=== PATIENT | female | born 1935 | race Caucasian/White ===

== ENCOUNTER 2017-12-23 12:44 | Inpatient (IN) | payer MEDICARE, OTHER, SELFPAY ==
[2017-12-23] VITALS (14 sets, daily range): BP systolic 133–150; BP diastolic 57–95; PULSE 73–122; RESP 14–21; TEMP 36.6–36.9; O2SAT 98–100; BMI 23.3; BMI 25.6; BMI 26.9; BMI 27.0
--- NOTE | 2017-12-23 12:53 | RAD_ITS ---
STUDY: X-RAY CHEST REASON FOR EXAM: Female, 82 years old. Trauma, dysrhythmia TECHNIQUE: Single AP portable view of the chest. COMPARISON: 02/28/2017 FINDINGS: Cardiac monitoring leads overlie the chest. The lungs are clear and expanded. There is no demonstrated pleural abnormality. There is mild cardiac enlargement. Normal mediastinum and ally[place]. Normal visualized pulmonary arteries. There is atherosclerotic calcification of the aortic arch with tortuosity. There are diffuse degenerative changes of the visualized thoracic spine. Normal visualized ribs, clavicles, and shoulders. There is no demonstrated abnormality of the visualized soft tissue structures of the upper abdomen. RAD/Chest 1 View IMPRESSION: Mild cardiomegaly. No focal consolidation. Electronically Signed: Lewis Washington DO at 13:38 EDT Tel , Service support ,
--- NOTE | 2017-12-23 12:53 | CT_ITS ---
STUDY: CT BRAIN WITHOUT CONTRAST REASON FOR EXAM: Female, 82 years old. Trauma, slurred speech RADIATION DOSAGE (If Supplied By Facility): CTDIvol = ( 44.99 ) mGy, DLP = ( 745.49 ) mGycm TECHNIQUE: Transaxial CT imaging of the brain was performed without administration of intravenous contrast material. Sagittal and coronal reconstructed images are provided and reviewed. Individualized dose optimization techniques were used for this CT. COMPARISON: None. FINDINGS: Normal soft tissue structures. The skull is demineralized. Normal size ventricles and extra-axial spaces for the patient's age. There are areas of decreased attenuation within the white matter tracts of the supratentorial brain, consistent with microvascular disease changes. Normal basal ganglia and thalami. Normal brainstem. Normal cerebellum. There is no intracranial hemorrhage. There are no findings of an acute ischemic infarction. Normal visualized paranasal sinuses. CT/Brain/Head without Contrast IMPRESSION: Chronic involutional changes. No acute intracranial abnormality. N.B. : The above information has been verbally conveyed by Lewis Washington DO to Fred Luu, Referring Physician, on 12/23/2017 13:08:04 (ET). Electronically Signed: Lewis Washington DO at 13:08 EDT Tel , Service support , N.B. : The above information has been verbally conveyed by Lewis Washington DO to Fred Luu, Referring Physician, on 12/23/2017 13:08:04 (ET).
--- NOTE | 2017-12-23 12:53 | EKG12_ITS ---
Test Reason : NEURO Blood Pressure : / mmHG Vent. Rate : 084 BPM Atrial Rate : 119 BPM P-R Int : 000 ms QRS Dur : 092 ms QT Int : 366 ms P-R-T Axes : 000 066 242 degrees QTc Int : [address] & T wave abnormality, consider inferior ischemia ST & T wave abnormality, consider anterolateral ischemia Abnormal ECG Confirmed by DINORA GALAN, KVNG ([id number]), art editor BRUCE MEJIA ([id number]) on 12/28/2017 3:39:51 PM Referred By: TODD Confirmed By:KVNG FARIAS MD
[2017-12-23 12:55] LABS: Bedside Glucose 167 mg/dL (70-110)
--- NOTE | 2017-12-23 12:57 | CT_ITS ---
STUDY: CTA OF THE BRAIN REASON FOR EXAM: Female, 82 years old. Stroke RADIATION DOSAGE (If Supplied By Facility): CTDIvol = ( 22.09 ) mGy, DLP = ( 537.88 ) mGycm TECHNIQUE: CT angiography was performed with a multi-detector CT scanner. Data acquisition was obtained from the skull base through the vertex following intravenous administration of 75 ml of to be 370. MIP images were reconstructed from the axial data set. Post-processing of the angiographic images was performed, with multiplanar reformation and 3D reconstruction. Individualized dose optimization techniques were used for this CT. COMPARISON: None. FINDINGS: Normal bilateral petrous carotid arteries. Mildly calcified right cavernous carotid artery with a normal supraclinoid bifurcation. Mildly calcified left cavernous carotid artery with a normal supraclinoid bifurcation. Normal right A1 segments of the anterior cerebral artery. Normal left A1 segments of the anterior cerebral artery. Normal intact anterior communicating artery (ACOM). Normal bilateral A2 segments of the anterior cerebral arteries. Normal right M1 and M2 segments of the middle cerebral arteries, with a normal M1 bifurcation. Normal left M1 and M2 segments of the middle cerebral arteries, with a normal M1 bifurcation. Nonvisualization of the posterior communicating arteries (PCOM). Normal bilateral vertebral arteries. Normal basilar artery with a normal basilar bifurcation. The visualized bilateral superior cerebellar (SCA) arteries are normal. Normal bilateral P1, P2 and visualized P3 segments of the posterior cerebral arteries. There is no demonstrated aneurysm of the [place]. IMPRESSION: Normal [place] without a demonstrated aneurysm or hemodynamically significant stenosis. N.B. : The above information has been verbally conveyed by Tyler Ambrose DO to Fred Luu, Referring Physician, on 12/23/2017 13:40:04 (ET). Electronically Signed: Tyler Ambrose DO at 13:38 EDT Tel [phone], Service support , STUDY: CTA NECK WITH CONTRAST REASON FOR EXAM: Female, 82 years old. Stroke TECHNIQUE: CT angiography with multi-detector data acquisition was performed from the aortic arch to the skull base following intravenous administration of 75ML ml of Isovue 370 contrast. MIP images were reconstructed from the axial data set. Post-processing of the angiographic images was performed, with multiplanar reformation and 3D reconstruction. Individualized dose optimization techniques were used for this CT. COMPARISON: None. FINDINGS: AORTIC ARCH: Calcified visualized aortic arch. Normal origins of the brachiocephalic, left common carotid arteries. Mildly calcified left subclavian arterial origin and proximal segment. RIGHT CAROTID ARTERIES: Normal right common carotid artery (CCA). Atherosclerotic calcifications at the right common carotid bulb without hemodynamically significant stenosis. Normal origin of the right internal carotid (ICA) artery without a hemodynamically significant stenosis. Normal visualized cervical portion of the right internal carotid artery. Normal origin of the right external carotid artery (ECA). LEFT CAROTID ARTERIES: Normal left common carotid artery (CCA). Mild atherosclerotic calcifications at the left common carotid bulb. Normal origin of the left internal carotid (ICA) artery without a hemodynamically significant stenosis. Normal visualized cervical portion of the left internal carotid artery. Normal origin of the left external carotid artery (ECA). VERTEBRAL ARTERIES: Normal bilateral vertebral arteries. CT/CTA Head W/WO Contrast IMPRESSION: Mild atherosclerotic calcifications at the bilateral carotid bulbs with no hemodynamically significant stenosis. Normal vertebral arteries. N.B. : The above information has been verbally conveyed by Tyler Ambrose DO to Fred Luu, Referring Physician, on 12/23/2017 13:40:04 (ET). Electronically Signed: Tyler Ambrose DO at 13:33 EDT Tel [phone], Service support , N.B. : The above information has been verbally conveyed by Tyler Ambrose DO to Fred Luu, Referring Physician, on 12/23/2017 13:40:04 (ET).
--- NOTE | 2017-12-23 12:57 | CT_ITS ---
STUDY: CTA OF THE BRAIN REASON FOR EXAM: Female, 82 years old. Stroke RADIATION DOSAGE (If Supplied By Facility): CTDIvol = ( 22.09 ) mGy, DLP = ( 537.88 ) mGycm TECHNIQUE: CT angiography was performed with a multi-detector CT scanner. Data acquisition was obtained from the skull base through the vertex following intravenous administration of 75 ml of to be 370. MIP images were reconstructed from the axial data set. Post-processing of the angiographic images was performed, with multiplanar reformation and 3D reconstruction. Individualized dose optimization techniques were used for this CT. COMPARISON: None. FINDINGS: Normal bilateral petrous carotid arteries. Mildly calcified right cavernous carotid artery with a normal supraclinoid bifurcation. Mildly calcified left cavernous carotid artery with a normal supraclinoid bifurcation. Normal right A1 segments of the anterior cerebral artery. Normal left A1 segments of the anterior cerebral artery. Normal intact anterior communicating artery (ACOM). Normal bilateral A2 segments of the anterior cerebral arteries. Normal right M1 and M2 segments of the middle cerebral arteries, with a normal M1 bifurcation. Normal left M1 and M2 segments of the middle cerebral arteries, with a normal M1 bifurcation. Nonvisualization of the posterior communicating arteries (PCOM). Normal bilateral vertebral arteries. Normal basilar artery with a normal basilar bifurcation. The visualized bilateral superior cerebellar (SCA) arteries are normal. Normal bilateral P1, P2 and visualized P3 segments of the posterior cerebral arteries. There is no demonstrated aneurysm of the [place]. IMPRESSION: Normal [place] without a demonstrated aneurysm or hemodynamically significant stenosis. N.B. : The above information has been verbally conveyed by Tyler Ambrose DO to Fred Luu, Referring Physician, on 12/23/2017 13:40:04 (ET). Electronically Signed: Tyler Ambrose DO at 13:38 EDT Tel [phone], Service support , STUDY: CTA NECK WITH CONTRAST REASON FOR EXAM: Female, 82 years old. Stroke TECHNIQUE: CT angiography with multi-detector data acquisition was performed from the aortic arch to the skull base following intravenous administration of 75ML ml of Isovue 370 contrast. MIP images were reconstructed from the axial data set. Post-processing of the angiographic images was performed, with multiplanar reformation and 3D reconstruction. Individualized dose optimization techniques were used for this CT. COMPARISON: None. FINDINGS: AORTIC ARCH: Calcified visualized aortic arch. Normal origins of the brachiocephalic, left common carotid arteries. Mildly calcified left subclavian arterial origin and proximal segment. RIGHT CAROTID ARTERIES: Normal right common carotid artery (CCA). Atherosclerotic calcifications at the right common carotid bulb without hemodynamically significant stenosis. Normal origin of the right internal carotid (ICA) artery without a hemodynamically significant stenosis. Normal visualized cervical portion of the right internal carotid artery. Normal origin of the right external carotid artery (ECA). LEFT CAROTID ARTERIES: Normal left common carotid artery (CCA). Mild atherosclerotic calcifications at the left common carotid bulb. Normal origin of the left internal carotid (ICA) artery without a hemodynamically significant stenosis. Normal visualized cervical portion of the left internal carotid artery. Normal origin of the left external carotid artery (ECA). VERTEBRAL ARTERIES: Normal bilateral vertebral arteries. CT/CTA Neck W/WO Contrast IMPRESSION: Mild atherosclerotic calcifications at the bilateral carotid bulbs with no hemodynamically significant stenosis. Normal vertebral arteries. N.B. : The above information has been verbally conveyed by Tyler Ambrose DO to Fred Luu, Referring Physician, on 12/23/2017 13:40:04 (ET). Electronically Signed: Tyler Ambrose DO at 13:33 EDT Tel [phone], Service support , N.B. : The above information has been verbally conveyed by Tyler Ambrose DO to Fred Luu, Referring Physician, on 12/23/2017 13:40:04 (ET).
[2017-12-23 13:37] LABS: Absolute Lymphocyte Count 0.54 X10^3/ul (0.83-4.51); Absolute Neutrophil Count 7.3 X10^3/uL (2.0-7.7); Basophil# 0.03 X10^3/uL; Basophil% 0.4 % (0-1); Eosinophils% 1.2 % (0-5); Hemoglobin 11.1 g/dl (12.0-15.0); Lymphocyte # 0.54 X10^3/ul (4.0); Lymphocyte % 6.5 % (19-41); Mean Corp Hgb Conc 32.6 g/gl (32-36); Mean Corpuscular Hgb 33.1 pg (27.0-32.0); Mean Corpuscular Volume 101.5 fL (81-99); Mean Platelet Vol. 9.6 fl (6.2-12.0); Monocyte# 0.29 X10^3/uL; Monocyte% 3.5 % (0-10); Neutrophil # 7.32 X10^3/uL (2.7-7.7); Platelet Count 230 K/mm3 (150-450); RBC Distribution Width CV 14.5 % (11.6-14.6); RBC Distribution Width SD 50.6 fl (35.1-43.9); Red Blood Count 3.35 M/mm3 (4.2-5.4); White Blood Count 8.3 K/mm3 (4.4-11.0)
[2017-12-23 13:38] LABS: Differential Indicated SCAN CRITERIA MET; POSITIVE COUNT NO; POSITIVE DIFFERENTIAL YES; POSITIVE MORPHOLOGY NO
--- NOTE | 2017-12-23 13:38 | PCA ---
PRINTED OLD EKG
[2017-12-23 13:46] LABS: International Normalized Ratio 1.2; Prothrombin Time (Protime)PT. 14.8 SECONDS (11.7-14.9)
[2017-12-23 13:47] LABS: Anion Gap 7 (5-15); BUN 24 mg/dL (7-18); Calcium,Total 8.2 mg/dL (8.5-10.1); Chloride 107 mmol/L (98-107); Creatinine, Serum 1.09 mg/dL (0.55-1.02); EST Glomerular Filtration Rate 51 mL/min (>60); Est Glom Filt Rate - Afr Amer 62 mL/min (>60); Estimated Creatinine Clearance 38.54 ml/min; Glucose 143 mg/dL (74-106); Partial Thromboplast Time 28.3 Seconds (24.1-36.2); Potassium 4.1 mmol/L (3.5-5.1); Sodium Level 139 mmol/L (136-145)
[2017-12-23 13:59] LABS: Hypochromasia RARE; Platelet Estimate ADEQUATE (ADEQ)
--- NOTE | 2017-12-23 14:04 | ED.VISSUMM ---
- ER Visit Summary Date of Service: 12/23/17 Chief Complaint: [] History of Present Illness: The patient is a 82 F [presents to the emergency department complaint of slurred speech that started about 20 minutes ago. Patient apparently had a mechanical fall initially about half an hour ago where her wheel from her walker got caught on the couch and she fell into the couch. Patient does not feel like she injured herself. Her head did not hurt. Subsequently patient then several minutes later developed slurred speech and called the squad. Patient denies any weakness currently. She denies any headache. Patient does have a history of atrial fibrillation but is currently not anticoagulated. Patient has not had prior stroke.] Physical Examination: [HEENT-PERRLA, EOMI. Cranial nerves II through XII grossly intact. TMs clear. Mucous membranes moist. No adenopathy. Cardiovascular-regular rate and rhythm without murmur or ectopy Lungs-clear to auscultation, chest wall stable without crepitus or subcu emphysema Abdomen-normoactive bowel sounds, soft, nontender, no rebound or rigidity, no peritoneal signs. Neuro exam-no facial droop noted, speech slightly garbled and thick. No expressive aphasia. No focal weakness. NIH stroke scale was a 1 for the slurred speech. Extremities-intact ?4, normal range of motion, normal pulses, atraumatic] Test Results: [CT scan of the brain without contrast showed nothing acute. EKG obtained on arrival shows sinus rhythm with a ventricular rate of 84 bpm with some nonspecific ST changes. CBC with differential showed a white of 8.3, hemoglobin 11, hematocrit 34, platelets 230. Chemistries unremarkable. INR was 1.2. Troponin was less than 0.015. Chest x-ray showed nothing acute. CTA of the head and neck showed nothing significant.] Emergency Department Course and Treatment: [Patient case initially discussed with neurologist on-call . Patient discussed with hospitalist and will be admitted] Treatment Plan: [Admit for further workup and evaluation of CVA Disposition: [Admit] Impression: [CVA Atrial fibrillation] This note was generated with [employer] dictation software. It may contain incorrect words, spelling, and punctuation that were not noted in review of the chart prior to signing ED Disposition - Plan for ED Patient: Chief Complaint: Neuro S/Sx Referrals: Delfin Kamara MD [Primary Care Provider] -
--- NOTE | 2017-12-23 14:21 | PCM.HP.STD ---
Problem List (1) Rheumatoid arthritis Status: Chronic (2) Nonrheumatic mitral valve regurgitation Status: Chronic (3) Persistent atrial fibrillation Status: Chronic (4) Hypertension Status: Chronic Qualifiers: Hypertension type: essential hypertension Qualified Code(s): I10 - Essential (primary) hypertension History of Present Illness Date of Admission: 12/23/17 Chief Complaint: Slurred speech. The patient is a 82 year old F with past medical history as mentioned above presented to the medicine because of slurred speech. This afternoon and around 30 minutes before coming to the emergency room, patient was walking using her walker when she tripped off and fell. According to her and shortly after, he notes that her speech is not normal, slurred and not making sense. Her [id number] was at the bedside and she mentioned that patient had facial drooping on the left side of her face. Her symptoms lasted for about 20 minutes and she started to get better after arrival to ER. Patient denies any blurred vision, vision numbness or tingling. She denied focal arm or leg weakness. She denied headache, chest pain shortness of breath. She denied dizziness or lightheadedness. She has a history of chronic atrial fibrillation and she has been on Cardizem and metoprolol for rate control and she was taken off Coumadin on March, for nosebleeds according to the patient. She has history of hypertension she has been on ramipril and metoprolol and her blood pressure seems to be under control. She has history of rheumatoid arthritis and she has been long-term steroid therapy. In the emergency department, her vital signs are stable. Her routine blood work is remarkable for chronic anemia with stable hemoglobin, otherwise normal. Troponin is negative. EKG revealed A. fib, T-wave inversion in leads II and III as well as lateral chest leads which are chronic compared to EKG from February,, no acute changes. Chest x-ray revealed mild cardiomegaly, no acute findings. CT scan brain showed no acute infarction or hemorrhage. CTA of the head and neck revealed no hemodynamically significant vascular disease or stenosis, pending official report. She is being admitted for probable TIA with slurred speech and facial drooping for evaluation. Past Medical History Past Medical History (Chronic Problems): Chronic Problems (Last Reviewed 07/13/17 @ 11:53 by Rossi Lala) Rheumatoid arthritis (Chronic) Nonrheumatic mitral valve regurgitation (Chronic) Nonrheumatic mitral (valve) stenosis (Chronic) Persistent atrial fibrillation (Chronic) Hypertension (Chronic) Medical History: Medical History (Last Reviewed 07/13/17 @ 11:53 by Rossi Lala) Nonrheumatic mitral valve regurgitation (Chronic) I34.0 Nonrheumatic mitral (valve) stenosis (Chronic) I34.2 Persistent atrial fibrillation (Chronic) I48.1 Hypertension (Chronic) I10 Anemia D64.9 Osteopenia M85.80 Rheumatoid arthritis M06.9 Squamous cell carcinoma of skin C44.92 Viral myocarditis B33.22 CAP (community acquired pneumonia) (Inactive) J18.9 Cardiac dysrhythmia (Inactive) I49.9 Chronic a-fib (Inactive) I48.2 Lower extremity pain, left (Inactive) M79.605 Nausea and vomiting (Inactive) R11.2 Rheumatoid arthritis (Inactive) M06.9 Sepsis associated hypotension (Inactive) A41.9 Allergies doxycycline Adverse Reaction (Severe, Verified 12/09/17 10:33) GI Upset hydrochlorothiazide Adverse Reaction (Unknown, Verified 12/09/17 10:33) Unknown tramadol HCl [From Myfacepage] Adverse Reaction (Verified 12/09/17 10:33) Vomiting Home Medications: Ambulatory Orders Medication Instructions Recorded Folic Acid 1 mg PO DAILY@0800 05/03/13 Methotrexate 10 mg PO BID 05/03/13 Metoprolol(XL)Succ [Toprol Xl 100 mg PO DAILY 05/03/13 (Beta Anne)] predniSONE tablet 5 mg PO DAILY 05/03/13 Diltiazem CD [Cardizem CD] 240 mg PO DAILY #30 cap 10/11/14 alendronate 70 mg tablet 70 mg PO QWEEK 07/10/17 cholecalciferol (vitamin D3) 2,000 2,000 unit PO QDAY cap 07/10/17 unit capsule multivit with 1 tab PO QDAY ea 07/10/17 [id number]-[id number]-YX-lutein 8 mg iron-400 mcg-300 mcg tablet leucovorin calcium 5 mg tablet 5 mg PO QWEEK tab 07/13/17 ramipril 10 mg capsule 20 mg PO DAILY cap 07/13/17 Surgical History: Surgical History (Last Reviewed 12/09/17 @ 10:34 by Claudia Ayala) History of breast biopsy Z98.890 Rt History of hip replacement, total Z96.649 Rt/Lt History of knee replacement Z96.659 Lt Surgical History: total hip arthroplasty, total knee arthroplasty Psychiatric History: No pertinent psych hx [employer] History: No pertinent [employer]GER history Lives: Spouse/ Significant Other Smoking Status: Never smoker Alcohol: None Drugs: None - *Family History Maternal Family History: Family History (Last Reviewed 12/09/17 @ 10:34 by Claudia Ayala) Mother Heart disease Hypertension History Items: - - Lung cancer Paternal Family History: Family History (Last Reviewed 12/09/17 @ 10:34 by Claudia Ayala) Mother Heart disease Hypertension History Items: No pertinent history, - Review of Systems Constitutional: Denies: Anorexia, Chills, Fever, Weakness Eyes: Denies: Blurred vision, Double vision, Drainage, Redness, Vision Change HEENT: Denies: Difficulty Hearing, Ear Pain, Eye Pain, Nasal Congestion, Sore Throat Cardiovascular: Denies: Chest Pain, Chest Pressure, Chest Tightness, Heaviness, Palpitations, Syncope Respiratory: Denies: Cough, Hemoptysis, Shortness of Breath, Sputum production, Wheezing Gastrointestinal: Denies: Abdominal Pain, Constipation, Diarrhea, Nausea, Vomiting Genitourinary: Denies: Dysuria, Frequency, Hematuria Musculoskeletal: Denies: Arm Pain, Back Pain, Foot Pain Skin: Denies: Dryness, Rash Neurological: Reports: Change in Speech, Slurred speech. Denies: Balance problems, Double vision, Confusion, Focal weakness, Headaches, Incoordination, Numbness, Tingling Psychiatric: Denies: Anxiety, Depression Endocrine: Denies: Change in Body Habitus, Polydipsia VTE Information - Inpt Only VTE Present on Admission: No VTE Mechan Device Prophylaxis: None VTE Pharm Prophylaxis ordered?: Yes - Physical Exam General: Alert, Oriented x3, Cooperative, No apparent distress HEENT: Atraumatic, PERRLA, EOMI Oral: Moist Mucosa, No Gingival or Mucosal Lesions/ Ulcerations Neck: Supple, No JVD, Negative Carotid Bruits, Trachea Midline, Thyroid Normal Size and Texture Lungs: Clear to auscultation, No rhonchi, No wheeze, No rales, Diminished Cardiovascular: Normal S1, Normal S2, PMI Normal, Irregular Rate Abdomen: Bowel Sounds Present, Soft, Non Tender, Non-Distended, No Hepato-splenomegaly Extremities: No clubbing, No cyanosis, No edema Skin: No rashes, No breakdown Lymphatic: No Cervical, Supraclavicular, or Inguinal Adenopathy Neurological: Cranial nerves II-XII grossly intact, Motor Exam 5/5 strength throughout Psych/Mental Status: Normal Affect, Appropriate, Alert and oriented to time, place, person, mood and affect Vital Signs Temp Pulse Resp BP Pulse Ox 98.4 F 97 16 133/90 H 99 12/23/17 12:46 12/23/17 13:18 12/23/17 13:18 12/23/17 13:18 12/23/17 13:18 Oxygen Delivery Method Room Air Weight: 158 lb 11.725 oz Body Mass Index (BMI) 25.6 Finger Stick Blood Glucose 126 Laboratory Tests Past 24 Hrs 12/23/17 12/23/17 12/23/17 13:21 13:21 13:21 WBC 8.3 RBC 3.35 L Hgb 11.1 L Hct 34.0 L MCV 101.5 H MCH 33.1 H MCHC 32.6 RDW 14.5 RDW Differential 50.6 H Plt Count 230 MPV 9.6 Immature Gran % (Auto) 0.400 Neut % (Auto) 88.0 H Lymph % (Auto) 6.5 L [place] % (Auto) 3.5 Eos % (Auto) 1.2 Baso % (Auto) 0.4 Absolute Neuts (auto) 7.3 Absolute Lymphs (auto) 0.54 L Total Counted Not Reportable Platelet Estimate ADEQUATE Hypochromasia RARE PT 14.8 INR 1.2 APTT 28.3 Sodium 139 Potassium 4.1 Chloride 107 Carbon Dioxide 25.0 Anion Gap 7 BUN 24 H Creatinine 1.09 H Estim Creat Clear Calc 38.54 Est GFR (MDRD) Af Amer 62 Est GFR (MDRD) Non-Af 51 L BUN/Creatinine Ratio 22.0 H Glucose 143 H Calcium 8.2 L Troponin I < 0.015 POC Glucose 12/23/17 12:48 POC Glucose 167 H Assessment/Plan This is an 82 years old female patient presented to the emergency room because of slurred speech and facial drooping and she is being admitted for evaluation for possible TIA. #1 possible TIA/slurred speech/facial drooping: At this time, her NIH score is 0. Her vital signs are stable. Initial CT scan brain showed no acute infarction or hemorrhage, pending official report. CTA of the neck was unremarkable, pending official report. She has no focal deficit on exam. She has a history of A. fib, was taken off Coumadin on March,. Plan: Admit to PCU for observation, cardiac monitoring, NIH stroke scale, 2D echocardiogram, MRI brain, fasting lipid profile, start baby aspirin, Lipitor, neurology consult, PT OT evaluation and treatment. #2 chronic atrial fibrillation: Rate is controlled, blood pressure stable. Continue Cardizem and metoprolol for rate control. She is not on anticoagulation. Apparently, Coumadin was discontinued on March, because of nosebleeds. Patient may need to go back on anticoagulation if MRI revealed acute stroke. #3 hypertension: Blood pressure stable, continue metoprolol and ramipril. #4 rheumatoid arthritis: Continue prednisone, methotrexate and leucovorin. #5 DVT prophylaxis: Subcu heparin. This note was generated with panOpen dictation software. It may contain incorrect words, spelling, and punctuation that were not noted in checking the note before signing. Code Visit OBSV E&M: 95730 Initial observation care L3
--- NOTE | 2017-12-23 14:31 | HP.PCM_ITS ---
Problem List (1) Rheumatoid arthritis Status: Chronic (2) Nonrheumatic mitral valve regurgitation Status: Chronic (3) Persistent atrial fibrillation Status: Chronic (4) Hypertension Status: Chronic Qualifiers: Hypertension type: essential hypertension Qualified Code(s): I10 - Essential (primary) hypertension History of Present Illness Date of Admission: 12/23/17 Chief Complaint: Slurred speech. The patient is a 82 year old F with past medical history as mentioned above presented to the medicine because of slurred speech. This afternoon and around 30 minutes before coming to the emergency room, patient was walking using her walker when she tripped off and fell. According to her and shortly after, he notes that her speech is not normal, slurred and not making sense. Her yyamhavk-ov-tdd was at the bedside and she mentioned that patient had facial drooping on the left side of her face. Her symptoms lasted for about 20 minutes and she started to get better after arrival to ER. Patient denies any blurred vision, vision numbness or tingling. She denied focal arm or leg weakness. She denied headache, chest pain shortness of breath. She denied dizziness or lightheadedness. She has a history of chronic atrial fibrillation and she has been on Cardizem and metoprolol for rate control and she was taken off Coumadin on March, for nosebleeds according to the patient. She has history of hypertension she has been on ramipril and metoprolol and her blood pressure seems to be under control. She has history of rheumatoid arthritis and she has been long-term steroid therapy. In the emergency department, her vital signs are stable. Her routine blood work is remarkable for chronic anemia with stable hemoglobin, otherwise normal. Troponin is negative. EKG revealed A. fib, T-wave inversion in leads II and III as well as lateral chest leads which are chronic compared to EKG from February,, no acute changes. Chest x-ray revealed mild cardiomegaly, no acute findings. CT scan brain showed no acute infarction or hemorrhage. CTA of the head and neck revealed no hemodynamically significant vascular disease or stenosis, pending official report. She is being admitted for probable TIA with slurred speech and facial drooping for evaluation. Past Medical History Past Medical History (Chronic Problems): Chronic Problems (Last Reviewed 07/13/17 @ 11:53 by Rossi Lala) Rheumatoid arthritis (Chronic) Nonrheumatic mitral valve regurgitation (Chronic) Nonrheumatic mitral (valve) stenosis (Chronic) Persistent atrial fibrillation (Chronic) Hypertension (Chronic) Medical History: Medical History (Last Reviewed 07/13/17 @ 11:53 by Rossi Lala) Nonrheumatic mitral valve regurgitation (Chronic) I34.0 Nonrheumatic mitral (valve) stenosis (Chronic) I34.2 Persistent atrial fibrillation (Chronic) I48.1 Hypertension (Chronic) I10 Anemia D64.9 Osteopenia M85.80 Rheumatoid arthritis M06.9 Squamous cell carcinoma of skin C44.92 Viral myocarditis B33.22 CAP (community acquired pneumonia) (Inactive) J18.9 Cardiac dysrhythmia (Inactive) I49.9 Chronic a-fib (Inactive) I48.2 Lower extremity pain, left (Inactive) M79.605 Nausea and vomiting (Inactive) R11.2 Rheumatoid arthritis (Inactive) M06.9 Sepsis associated hypotension (Inactive) A41.9 Allergies doxycycline Adverse Reaction (Severe, Verified 12/09/17 10:33) GI Upset hydrochlorothiazide Adverse Reaction (Unknown, Verified 12/09/17 10:33) Unknown tramadol HCl [From [facility]] Adverse Reaction (Verified 12/09/17 10:33) Vomiting Home Medications: Ambulatory Orders Medication Instructions Recorded Folic Acid 1 mg PO DAILY@0800 05/03/13 Methotrexate 10 mg PO BID 05/03/13 Metoprolol(XL)Succ [Toprol Xl 100 mg PO DAILY 05/03/13 (Beta Anne)] predniSONE tablet 5 mg PO DAILY 05/03/13 Diltiazem CD [Cardizem CD] 240 mg PO DAILY #30 cap 10/11/14 alendronate 70 mg tablet 70 mg PO QWEEK 07/10/17 cholecalciferol (vitamin D3) 2,000 2,000 unit PO QDAY cap 07/10/17 unit capsule multivit with 1 tab PO QDAY ea 07/10/17 jztpdbiv-qsef-SE-lutein 8 mg iron-400 mcg-300 mcg tablet leucovorin calcium 5 mg tablet 5 mg PO QWEEK tab 07/13/17 ramipril 10 mg capsule 20 mg PO DAILY cap 07/13/17 Surgical History: Surgical History (Last Reviewed 12/09/17 @ 10:34 by Claudia Ayala) History of breast biopsy Z98.890 Rt History of hip replacement, total Z96.649 Rt/Lt History of knee replacement Z96.659 Lt Surgical History: total hip arthroplasty, total knee arthroplasty Psychiatric History: No pertinent psych hx 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: No 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 FIELD SUPPORT REP history Lives: Spouse/ Significant Other Smoking Status: Never smoker Alcohol: None Drugs: None - *Family History Maternal Family History: Family History (Last Reviewed 12/09/17 @ 10:34 by Claudia Ayala) Mother Heart disease Hypertension History Items: - - Lung cancer Paternal Family History: Family History (Last Reviewed 12/09/17 @ 10:34 by Claudia Ayala) Mother Heart disease Hypertension History Items: No pertinent history, - Review of Systems Constitutional: Denies: Anorexia, Chills, Fever, Weakness Eyes: Denies: Blurred vision, Double vision, Drainage, Redness, Vision Change HEENT: Denies: Difficulty Hearing, Ear Pain, Eye Pain, Nasal Congestion, Sore Throat Cardiovascular: Denies: Chest Pain, Chest Pressure, Chest Tightness, Heaviness, Palpitations, Syncope Respiratory: Denies: Cough, Hemoptysis, Shortness of Breath, Sputum production, Wheezing Gastrointestinal: Denies: Abdominal Pain, Constipation, Diarrhea, Nausea, Vomiting Genitourinary: Denies: Dysuria, Frequency, Hematuria Musculoskeletal: Denies: Arm Pain, Back Pain, Foot Pain Skin: Denies: Dryness, Rash Neurological: Reports: Change in Speech, Slurred speech. Denies: Balance problems, Double vision, Confusion, Focal weakness, Headaches, Incoordination, Numbness, Tingling Psychiatric: Denies: Anxiety, Depression Endocrine: Denies: Change in Body Habitus, Polydipsia VTE Information - Inpt Only VTE Present on Admission: No VTE Mechan Device Prophylaxis: None VTE Pharm Prophylaxis ordered?: Yes - Physical Exam General: Alert, Oriented x3, Cooperative, No apparent distress HEENT: Atraumatic, PERRLA, EOMI Oral: Moist Mucosa, No Gingival or Mucosal Lesions/ Ulcerations Neck: Supple, No JVD, Negative Carotid Bruits, Trachea Midline, Thyroid Normal Size and Texture Lungs: Clear to auscultation, No rhonchi, No wheeze, No rales, Diminished Cardiovascular: Normal S1, Normal S2, PMI Normal, Irregular Rate Abdomen: Bowel Sounds Present, Soft, Non Tender, Non-Distended, No Hepato- splenomegaly Extremities: No clubbing, No cyanosis, No edema Skin: No rashes, No breakdown Lymphatic: No Cervical, Supraclavicular, or Inguinal Adenopathy Neurological: Cranial nerves II-XII grossly intact, Motor Exam 5/5 strength throughout Psych/Mental Status: Normal Affect, Appropriate, Alert and oriented to time, place, person, mood and affect Vital Signs Temp Pulse Resp BP Pulse Ox 98.4 F 97 16 133/90 H 99 12/23/17 12:46 12/23/17 13:18 12/23/17 13:18 12/23/17 13:18 12/23/17 13:18 Oxygen Delivery Method Room Air Weight: 158 lb 11.725 oz Body Mass Index (BMI) 25.6 Finger Stick Blood Glucose 126 Laboratory Tests Past 24 Hrs 12/23/17 12/23/17 12/23/17 13:21 13:21 13:21 WBC 8.3 RBC 3.35 L Hgb 11.1 L Hct 34.0 L MCV 101.5 H MCH 33.1 H MCHC 32.6 RDW 14.5 RDW Differential 50.6 H Plt Count 230 MPV 9.6 Immature Gran % (Auto) 0.400 Neut % (Auto) 88.0 H Lymph % (Auto) 6.5 L [place] % (Auto) 3.5 Eos % (Auto) 1.2 Baso % (Auto) 0.4 Absolute Neuts (auto) 7.3 Absolute Lymphs (auto) 0.54 L Total Counted Not Reportable Platelet Estimate ADEQUATE Hypochromasia RARE PT 14.8 INR 1.2 APTT 28.3 Sodium 139 Potassium 4.1 Chloride 107 Carbon Dioxide 25.0 Anion Gap 7 BUN 24 H Creatinine 1.09 H Estim Creat Clear Calc 38.54 Est GFR (MDRD) Af Amer 62 Est GFR (MDRD) Non-Af 51 L BUN/Creatinine Ratio 22.0 H Glucose 143 H Calcium 8.2 L Troponin I < 0.015 POC Glucose 12/23/17 12:48 POC Glucose 167 H Assessment/Plan This is an 82 years old female patient presented to the emergency room because of slurred speech and facial drooping and she is being admitted for evaluation for possible TIA. #1 possible TIA/slurred speech/facial drooping: At this time, her NIH score is 0. Her vital signs are stable. Initial CT scan brain showed no acute infarction or hemorrhage, pending official report. CTA of the neck was unremarkable, pending official report. She has no focal deficit on exam. She has a history of A. fib, was taken off Coumadin on March,. Plan: Admit to PCU for observation, cardiac monitoring, NIH stroke scale, 2D echocardiogram , MRI brain, fasting lipid profile, start baby aspirin, Lipitor, neurology consult, PT OT evaluation and treatment. #2 chronic atrial fibrillation: Rate is controlled, blood pressure stable. Continue Cardizem and metoprolol for rate control. She is not on anticoagulation. Apparently, Coumadin was discontinued on March, because of nosebleeds. Patient may need to go back on anticoagulation if MRI revealed acute stroke. #3 hypertension: Blood pressure stable, continue metoprolol and ramipril. #4 rheumatoid arthritis: Continue prednisone, methotrexate and leucovorin. #5 DVT prophylaxis: Subcu heparin. This note was generated with [employer]. cn dictation software. It may contain incorrect words, spelling, and punctuation that were not noted in checking the note before signing. Code Visit OBSV E&M: 07945 Initial observation care L3
--- NOTE | 2017-12-23 15:09 | MRI_ITS ---
STUDY: MRI BRAIN WITHOUT CONTRAST REASON FOR EXAM: Female, 82 years old. Left facial droop. Falls. TECHNIQUE: Standardized multiplanar fat and water weighted pulse sequences were obtained. COMPARISON: CT head and CTA head 12/23/2017. FINDINGS: Curvilinear restricted diffusion in the posterior right insular cortex (series 4, images 14-15) is also visible on the T2 FLAIR sequence. This is subacute ischemic infarct. There is T2 shine through in the right subinsular white matter due to an old lacunar cystic infarct. Normal size of the ventricles and extra-axial spaces for the patient's age. Normal white matter tracts of the supratentorial brain. Normal bilateral basal ganglia. Normal thalami. There is no extra-axial fluid accumulation. Normal flow voids within the major intracranial circulation suggesting patency by spin echo criteria. Normal sella turcica, pituitary gland, infundibular stalk, optic chiasm and hypothalamus. Normal tectal plate and pineal gland. Normal midbrain, heath and medulla. Normal cerebellum. Normal basal cisterns. Normal bilateral temporal bones. Normal bilateral internal auditory canals. No demonstrated orbital abnormality, within the constraints of a routine brain study. Normal visualized paranasal sinuses. Normal calvarium and skull base. Normal visualized soft tissue structures. Normal visualized upper cervical spine. MRI/Brain without Contrast IMPRESSION: 1. Subacute ischemic infarct in the right posterior insular cortex. 2. 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 Electronically Signed: Ash Monae MD at 9:13 EDT , Service support ,
--- NOTE | 2017-12-23 15:09 | ECHOD_ITS ---
Reason For Study: TIA/CVA Procedure This was a 2D Doppler, Color Flow transthoracic echocardiogram. Exam performed portable in patient room. Left Ventricle Normal size and thickness. The estimated ejection fraction is 65 %. No regional wall motion abnormalities noted. Right Ventricle Normal size and thickness. Normal systolic function. Atria The left atrium is severely enlarged. The right atrium is moderately enlarged. Normal atrial septum. Bubble contrast study negative for right to left interatrial shunt. Mitral Valve The mitral valve is structurally normal. No prolapse or stenosis seen. Mild (1+) mitral valve insufficiency. Tricuspid Valve Normal tricuspid valve. Mild to moderate (1-2+) tricuspid valve insufficiency. Right ventricular systolic pressure estimated to be 52 mmHg. Moderate pulmonary hypertension. Aortic Valve Trisinus/trileaflet aortic valve. Normal aortic valve. Pulmonic Valve Normal pulmonic valve. Great Vessels Normal aortic root. Normal arch. The inferior vena cava is dilated. Inferior vena cava collapse with sniff. Pericardium/Pleural No pericardial effusion. Medication Performed a rapid injection of agitated mix of 9 cc saline and 1cc air to assess for atrial septal defect. MMode/2D Measurements & Calculations LVIDd: 4.8 cm IVSd: 0.90 cm Ao root diam: 3.3 cm LVIDs: 3.1 cm LVPWd: 1.1 cm RVDd: 2.8 cm FS: 35.6 % LAV(MOD-bp): 73.3 ml EDV(MOD-sp4): 75.1 ml EDV(MOD-sp2): 59.0 ml LAV(MOD-bp) Indexed: 41.2 ml/m2 ESV(MOD-sp4): 28.8 ml EF(MOD-sp2): 64.0 % LAV(MOD-sp2): 58.0 ml EF(MOD-sp4): 61.7 % LAV(MOD-sp4): 81.2 ml SV(MOD-sp4): 46.3 ml SV(MOD-sp2): 37.7 ml LA A4 area: 25.7 cm2 RA A4 area: 19.1 cm2 Doppler Measurements & Calculations MV E max gina: 82.7 cm/sec Ao V2 max: 151.4 cm/sec LV V1 max: 105.4 cm/sec Ao max P.2 mmHg LV V1 max P.5 mmHg PA V2 max: 83.3 cm/sec TR max gina: 283.5 cm/sec TR max P.4 mmHg Interpretation Summary The estimated ejection fraction is 65 %. The right atrium is moderately enlarged. Bubble contrast study negative for right to left interatrial shunt. Mild (1+) mitral valve insufficiency. Mild to moderate (1-2+) tricuspid valve insufficiency. Right ventricular systolic pressure estimated to be 52 mmHg. Moderate pulmonary hypertension. The inferior vena cava is dilated Compared to echo report dated 10/10/2014, pt now appears to be in atrial fibrillation. LV Function has remained the same. RVSP has increased from 25 to 52 mm Hg. Ordering Physician: Charlie Deleon Referring Physician: MINERVA MAIER Performed By: Cathy Dykes, MAYUR, RVT
[2017-12-23] MEDS: 0.9% Normal Saline 1,000 ML 75 ML IV (16:07)
[2017-12-23] MEDS: Metoprolol Tartrate 5 MG/5 ML Vial IV (18:39)
[2017-12-23] MEDS: Heparin Injection (Vial) 5,000 UNIT/ML VIAL 5000 UNIT SC (22:03)
[2017-12-24] VITALS (11 sets, daily range): BP systolic 112–157; BP diastolic 71–98; PULSE 37–149; RESP 16–18; TEMP 36.8–37; O2SAT 95–97; BMI 26.9
--- NOTE | 2017-12-24 02:28 | NURSING ---
dr hoang notified of the pts elevated bp and hr of afib that goes into the 130's when ambulating to the restroom.
[2017-12-24] MEDS: 0.9% Normal Saline 1,000 ML 75 ML IV (05:45)
[2017-12-24] MEDS: Heparin Injection (Vial) 5,000 UNIT/ML VIAL 5000 UNIT SC ×2 (06:04→14:59)
[2017-12-24] MEDS: Metoprolol(XL)Succ 100 MG Tablet PO (06:05)
[2017-12-24] MEDS: Ramipril 10 MG Capsule 20 MG PO (06:07)
[2017-12-24] MEDS: dilTIAZem CD 240 MG Capsule PO (06:08)
[2017-12-24 06:49] LABS: Anion Gap 9 (5-15); BUN 15 mg/dL (7-18); Calcium,Total 8.1 mg/dL (8.5-10.1); Chloride 109 mmol/L (98-107); Cholesterol 149 mg/dL (200); Creatinine, Serum 0.72 mg/dL (0.55-1.02); EST Glomerular Filtration Rate 84 mL/min (>60); Est Glom Filt Rate - Afr Amer 101 mL/min (>60); Estimated Creatinine Clearance 37.12 ml/min; Glucose 91 mg/dL (74-106); High Density Lipoprotein 50 mg/dL; Potassium 3.8 mmol/L (3.5-5.1); Sodium Level 142 mmol/L (136-145); Triglycerides 126 mg/dL; Very Low Density Lipoprotein 25 mg/dL (5-40)
[2017-12-24] MEDS: Folic Acid 1 MG Tablet PO (08:36)
[2017-12-24] MEDS: predniSONE 5 MG Tablet PO (08:36)
[2017-12-24] MEDS: Aspirin 81 MG TAB.CHEW PO (08:36)
--- NOTE | 2017-12-24 11:30 | PCM.CONS.GEN ---
Problem List (1) Stroke Status: Acute Qualifiers: CVA mechanism: embolism Precerebral and cerebral artery: middle cerebral artery Laterality of affected vessel: right Qualified Code(s): I63.411 - Cerebral infarction due to embolism of right middle cerebral artery Reason for Consult Date of Consultation: 12/24/17 Reason for Consultation: Stroke History of Present Illness: The patient is a 82 year old CF with PMH HTN, Afib not on AC due to nose bleeds admitted with fall and slurred speech. Per patient she had a mechanical fall yesterday (12/23/17), her walker caught the end of a furniture and she fell, following which she was noticed to have slurred speech, per documentation her symptoms lasted for about 20 minutes, per patient it may have lasted longer, but at present patient is back to her baseline. She denies any ROBERTS, visual disturbances, focal motor weakness, sensory loss or speech disturbances. Per documentation patient had nose bleeds and she was taken off of Coumadin in March 2017. Per patient she does not take ASA at baseline, uses cane and walker to ambulate, does drive, does not need any assistance for her ADLs, and denies any frequent falls. Patient was not a tpa candidate on admission due to low NIHSS 1, MRI brain done on admission showed right posterior insular cortex subacute stroke, CTA head/neck did not show any hemodynamically significant stenosis or occlusion. Past Medical History Past Medical History (Chronic Problems): Chronic Problems (Last Updated 12/24/17 @ 11:51 by Jesus Sanchez MD) Rheumatoid arthritis (Chronic) Nonrheumatic mitral valve regurgitation (Chronic) Persistent atrial fibrillation (Chronic) Hypertension (Chronic) Medical History: Medical History (Last Updated 12/24/17 @ 11:51 by Jesus Sanchez MD) Nonrheumatic mitral valve regurgitation (Chronic) I34.0 Persistent atrial fibrillation (Chronic) I48.1 Hypertension (Chronic) I10 Anemia D64.9 Osteopenia M85.80 Rheumatoid arthritis M06.9 Squamous cell carcinoma of skin C44.92 Viral myocarditis B33.22 Nonrheumatic mitral (valve) stenosis I34.2 No documented in Echo done on 10/09/14 CAP (community acquired pneumonia) (Inactive) J18.9 Cardiac dysrhythmia (Inactive) I49.9 Chronic a-fib (Inactive) I48.2 Lower extremity pain, left (Inactive) M79.605 Nausea and vomiting (Inactive) R11.2 Rheumatoid arthritis (Inactive) M06.9 Sepsis associated hypotension (Inactive) A41.9 Allergies doxycycline Adverse Reaction (Severe, Verified 12/09/17 10:33) GI Upset hydrochlorothiazide Adverse Reaction (Unknown, Verified 12/09/17 10:33) Unknown tramadol HCl [From [facility]] Adverse Reaction (Verified 12/09/17 10:33) Vomiting Home Medications: Ambulatory Orders Medication Instructions Recorded Folic Acid 1 mg PO DAILY@0800 05/03/13 Methotrexate 10 mg PO BID 05/03/13 Metoprolol(XL)Succ [Toprol Xl 100 mg PO DAILY 05/03/13 (Beta Anne)] predniSONE tablet 5 mg PO DAILY 05/03/13 Diltiazem CD [Cardizem CD] 240 mg PO DAILY #30 cap 10/11/14 alendronate 70 mg tablet 70 mg PO QWEEK 07/10/17 cholecalciferol (vitamin D3) 2,000 2,000 unit PO QDAY cap 07/10/17 unit capsule multivit with 1 tab PO QDAY ea 07/10/17 tietzcdf-zqxj-XV-lutein 8 mg iron-400 mcg-300 mcg tablet leucovorin calcium 5 mg tablet 5 mg PO QWEEK tab 07/13/17 ramipril 10 mg capsule 20 mg PO DAILY cap 07/13/17 Surgical History: Surgical History (Last Reviewed 12/09/17 @ 10:34 by lCaudia Ayala) History of breast biopsy Z98.890 Rt History of hip replacement, total Z96.649 Rt/Lt History of knee replacement Z96.659 Lt Surgical History: total hip arthroplasty, total knee arthroplasty Psychiatric History: No pertinent psych hx 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 Lives: Spouse/ Significant Other Smoking Status: Never smoker Alcohol: None Drugs: None - *Family History Maternal Family History: Family History (Last Reviewed 12/09/17 @ 10:34 by Claudia Ayala) Mother Heart disease Hypertension History Items: - - Lung cancer Paternal Family History: Family History (Last Reviewed 12/09/17 @ 10:34 by Claudia Ayala) Mother Heart disease Hypertension History Items: No pertinent history, - Review of Systems Constitutional: Reports: - - complete ROS negative except as documented in HPI Patient Problems: Active and Suspected Problems (Last Updated 12/24/17 @ 11:51 by Jesus Sanchez MD) Stroke (Acute) - Physical Exam General: Alert HEENT: Normocephalic Neck: Supple Lungs: Clear to auscultation Cardiovascular: Normal S1, Normal S2 Abdomen: Bowel Sounds Present Extremities: No cyanosis Skin: No rashes Musculoskeletal: No Tenderness to Palpation of Joints or Extremities Neurological: - - consious, alert, CN 2-12 grossly intact, power 5/5 all 4 extremities, no sensory loss, no cerebellar signs, Reflexes + B/L B/S/T/K/A, gait deferred, NIHSS 0 at present Psych/Mental Status: Normal Affect Vital Signs Temp Pulse Resp BP Pulse Ox 98.2 F 105 H 18 129/71 H 96 12/24/17 08:28 12/24/17 08:28 12/24/17 08:28 12/24/17 08:28 12/24/17 08:28 Assessment/Plan All Active Problems (Last Updated 12/24/17 @ 11:51 by Jesus Sanchez MD) Stroke (Acute) The patient is a 82 year old CF with PMH HTN, Afib not on AC due to nose bleeds admitted with fall and slurred speech. Per patient she had a mechanical fall yesterday (12/23/17), her walker caught the end of a furniture and she fell, following which she was noticed to have slurred speech, per documentation her symptoms lasted for about 20 minutes, per patient it may have lasted longer, but at present patient is back to her baseline. She denies any ROBERTS, visual disturbances, focal motor weakness, sensory loss or speech disturbances. Per documentation patient had nose bleeds and she was taken off of Coumadin in March 2017. Per patient she does not take ASA at baseline, uses cane and walker to ambulate, does drive, does not need any assistance for her ADLs, and denies any frequent falls. Patient was not a tpa candidate on admission due to low NIHSS 1, MRI brain done on admission showed right posterior insular cortex subacute stroke, CTA head/neck did not show any hemodynamically significant stenosis or occlusion. 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 Can stop ASA. Patient might be a candidate for watchman device evaluation if continues to have nose bleed. [id number] score at present is atleast 6. Discussed in detail with patient and she understands the same. Bleeding risks with Eliquis discussed in detail. No Mitral valve stenosis reported on Echo done on 10/09/14. -Lipitor 40 mg PO q hs -MRI brain images reviewed- right posterior insular cortex subacute stroke -CTA head/neck- no hemodynamically significant stenosis or occlusion -LDL-74 -Await Hba1c and TTE -Cardiology consult for watchman device evaluation -Stroke risk factors discussed, stroke education provided -Goal BP < 130/80 mmHg and goal Hba1c < 7% -GI/DVT prophylaxis -Fall precautions -PT/OT/ST -Follow up with Neurology as outpatient in 2-3 weeks after discharge. -Please call with questions if any -Thank you for allowing us to participate in patient's care and management I spent 60 minutes taking history, doing physical examination, reviewing medical records, coordinating care and counseling the patient. Code Visit Inpatient E&M: 35582 Init Hosp L3
--- NOTE | 2017-12-24 11:40 | CON.PCM_ITS ---
Problem List (1) Stroke Status: Acute Qualifiers: CVA mechanism: embolism Precerebral and cerebral artery: middle cerebral artery Laterality of affected vessel: right Qualified Code(s): I63.411 - Cerebral infarction due to embolism of right middle cerebral artery Reason for Consult Date of Consultation: 12/24/17 Reason for Consultation: Stroke History of Present Illness: The patient is a 82 year old CF with PMH HTN, Afib not on AC due to nose bleeds admitted with fall and slurred speech. Per patient she had a mechanical fall yesterday (12/23/17), her walker caught the end of a furniture and she fell, following which she was noticed to have slurred speech, per documentation her symptoms lasted for about 20 minutes, per patient it may have lasted longer, but at present patient is back to her baseline. She denies any ROBERTS, visual disturbances, focal motor weakness, sensory loss or speech disturbances. Per documentation patient had nose bleeds and she was taken off of Coumadin in March 2017. Per patient she does not take ASA at baseline, uses cane and walker to ambulate, does drive, does not need any assistance for her ADLs, and denies any frequent falls. Patient was not a tpa candidate on admission due to low NIHSS 1, MRI brain done on admission showed right posterior insular cortex subacute stroke, CTA head/neck did not show any hemodynamically significant stenosis or occlusion. Past Medical History Past Medical History (Chronic Problems): Chronic Problems (Last Updated 12/24/17 @ 11:51 by Jesus Sanchez MD) Rheumatoid arthritis (Chronic) Nonrheumatic mitral valve regurgitation (Chronic) Persistent atrial fibrillation (Chronic) Hypertension (Chronic) Medical History: Medical History (Last Updated 12/24/17 @ 11:51 by Jesus Sanchez MD ) Nonrheumatic mitral valve regurgitation (Chronic) I34.0 Persistent atrial fibrillation (Chronic) I48.1 Hypertension (Chronic) I10 Anemia D64.9 Osteopenia M85.80 Rheumatoid arthritis M06.9 Squamous cell carcinoma of skin C44.92 Viral myocarditis B33.22 Nonrheumatic mitral (valve) stenosis I34.2 No documented in Echo done on 10/09/14 CAP (community acquired pneumonia) (Inactive) J18.9 Cardiac dysrhythmia (Inactive) I49.9 Chronic a-fib (Inactive) I48.2 Lower extremity pain, left (Inactive) M79.605 Nausea and vomiting (Inactive) R11.2 Rheumatoid arthritis (Inactive) M06.9 Sepsis associated hypotension (Inactive) A41.9 Allergies doxycycline Adverse Reaction (Severe, Verified 12/09/17 10:33) GI Upset hydrochlorothiazide Adverse Reaction (Unknown, Verified 12/09/17 10:33) Unknown tramadol HCl [From [facility]] Adverse Reaction (Verified 12/09/17 10:33) Vomiting Home Medications: Ambulatory Orders Medication Instructions Recorded Folic Acid 1 mg PO DAILY@0800 05/03/13 Methotrexate 10 mg PO BID 05/03/13 Metoprolol(XL)Succ [Toprol Xl 100 mg PO DAILY 05/03/13 (Beta Anne)] predniSONE tablet 5 mg PO DAILY 05/03/13 Diltiazem CD [Cardizem CD] 240 mg PO DAILY #30 cap 10/11/14 alendronate 70 mg tablet 70 mg PO QWEEK 07/10/17 cholecalciferol (vitamin D3) 2,000 2,000 unit PO QDAY cap 07/10/17 unit capsule multivit with 1 tab PO QDAY ea 07/10/17 chadaqxl-yjim-HO-lutein 8 mg iron-400 mcg-300 mcg tablet leucovorin calcium 5 mg tablet 5 mg PO QWEEK tab 07/13/17 ramipril 10 mg capsule 20 mg PO DAILY cap 07/13/17 Surgical History: Surgical History (Last Reviewed 12/09/17 @ 10:34 by Claudia Ayala) History of breast biopsy Z98.890 Rt History of hip replacement, total Z96.649 Rt/Lt History of knee replacement Z96.659 Lt Surgical History: total hip arthroplasty, total knee arthroplasty Psychiatric History: No pertinent psych hx 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: No pertinent 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 history Lives: Spouse/ Significant Other Smoking Status: Never smoker Alcohol: None Drugs: None - *Family History Maternal Family History: Family History (Last Reviewed 12/09/17 @ 10:34 by Claudia Ayala) Mother Heart disease Hypertension History Items: - - Lung cancer Paternal Family History: Family History (Last Reviewed 12/09/17 @ 10:34 by Claudia Ayala) Mother Heart disease Hypertension History Items: No pertinent history, - Review of Systems Constitutional: Reports: - - complete ROS negative except as documented in HPI Patient Problems: Active and Suspected Problems (Last Updated 12/24/17 @ 11:51 by Jesus Sanchez MD) Stroke (Acute) - Physical Exam General: Alert HEENT: Normocephalic Neck: Supple Lungs: Clear to auscultation Cardiovascular: Normal S1, Normal S2 Abdomen: Bowel Sounds Present Extremities: No cyanosis Skin: No rashes Musculoskeletal: No Tenderness to Palpation of Joints or Extremities Neurological: - - consious, alert, CN 2-12 grossly intact, power 5/5 all 4 extremities, no sensory loss, no cerebellar signs, Reflexes + B/L B/S/T/K/A, gait deferred, NIHSS 0 at present Psych/Mental Status: Normal Affect Vital Signs Temp Pulse Resp BP Pulse Ox 98.2 F 105 H 18 129/71 H 96 12/24/17 08:28 12/24/17 08:28 12/24/17 08:28 12/24/17 08:28 12/24/17 08:28 Assessment/Plan All Active Problems (Last Updated 12/24/17 @ 11:51 by Jesus Sanchez MD) Stroke (Acute) The patient is a 82 year old CF with PMH HTN, Afib not on AC due to nose bleeds admitted with fall and slurred speech. Per patient she had a mechanical fall yesterday (12/23/17), her walker caught the end of a furniture and she fell, following which she was noticed to have slurred speech, per documentation her symptoms lasted for about 20 minutes, per patient it may have lasted longer, but at present patient is back to her baseline. She denies any ROBERTS, visual disturbances, focal motor weakness, sensory loss or speech disturbances. Per documentation patient had nose bleeds and she was taken off of Coumadin in March 2017. Per patient she does not take ASA at baseline, uses cane and walker to ambulate, does drive, does not need any assistance for her ADLs, and denies any frequent falls. Patient was not a tpa candidate on admission due to low NIHSS 1, MRI brain done on admission showed right posterior insular cortex subacute stroke, CTA head/neck did not show any hemodynamically significant stenosis or occlusion. 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 Can stop ASA. Patient might be a candidate for watchman device evaluation if continues to have nose bleed. [id number] score at present is atleast 6. Discussed in detail with patient and she understands the same. Bleeding risks with Eliquis discussed in detail. No Mitral valve stenosis reported on Echo done on 10/09/14. -Lipitor 40 mg PO q hs -MRI brain images reviewed- right posterior insular cortex subacute stroke -CTA head/neck- no hemodynamically significant stenosis or occlusion -LDL-74 -Await Hba1c and TTE -Cardiology consult for watchman device evaluation -Stroke risk factors discussed, stroke education provided -Goal BP < 130/80 mmHg and goal Hba1c < 7% -GI/DVT prophylaxis -Fall precautions -PT/OT/ST -Follow up with Neurology as outpatient in 2-3 weeks after discharge. -Please call with questions if any -Thank you for allowing us to participate in patient's care and management I spent 60 minutes taking history, doing physical examination, reviewing medical records, coordinating care and counseling the patient. Code Visit Inpatient E&M: 82535 Init Hosp L3
--- NOTE | 2017-12-24 14:30 | PCM.DC ---
- Discharge Diagnoses Current Active Problems: Current Active and Chronic Problems (Last Updated 12/24/17 @ 11:51 by Jesus Sanchez MD) Rheumatoid arthritis (Chronic) Stroke (Acute) You will use the following diet at home:: Cardiac Discharge Activity: Return to Normal Activity Call your doctor if you observe: Numbness or Tingling, Shortness of breath, Dizziness, Chest pain Allergies/Adverse Reactions: Allergies doxycycline Adverse Reaction (Severe, Verified 12/09/17 10:33) GI Upset hydrochlorothiazide Adverse Reaction (Unknown, Verified 12/09/17 10:33) Unknown tramadol HCl [From [facility]] Adverse Reaction (Verified 12/09/17 10:33) Vomiting Medications to take at Discharge Folic Acid 1 mg PO DAILY@0800 05/03/13 Methotrexate 10 mg PO BID 05/03/13 Metoprolol(XL)Succ [Toprol Xl (Beta Anne)] 100 mg PO DAILY 05/03/13 predniSONE tablet 5 mg PO DAILY 05/03/13 Diltiazem CD [Cardizem CD] 240 mg PO DAILY #30 cap 10/11/14 alendronate 70 mg tablet 70 mg PO QWEEK 07/10/17 cholecalciferol (vitamin D3) 2,000 unit capsule 2,000 unit PO QDAY cap 07/10/17 multivit with tlthdiva-rcyf-WK-lutein 8 mg iron-400 mcg-300 mcg tablet 1 tab PO QDAY ea 07/10/17 leucovorin calcium 5 mg tablet 5 mg PO QWEEK tab 07/13/17 ramipril 10 mg capsule 20 mg PO DAILY cap 07/13/17 Apixaban [Eliquis] 5 mg PO BID #60 tab 12/24/17 Atorvastatin Calcium [Lipitor] 40 mg PO QHS #30 tab 12/24/17 The following prescriptions were given: Atorvastatin Calcium [Lipitor] 40 mg PO QHS #30 tab Apixaban [Eliquis] 5 mg PO BID #60 tab Primary Care Physician: Delfin Kamara MD [Primary Care Provider] - Please follow up with your Primary Care Physician in: 1 Week Test Results: Please Follow Up With: Jesus Sanchez MD When: 2-3 Weeks Please Follow Up With: Radames Sharpe MD When: 1-2 Weeks Proposed Discharge Date: 12/24/17
--- NOTE | 2017-12-24 14:33 | PCM.DC.SUM ---
<Do Washington - Last Filed: 12/24/17 14:46> Discharge Date and Diagnosis Date of Admission: 12/23/17 Date of Discharge: 12/24/17 - Primary Discharge Diagnosis Active and Suspected Problems (Last Updated 12/24/17 @ 11:51 by Jesus Sanchez MD) 1. Subacute right MCA stroke - Secondary Discharge Diagnosis Chronic Problems (Last Updated 12/24/17 @ 11:51 by Jesus Sanchez MD) Rheumatoid arthritis (Chronic) Nonrheumatic mitral valve regurgitation (Chronic) Persistent atrial fibrillation (Chronic) Hypertension (Chronic) Hospital Course and Treatment Imaging Results: Diagnostic Data Brain CT 12/23/17 12:53 IMPRESSION: Chronic involutional changes. No acute intracranial abnormality. N.B. : The above information has been verbally conveyed by Lewis Washington DO to Fred Luu, Referring Physician, on 12/23/2017 13:08:04 (ET). Electronically Signed: Lewis Washington DO at 13:08 EDT Tel , Service support , N.B. : The above information has been verbally conveyed by Lewis Washington DO to Fred Luu, Referring Physician, on 12/23/2017 13:08:04 (ET). Chest X-Ray 12/23/17 12:53 IMPRESSION: Mild cardiomegaly. No focal consolidation. Electronically Signed: Lewis Washington DO at 13:38 EDT Tel , Service support , Head CTA 12/23/17 12:57 IMPRESSION: Mild atherosclerotic calcifications at the bilateral carotid bulbs with no hemodynamically significant stenosis. Normal vertebral arteries. N.B. : The above information has been verbally conveyed by Tyler Ambrose DO to Fred Luu, Referring Physician, on 12/23/2017 13:40:04 (ET). Electronically Signed: Tyler Ambrose DO at 13:33 EDT Tel [phone], Service support , N.B. : The above information has been verbally conveyed by Tyler Ambrose DO to Fred Luu, Referring Physician, on 12/23/2017 13:40:04 (ET). Neck CTA 12/23/17 12:57 IMPRESSION: Mild atherosclerotic calcifications at the bilateral carotid bulbs with no hemodynamically significant stenosis. Normal vertebral arteries. N.B. : The above information has been verbally conveyed by Tyler Ambrose DO to Fred Luu, Referring Physician, on 12/23/2017 13:40:04 (ET). Electronically Signed: Tyler Ambrose DO at 13:33 EDT Tel [phone], Service support , N.B. : The above information has been verbally conveyed by Tyler Ambrose DO to Fred Luu, Referring Physician, on 12/23/2017 13:40:04 (ET). Brain MRI 12/23/17 15:09 IMPRESSION: 1. Subacute ischemic infarct in the right posterior insular cortex. 2. 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 Electronically Signed: Ash Monae MD at 9:13 EDT , Service support , Dr. Sanchez- Neurology Operations: None Procedures: 2-D Echocardiogram Summary of Care Provided: The patient is a 82 year old F admitted 12/23/2017 due to slurred speech. She has a past medical history of rheumatoid arthritis, nonrheumatic mitral valve regurgitation, nonrheumatic mitral valve stenosis, chronic atrial fibrillation, hypertension. Patient noted to have right MCA subacute stroke as noted by MRI report above. Neurology consulted. CTA of head and neck showed no significant stenosis or occlusion. Patient has chronic atrial fibrillation, previously on Coumadin which was discontinued March 2017 due to epistaxis. Neurology recommending starting patient on Eliquis 5 mg twice daily. Recommending evaluation for a watchman device. Patient follows with Dr. Sharpe. Continue atorvastatin 40 mg nightly at discharge. Patient evaluated by PT/OT/ST. Patient has minimal residual right facial droop without swallowing difficulties. Patient did well with physical therapy and did not require any home-going needs. She will continue to use walker with ambulation. She denies falls at home. Patient is stable for discharge home with follow-up with primary care physician, cardiology and neurology. Echocardiogram completed with results pending at discharge. Patient seen and examined prior to discharge. Alert, oriented, no acute distress. Heart rate regular in rate, atrial fibrillation. Lungs clear. Abdomen soft, nontender. Neuro grossly intact with the exception of mild residual right facial droop. Skin intact. No tenderness to palpation of joints. Normal affect. Vital signs stable. This patient was seen by ERIC Viramontes under the supervision of Dr. Berger. Discharge Diet: Low fat/ Low Cholesterol Discharge Activity: Return to Normal Activity Call your doctor if you observe: Numbness or Tingling, Shortness of breath, Dizziness, Chest pain Home Medications: Medications to take at Discharge Folic Acid 1 mg PO DAILY@0800 05/03/13 Methotrexate 10 mg PO BID 05/03/13 Metoprolol(XL)Succ [Toprol Xl (Beta Anne)] 100 mg PO DAILY 05/03/13 predniSONE tablet 5 mg PO DAILY 05/03/13 Diltiazem CD [Cardizem CD] 240 mg PO DAILY #30 cap 10/11/14 alendronate 70 mg tablet 70 mg PO QWEEK 07/10/17 cholecalciferol (vitamin D3) 2,000 unit capsule 2,000 unit PO QDAY cap 07/10/17 multivit with dgocicfk-sunu-ME-lutein 8 mg iron-400 mcg-300 mcg tablet 1 tab PO QDAY ea 07/10/17 leucovorin calcium 5 mg tablet 5 mg PO QWEEK tab 07/13/17 ramipril 10 mg capsule 20 mg PO DAILY cap 07/13/17 Apixaban [Eliquis] 5 mg PO BID #60 tab 12/24/17 Atorvastatin Calcium [Lipitor] 40 mg PO QHS #30 tab 12/24/17 Following Prescrptions Were Given to Patient: Atorvastatin Calcium [Lipitor] 40 mg PO QHS #30 tab Apixaban [Eliquis] 5 mg PO BID #60 tab Primary Care Physician: Delfin Kamara MD [Primary Care Provider] - Please follow up with your Primary Care Physician in: 1 Week Please Follow Up With: Jesus Sanchez MD When: 2-3 Weeks Please Follow Up With: Radames Sharpe MD When: 1-2 Weeks Disposition: Home Minutes spent on discharge:: 35 Patient Condition:: Stable Medical Necessity - Tobacco Use Smoking Status: Never smoker Meaningful Use Info Meaningful Use Diagnoses (Choose all that apply): Ischemic CVA - CVA Therapy Assessed for PT,OT and/or ST?: Yes - Ischemic Stroke Antithrombotic order at d/c?: Yes Dx of Atrial fib/flutter?: Yes Anticoagulant at discharge?: Yes Statins at discharge?: Yes Primary Dx Acute Ischemic CVA?: Yes IV tPA ordered during stay?: No Reason IV t-PA not ordered: Medical Contraindication <AbChandler - Last Filed: 12/25/17 12:48> Discharge Date and Diagnosis - Secondary Discharge Diagnosis Chronic Problems (Last Updated 12/24/17 @ 11:51 by Jesus Sanchez MD) Rheumatoid arthritis (Chronic) Nonrheumatic mitral valve regurgitation (Chronic) Persistent atrial fibrillation (Chronic) Hypertension (Chronic) Hospital Course and Treatment Summary of Care Provided: [] This patient was seen in conjunction with TELE RNDo. I have independently interviewed and examined the patient and reviewed pertinent history, examination findings, laboratory and plan of management. I have reviewed the note and agree with the documented findings with the few additional points. In brief, patient is admitted for slurred speech and slight left-sided facial droop with history of nonvalvular mitral valve regurgitation, chronic A. fib not on anticoagulation. MRI brain showed right posterior insular cortex subacute stroke. CT head and neck did not show hemodynamically significant stenosis or occlusion. A1c 6.0. Troponin normal. Fasting lipid profile within normal limit. The patient had echo on 10/09/2013 which did not show mitral valve stenosis. Patient had echo which showed EF 65% with no regional wall motion abnormality. Bubble contrast study negative for wdgcf-cu-fvib interatrial shunt. Left atrium severely enlarged. Right atrium moderately enlarged. Mild MR and TR. RVSP 52 images history of moderate pulmonary hypertension neurologist advised to follow-up with video system repairer to further evaluate for watchman device for chronic A. fib. Discharge meds reconciliation done. Follow-up instructions completed. Total time spent, exact 35 minutes on discharge meds reconciliation, examination, review of imaging and blood test and discussion with the patient on follow-up instructions. I have discussed my assessment with Do GARCÍA and orders have been reviewed. Code Visit Inpatient E&M: 09264 Disch Hosp
--- NOTE | 2017-12-24 14:41 | DS.PCM_ITS ---
<Do Washington - Last Filed: 12/24/17 14:46> Discharge Date and Diagnosis Date of Admission: 12/23/17 Date of Discharge: 12/24/17 - Primary Discharge Diagnosis Active and Suspected Problems (Last Updated 12/24/17 @ 11:51 by Jesus Sanchze MD) 1. Subacute right MCA stroke - Secondary Discharge Diagnosis Chronic Problems (Last Updated 12/24/17 @ 11:51 by Jesus Sanchez MD) Rheumatoid arthritis (Chronic) Nonrheumatic mitral valve regurgitation (Chronic) Persistent atrial fibrillation (Chronic) Hypertension (Chronic) Hospital Course and Treatment Imaging Results: Diagnostic Data Brain CT 12/23/17 12:53 IMPRESSION: Chronic involutional changes. No acute intracranial abnormality. N.B. : The above information has been verbally conveyed by Lewis Washington DO to Fred Luu, Referring Physician, on 12/23/2017 13:08:04 (ET). Electronically Signed: Lewis Washington DO at 13:08 EDT Tel , Service support , N.B. : The above information has been verbally conveyed by Lewis Washington DO to Fred Luu, Referring Physician, on 12/23/2017 13:08:04 (ET). Chest X-Ray 12/23/17 12:53 IMPRESSION: Mild cardiomegaly. No focal consolidation. Electronically Signed: Lewis Washington DO at 13:38 EDT Tel , Service support , Head CTA 12/23/17 12:57 IMPRESSION: Mild atherosclerotic calcifications at the bilateral carotid bulbs with no hemodynamically significant stenosis. Normal vertebral arteries. N.B. : The above information has been verbally conveyed by Tyler Ambrose DO to Fred Luu, Referring Physician, on 12/23/2017 13:40:04 (ET). Electronically Signed: Tyler Ambrose DO at 13:33 EDT Tel [phone], Service support , N.B. : The above information has been verbally conveyed by Tyler Ambrose DO to Fred Luu, Referring Physician, on 12/23/2017 13:40:04 (ET). Neck CTA 12/23/17 12:57 IMPRESSION: Mild atherosclerotic calcifications at the bilateral carotid bulbs with no hemodynamically significant stenosis. Normal vertebral arteries. N.B. : The above information has been verbally conveyed by Tyler Ambrose DO to Fred Luu, Referring Physician, on 12/23/2017 13:40:04 (ET). Electronically Signed: Tyler Ambrose DO at 13:33 EDT Tel [phone], Service support , N.B. : The above information has been verbally conveyed by Tyler Ambrose DO to Fred Luu, Referring Physician, on 12/23/2017 13:40:04 (ET). Brain MRI 12/23/17 15:09 IMPRESSION: 1. Subacute ischemic infarct in the right posterior insular cortex. 2. 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 Electronically Signed: Ash Monae MD at 9:13 EDT , Service support , Dr. Sanchez- Neurology Operations: None Procedures: 2-D Echocardiogram Summary of Care Provided: The patient is a 82 year old F admitted 12/23/2017 due to slurred speech. She has a past medical history of rheumatoid arthritis, nonrheumatic mitral valve regurgitation, nonrheumatic mitral valve stenosis, chronic atrial fibrillation, hypertension. Patient noted to have right MCA subacute stroke as noted by MRI report above. Neurology consulted. CTA of head and neck showed no significant stenosis or occlusion. Patient has chronic atrial fibrillation, previously on Coumadin which was discontinued March 2017 due to epistaxis. Neurology recommending starting patient on Eliquis 5 mg twice daily. Recommending evaluation for a watchman device. Patient follows with Dr. Sharpe. Continue atorvastatin 40 mg nightly at discharge. Patient evaluated by PT/OT/ ST. Patient has minimal residual right facial droop without swallowing difficulties. Patient did well with physical therapy and did not require any home-going needs. She will continue to use walker with ambulation. She denies falls at home. Patient is stable for discharge home with follow-up with primary care physician, cardiology and neurology. Echocardiogram completed with results pending at discharge. Patient seen and examined prior to discharge. Alert, oriented, no acute distress. Heart rate regular in rate, atrial fibrillation. Lungs clear. Abdomen soft, nontender. Neuro grossly intact with the exception of mild residual right facial droop. Skin intact. No tenderness to palpation of joints. Normal affect. Vital signs stable. This patient was seen by ERIC Viramontes under the supervision of Dr. Berger. Discharge Diet: Low fat/ Low Cholesterol Discharge Activity: Return to Normal Activity Call your doctor if you observe: Numbness or Tingling, Shortness of breath, Dizziness, Chest pain Home Medications: Medications to take at Discharge Folic Acid 1 mg PO DAILY@0800 05/03/13 Methotrexate 10 mg PO BID 05/03/13 Metoprolol(XL)Succ [Toprol Xl (Beta Anne)] 100 mg PO DAILY 05/03/13 predniSONE tablet 5 mg PO DAILY 05/03/13 Diltiazem CD [Cardizem CD] 240 mg PO DAILY #30 cap 10/11/14 alendronate 70 mg tablet 70 mg PO QWEEK 07/10/17 cholecalciferol (vitamin D3) 2,000 unit capsule 2,000 unit PO QDAY cap multivit with ufurbojs-zytk-GP-lutein 8 mg iron-400 mcg-300 mcg tablet 1 tab PO QDAY ea 07/10/17 leucovorin calcium 5 mg tablet 5 mg PO QWEEK tab 07/13/17 ramipril 10 mg capsule 20 mg PO DAILY cap 07/13/17 Apixaban [Eliquis] 5 mg PO BID #60 tab 12/24/17 Atorvastatin Calcium [Lipitor] 40 mg PO QHS #30 tab 12/24/17 Following Prescrptions Were Given to Patient: Atorvastatin Calcium [Lipitor] 40 mg PO QHS #30 tab Apixaban [Eliquis] 5 mg PO BID #60 tab Primary Care Physician: Delfin Kamara MD [Primary Care Provider] - Please follow up with your Primary Care Physician in: 1 Week Please Follow Up With: Jesus Sanchez MD When: 2-3 Weeks Please Follow Up With: Radames Sharpe MD When: 1-2 Weeks Disposition: Home Minutes spent on discharge:: 35 Patient Condition:: Stable Medical Necessity - Tobacco Use Smoking Status: Never smoker Meaningful Use Info Meaningful Use Diagnoses (Choose all that apply): Ischemic CVA - CVA Therapy Assessed for PT,OT and/or ST?: Yes - Ischemic Stroke Antithrombotic order at d/c?: Yes Dx of Atrial fib/flutter?: Yes Anticoagulant at discharge?: Yes Statins at discharge?: Yes Primary Dx Acute Ischemic CVA?: Yes IV tPA ordered during stay?: No Reason IV t-PA not ordered: Medical Contraindication <AbChandler - Last Filed: 12/25/17 12:48> Discharge Date and Diagnosis - Secondary Discharge Diagnosis Chronic Problems (Last Updated 12/24/17 @ 11:51 by Jesus Sanchez MD) Rheumatoid arthritis (Chronic) Nonrheumatic mitral valve regurgitation (Chronic) Persistent atrial fibrillation (Chronic) Hypertension (Chronic) Hospital Course and Treatment Summary of Care Provided: [] This patient was seen in conjunction with FARM ADVISERDo. I have independently interviewed and examined the patient and reviewed pertinent history, examination findings, laboratory and plan of management. I have reviewed the note and agree with the documented findings with the few additional points. In brief, patient is admitted for slurred speech and slight left-sided facial droop with history of nonvalvular mitral valve regurgitation, chronic A. fib not on anticoagulation. MRI brain showed right posterior insular cortex subacute stroke. CT head and neck did not show hemodynamically significant stenosis or occlusion. A1c 6.0. Troponin normal. Fasting lipid profile within normal limit. The patient had echo on 10/09/2013 which did not show mitral valve stenosis. Patient had echo which showed EF 65% with no regional wall motion abnormality. Bubble contrast study negative for qvgss-aw-refy interatrial shunt. Left atrium severely enlarged. Right atrium moderately enlarged. Mild MR and TR. RVSP 52 images history of moderate pulmonary hypertension neurologist advised to follow-up with rivet sorter to further evaluate for watchman device for chronic A. fib. Discharge meds reconciliation done. Follow-up instructions completed. Total time spent, exact 35 minutes on discharge meds reconciliation, examination , review of imaging and blood test and discussion with the patient on follow-up instructions. I have discussed my assessment with Do GARCÍA and orders have been reviewed. Code Visit Inpatient E&M: 44831 Disch Hosp
--- NOTE | 2017-12-24 15:23 | CASEMGMT ---
Per Jackie DRAMATIC TEACHER, pt to be sent home on Eliquis at discharge and script faxed to [facility] previously. Call to [facility] and per tech, the med is covered but co-pay is $332.92. Pt updated at this time and 30 day free trial card provided to pt at this time and voices understanding. Pt voices no further concerns/needs at this time. Maribel CABRAL CM
--- NOTE | 2017-12-24 15:30 | CASEMGMT ---
Face to Face with patient for initial transition planning/care coordination assessment. MARIANNA GILLESPIE introduced self and role at [facility], pt voices understanding and consents to assessment at this time. Pt is sitting up in bed in no distress at this time. Pt is A/O x4 at this time and answers all questions appropriately at this time. Care providers, pharmacy, and demographics verified. See attached link. Pt voices no further concerns/needs at this time. Advised pt to ask for CM if any further questions/concerns/needs arise, voices understanding. Pt aware that she needs to f/u with Dr. Sharpe in the next couple weeks regarding Marie, voices understanding. PLAN[place] MARIANNA GILLESPIE
--- NOTE | 2017-12-28 15:47 | CASEMGMT ---
MARIANNA CM Discharge Follow-up Phone Call: ARYAN: Brianne Strata: 3 Call Date: 12/28/17 Discharge Date: 12/24/17 Time of Call: 1545 Duration: 1 min Admitting Diagnosis: Slurred speech, facial dropping, TIA MARIANNA GILLESPIE attempted to complete follow-up phone call after recent hospitalization. No answer, voice message left with return contact information.
== END 2017-12-24 17:19 | disposition home or self-care (01) | DRG 65 ==
LOC: ED 13:08 → PCU 14:43
PROVIDERS: Nurse Practitioner Family; Admitting Provider Hospitalist; Emergency Provider Emergency Medicine; Family Provider Family Medicine; PCP Family Medicine; Visit Provider Internal Medicine
DX: I63.9 Cerebral infarction, unspecified (principal); I48.1 Persistent atrial fibrillation; I10 Essential (primary) hypertension; Z79.899 Other long term (current) drug therapy; R29.810 Facial weakness; R47.81 Slurred speech; R29.701 NIHSS score 1; M06.9 Rheumatoid arthritis, unspecified; I34.0 Nonrheumatic mitral (valve) insufficiency
CPT/HCPCS: 36415; 70450; 70496; 70498; 70551; 71045; 80048; 80061; 82962; 83036; 84484; 85025; 85610; 85730; 93005; 93306; 97162; 97165; 99283; J7030; Q9967; A4216

== ENCOUNTER 2018-12-17 05:48 | Emergency (ER) | payer MEDICARE, OTHER, SELFPAY ==
[2018-09-02 09:43] VITALS: BMI 27.4
[2018-12-17 05:49] VITALS: BP 140/71; PULSE 96; RESP 18; TEMP 36.4; O2SAT 99; BMI 25.9
--- NOTE | 2018-12-17 06:11 | RAD_ITS ---
STUDY: X-RAY - PELVIS AND LEFT HIP REASON FOR EXAM: Female, 83 years old. Left hip pain TECHNIQUE: AP pelvis 2 views of the left hip COMPARISON: pelvis radiograph from 09/10/2014 FINDINGS: There is a non-specific bowel gas pattern. Normal visualized soft tissue structures. There is bilateral hip total endoprosthesis without evidence for hardware failure or loosening. No acute fracture visualized. RAD/HIP, UNI W/ Pelvis 2-3 Views IMPRESSION: Bilateral total hip arthroplasties without evidence for failure or loosening. Electronically Signed: Enrico Munguia, at 6:54 EDT Tel , Service support ,
--- NOTE | 2018-12-17 06:11 | RAD_ITS ---
STUDY: X-RAY - LEFT KNEE REASON FOR EXAM: Female, 83 years old. Knee pain for 3 weeks TECHNIQUE: 5 view(s) of the knee. COMPARISON: None. FINDINGS: There is a left knee endoprosthesis without evidence for hardware failure or loosening. No acute fracture or subluxation. No knee joint effusion. The soft tissue structures are unremarkable. RAD/Knee 4 or More Views IMPRESSION: Left knee endoprosthesis without evidence for hardware loosening or failure. No acute fracture visualized. Electronically Signed: Enrico Munguia, at 6:50 EDT Tel , Service support ,
--- NOTE | 2018-12-17 06:14 | ED.VISSUMM ---
- ER Visit Summary Date of Service: 12/17/18 Chief Complaint: Left knee and hip pain History of Present Illness: The patient is a 83 F who presents with left hip and knee pain. This been going on at least a couple of weeks. She has a prior left total knee arthroplasty. She initially was having knee pain but is now also developed some pain in her left hip which she describes as throbbing. No history of fall or injury. She has been taking Tylenol with little relief. She actually has an appointment later today with her primary care physician. She called [facility] who did her knee surgery but is not able to see them for a couple of weeks. Physical Examination: Afebrile vitals unremarkable No distress lying comfortably in bed Heart regular rate and rhythm Lungs are clear Patient has active full range of motion of the left hip she does have some lateral tenderness she has diffuse tenderness of the left knee which is nonfocal no appreciable effusion is not hot to the touch she is able to go through active full range of motion no calf tenderness no edema brisk capillary refill and easily palpable dorsalis pedis pulse Test Results: Left hip x-ray with pelvis shows bilateral hip arthroplasties no evidence of loosening or hardware failure. Knee x-ray shows intact hardware without evidence of loosening. No fracture. Emergency Department Course and Treatment: Patient is tried Tylenol without relief. She lists an allergy to tramadol. She was given a Washington here which was well-tolerated. Therefore we will write a course for a short course of the same but I advised that she follow-up with orthopedics and her primary care physician. She was discharged. Treatment Plan: [] Disposition: Discharge Impression: Left hip pain Left knee pain This note was generated with [employer] dictation software. It may contain incorrect words, spelling, and punctuation that were not noted in review of the chart prior to signing ED Disposition - Plan for ED Patient: Referrals: Delfin Kamara MD [Primary Care Provider] -
[2018-12-17] MEDS: HYDROcodone Bitartrate/Apap 5/325 Tablet PO (06:44)
--- NOTE | 2018-12-17 07:02 | ED.DEP ---
ED Disposition - Plan for ED Patient: Instructions: KNEE PAIN, Uncertain Cause Prescriptions: Hydrocodone Bitart/Apap 5-325 [Seaview 5MG-325MG] 1 tab PO Q6H PRN PRN 2 Days #8 tab PRN Reason: Pain Prescription Printed Referrals: Delfin Kamara MD [Primary Care Provider] -
== END 2018-12-17 07:22 | disposition home or self-care (01) ==
LOC: ED 06:16
PROVIDERS: Emergency Provider Emergency Medicine; Family Provider Family Medicine; PCP Family Medicine
DX: M25.562 Pain in left knee (principal); M25.552 Pain in left hip; Z96.652 Presence of left artificial knee joint; Z96.643 Presence of artificial hip joint, bilateral; I25.10 Atherosclerotic heart disease of native coronary artery without angina pectoris; I48.91 Unspecified atrial fibrillation; I10 Essential (primary) hypertension; Z86.73 Personal history of transient ischemic attack (TIA), and cerebral infarction without residual deficits; Z79.01 Long term (current) use of anticoagulants; Z79.52 Long term (current) use of systemic steroids; Z79.899 Other long term (current) drug therapy
CPT/HCPCS: 73502; 73564; 99283

== ENCOUNTER → 2019-01-07 15:31 | Outpatient (CLI) | payer MEDICARE, OTHER, SELFPAY ==
[2018-12-17 05:49] VITALS: BMI 25.9
[2019-01-07 14:40] VITALS: BMI 25.1
--- NOTE | 2019-01-07 15:36 | CT_ITS ---
Exam: Noncontrast CT of the left knee. HISTORY: TKR, PAIN IN LT KNEE. WORRISOME FOR FX NEAR THE TKR COMPARISON: Radiograph 12/17/2018 FINDINGS: Images limited by metal artifact. Small fractures are seen of the medial tibial plateau directly under the medial aspect of the tibial prosthesis. There is associated sclerosis suggesting these small fractures are chronic. There is some collapse resulting in varus angulation of the tibial shaft. Cannot exclude additional tiny fractures along the lateral edge of the proximal tibial metaphysis. Normal appearance of the tibial and femoral prostheses. No gross loosening. Normal visualized fibula, femur, and patella. CT/Extremity Lower without Contra IMPRESSION: Probable small chronic fractures of the medial tibial plateau under the tibial prosthesis, possibly chronic. Cannot exclude tiny fractures in the medial tibial plateau. Electronically Signed: Mohan Goldstein MD at 16:12 EDT , Service support ,
== END ==
PROVIDERS: Family Provider Family Medicine; PCP Family Medicine; Referring Provider Physician Assistant Surgical; Visit Provider Physician Assistant Surgical
DX: M25.562 Pain in left knee (principal); M97.12XA Periprosthetic fracture around internal prosthetic left knee joint, initial encounter; X58.XXXA Exposure to other specified factors, initial encounter; Y93.9 Activity, unspecified; Y92.9 Unspecified place or not applicable; Y99.9 Unspecified external cause status
CPT/HCPCS: 73700

== ENCOUNTER → 2020-03-13 10:03 | Outpatient (CLI) | payer MEDICARE, OTHER, SELFPAY ==
[2020-03-05 10:20] VITALS: BMI 26.7
--- NOTE | 2020-03-13 10:03 | ECHOD_ITS ---
Reason For Study: AFib/Flutter Procedure This was a 2D Doppler, Color Flow transthoracic echocardiogram. The exam was of adequate technical quality. Exam performed in department. Left Ventricle Normal LV size. Left ventricular systolic function is normal. The estimated ejection fraction is 65 %. Unable to assess diastolic dysfunction. No regional wall motion abnormalities noted. Right Ventricle Normal RV size. Normal systolic function. Atria The left atrium is severely enlarged. The right atrium is severely enlarged. No doppler evidence for ASD. Mitral Valve There is no mitral annular calcification. Mild diffuse mitral valve thickening. Moderate (2+) mitral valve insufficiency. Tricuspid Valve Normal tricuspid valve. Moderate (2+) tricuspid valve insufficiency. Right ventricular systolic pressure estimated to be 44 mmHg. Aortic Valve Trisinus/trileaflet aortic valve. Normal aortic valve. Pulmonic Valve The pulmonic valve is not well visualized. Mild (1+) pulmonic valve insufficiency. Great Vessels Normal sized aortic root. Pericardium/Pleural No pericardial effusion. MMode/2D Measurements & Calculations LVIDd: 4.2 cm IVSd: 1.1 cm Ao root diam: 3.4 cm LVIDs: 2.4 cm LVPWd: 1.3 cm LA dimension: 4.0 cm RVDd: 3.3 cm FS: 42.3 % LAV(MOD-bp): 85.2 ml LA A4 area: 27.7 cm2 RA A4 area: 25.1 cm2 LAV(MOD-bp) Indexed: 49.8 ml/m2 LAV(MOD-sp2): 75.3 ml LAV(MOD-sp4): 93.2 ml Doppler Measurements & Calculations MV E max gina: 81.2 cm/sec Ao V2 max: 154.1 cm/sec LV V1 max: 109.2 cm/sec Ao max P.5 mmHg LV V1 max P.8 mmHg MR max gina: 446.2 cm/sec PA V2 max: 93.1 cm/sec TR max gina: 300.4 cm/sec MR max P.6 mmHg TR max P.1 mmHg MR mean gina: 362.9 cm/sec MR mean P.5 mmHg MR VTI: 146.2 cm Interpretation Summary Left ventricular systolic function is normal. The estimated ejection fraction is 65 %. The left atrium is severely enlarged. The right atrium is severely enlarged. Mild diffuse mitral valve thickening. Moderate (2+) mitral valve insufficiency. Moderate (2+) tricuspid valve insufficiency. Mild (1+) pulmonic valve insufficiency. Right ventricular systolic pressure estimated to be 44 mmHg. Unable to assess diastolic dysfunction. Ordering Physician: Radames Sharpe Referring Physician: Delfin Kamara Performed By: Lake Gutierrez RCS
== END ==
PROVIDERS: PCP Family Medicine; Referring Provider Internal Medicine Cardiovascular Disease; Visit Provider Internal Medicine Cardiovascular Disease
DX: I48.19 Other persistent atrial fibrillation (principal); I48.92 Unspecified atrial flutter; I36.1 Nonrheumatic tricuspid (valve) insufficiency; I34.0 Nonrheumatic mitral (valve) insufficiency; I10 Essential (primary) hypertension
CPT/HCPCS: 93306

== ENCOUNTER 2020-06-28 15:40 | Observation (INO) | payer MEDICARE, OTHER, SELFPAY ==
[2020-03-05 10:20] VITALS: BMI 26.7
[2020-06-28 15:43] VITALS: BP 154/112; PULSE 84; RESP 16; TEMP 36.8; O2SAT 99; BMI 27.8
--- NOTE | 2020-06-28 15:48 | EKG12_ITS ---
Test Reason : Blood Pressure : / mmHG Vent. Rate : 088 BPM Atrial Rate : 441 BPM P-R Int : 000 ms QRS Dur : 086 ms QT Int : 370 ms P-R-T Axes : 000 045 216 degrees QTc Int : [address] & T wave abnormality, consider inferior ischemia ST & T wave abnormality, consider anterolateral ischemia Abnormal ECG Confirmed by MADAN GALAN, JOHN ([id number]), news editor JASON DAY ([id number]) on 07/02/2020 9:50:37 AM Referred By: KEESHA Confirmed By:JOHN HAGER MD
--- NOTE | 2020-06-28 15:49 | CT_ITS ---
STUDY: CT CERVICAL SPINE WITHOUT CONTRAST REASON FOR EXAM: Female, 84 years old. FELL 1 WEEK AGO. HX OF STROKE RADIATION DOSAGE (If Supplied By Facility): CTDIvol = ( 17.94 ) mGy, DLP = ( 442.45 ) mGycm TECHNIQUE: High resolution transaxial imaging was performed without contrast material. Sagittal and coronal images were reconstructed. Individualized dose optimization techniques were used for this CT. COMPARISON: None FINDINGS: No definite acute fracture/dislocation. The cervical junction is intact. C1-C2 articulation is intact. Curvature is within normal limits. There is 3 mm anterolisthesis of C7 on T1, otherwise grossly normal alignment. Facet joints are intact at all levels bilaterally. No jumped facets. There is multilevel spondyloarthropathy. Multilevel degenerative disc disease seen. Multilevel loss of disc height. Multilevel posterior marginal osteophytes and disc bulges. Multilevel neural foraminal narrowing. Multilevel spinal canal narrowing. Visualized paraspinal soft tissues and structures are unremarkable. CT/Spine Cervical without Contras IMPRESSION: There is no definite acute fracture/dislocation. Degenerative changes. Electronically Signed: Mohan Goldstein MD at 17:01 EST , Service support ,
--- NOTE | 2020-06-28 15:50 | ED.VIS.GEN ---
History of Present Illness Chief Complaint: Lower Extremity Injury Informant: Patient Onset: Days Context: Gradual Onset Timing: Continuous Current Severity: Moderate Maximum Severity: Moderate Narrative: The patient is an 84-year-old female with medical history significant for atrial fibrillation who is on Eliquis, prior TIA, and rheumatoid arthritis who presents to the emergency department with hip and buttock pain after fall. Patient states she fell just before . She states she was in her kitchen, turned, and fell landing on her right side. She thinks she struck her head but did not lose consciousness. She states since then, she is had rather significant pain in her right buttock and hip. She has been unable to bear weight. She states she has basically been wheelchair-bound for the past few days. She states she is having a difficult time getting around and caring for herself. She states otherwise, she has been in her normal state of health. She has been compliant with her medications. She is just been having significant pain and inability to ambulate. Prior similar symptoms: No Recent Illness/Hospitalization: No Past Medical History - Allergies and Home Meds Allergies/Adverse Reactions: Allergies doxycycline Adverse Reaction (Severe, Verified 06/28/20 15:42) GI Upset hydrochlorothiazide Adverse Reaction (Unknown, Verified 06/28/20 15:42) Unknown tramadol HCl [From [facility]] Adverse Reaction (Verified 06/28/20 15:42) Vomiting Primary Care Physician: Delfin Kamara MD [Primary Care Provider] - Prior records reviewed: Yes Past Medical History: - - Atrial fibrillation, hypertension, prior TIA Surgical History: total hip arthroplasty, total knee arthroplasty Smoking Status: Never smoker - Family History Maternal Family History: Family History (Last Reviewed 03/05/20 @ 10:24 by Rossi Lala) Mother Heart disease Hypertension Father Cancer Family History: Reports: - - Lung cancer Paternal Family History: Family History (Last Reviewed 03/05/20 @ 10:24 by Rossi Lala) Mother Heart disease Hypertension Father Cancer Family History: Reports: No pertinent history, - Review of Systems General: Denies: Chills, Fever, Sweats Eyes: Denies: Visual changes - bilaterally, Diplopia ENT: Denies: Rhinorrhea, Sore throat Cardiovascular: Denies: Chest pain, Palpitations Respiratory: Denies: Dyspnea, Cough, Dyspnea on exertion Gastrointestinal: Denies: Abdominal pain, Nausea, Vomiting, Diarrhea, Melena, Hematochezia Genitourinary: Denies: Dysuria, Hematuria, Frequency Musculoskeletal: Denies: Back pain, Extremity Pain Skin: Denies: Rash, Wounds Neurological: Denies: Headache, Weakness, Numbness Physical Exam Vital Signs/Narrative: Vital Signs Temp Pulse Resp BP Pulse Ox 06/28/20 15:43 98.2 F 84 16 154/112 H 99 Inital Vital Signs reviewed: Yes General: Well nourished, Well developed, No Acute Distress Head: Normocephalic, Atraumatic Eyes: Perrl, EOMI ENT: Moist mucous membranes, No rhinorrhea Neck: Supple, Nontender Cardiovascular: Regular rate, Regular rhythm, No murmurs Respiratory: No distress, CTA bilaterally, Chest nontender Abdomen: Soft, Nontender, Nondistended, Normal bowel sounds Back: Nontender, Normal Inspection Extremities: No edema, Tenderness - Tenderness in the area of the pubic rami and in the hip. Normal pulses. Mild pain with logroll. Skin: Normal color, No rash Neurological: Alert, Oriented x3, Cranial nerves II-XII grossly intact, Normal Strength, Normal Sensation Psychological: Normal affect, Normal Mood Diagnostic/Tx/Re-eval Clinical Impression(s) from Imaging Studies Cervical Spine CT 06/28/20 15:49 IMPRESSION: There is no definite acute fracture/dislocation. Degenerative changes. Electronically Signed: Mohan Goldstein MD at 17:01 EST , Service support , Hip/Pelvis X-Ray 06/28/20 16:15 IMPRESSION: No acute fractures or dislocations. No evidence for loosening. Electronically Signed: Mohan Goldstein MD at 16:46 EST , Service support , Brain CT 06/28/20 16:25 IMPRESSION: Chronic involutional changes of the brain. No acute abnormalities are seen. Electronically Signed: Mohan Goldstein MD at 16:58 EST , Service support , Abnormal Lab Results 06/28/20 06/28/20 06/28/20 16:00 16:00 16:54 WBC 6.7 RBC 3.62 L Hgb 11.8 L Hct 35.9 L MCV 99.2 H MCH 32.6 H MCHC 32.9 RDW Std Deviation 58.1 H RDW Coeff of Matt 16.5 H Plt Count 306 MPV 9.6 Immature Gran % (Auto) 0.300 Neut % (Auto) 78.8 H Lymph % (Auto) 14.4 L [place] % (Auto) 4.6 Eos % (Auto) 1.2 Baso % (Auto) 0.7 Absolute Neuts (auto) 5.3 Absolute Lymphs (auto) 0.96 Nucleated RBC % 0 Sodium 140 Potassium 4.5 Chloride 111 H Carbon Dioxide 24.0 Anion Gap 5 BUN 15 Creatinine 0.80 Estim Creat Clear Calc 44.85 Est GFR (MDRD) Af Amer 89 Est GFR (MDRD) Non-Af 73 BUN/Creatinine Ratio 18.8 Glucose 96 Calcium 8.8 Total Bilirubin 0.60 AST 22 ALT 23 Alkaline Phosphatase 85 Total Protein 7.1 Albumin 3.4 Globulin 3.7 Albumin/Globulin Ratio 0.9 Urine Color Straw Urine Clarity Clear Urine pH 7.0 Ur Specific [place] 1.005 Urine Protein Negative Urine Glucose (UA) Normal Urine Ketones Negative Urine Occult Blood 10 H Urine Nitrite Negative Urine Bilirubin Negative Urine Urobilinogen Normal Ur Leukocyte Esterase Negative Urine RBC 0 SEEN Urine WBC 0 SEEN Ur Squamous Epith Cells 0 SEEN Urine Bacteria 0 SEEN Urine Mucus 0 SEEN - Rhythm Strip Rhythm Strip: A-fib Rate: 80 Ectopy: PAC(s) - EKG Initial EKG Interpretation: Atrial Fibrillation, Non-Specific ST Changes Prior: Unchanged - Medical Decision Making The patient presents with inability to ambulate after a fall. She has had bilateral hip replacements. Her sensation is preserved. I did examine her skin and there is no significant contusion or hematoma. Metabolic work-up was pursued. EKG demonstrates atrial fibrillation with deep T wave inversions, unchanged from prior. Noncontrast head CT was negative. Cervical spine CT was also negative. X-rays of the hip and pelvis do not show acute evidence of fracture or loosening of the hardware. Metabolic work-up was also unremarkable. We did attempt to ambulate the patient. She is able to take about 1 or 2 steps with her walker and feels unsteady. Had a long conversation with the patient and her daughter. She does feel that she would be better served with an observation for likely physical therapy evaluation and short-term rehab. She is agreeable with this plan of care. Impression 1. Mechanical fall 2. Right hip pain 3. Gait dysfunction ED Disposition - Plan for ED Patient: Referrals: Delfin Kamara MD [Primary Care Provider] -
[2020-06-28] MEDS: Ondansetron 4 MG/2 ML Vial IV (16:02)
[2020-06-28] MEDS: Morphine 2 MG/ML Syringe IV (16:02)
[2020-06-28 16:13] LABS: Absolute Lymphocyte Count 0.96 X10^3/uL (0.83-4.51); Absolute Neutrophil Count 5.3 X10^3/uL (2.0-7.7); Basophil# 0.05 X10^3/uL; Basophil% 0.7 % (0-1); Eosinophil# 0.08 X10^3/uL; Eosinophils% 1.2 % (0-5); Hematocrit 35.9 % (37-47); Hemoglobin 11.8 g/dL (12.0-15.0); Lymphocyte # 0.96 X10^3/ul (4.0); Lymphocyte % 14.4 % (19-41); Mean Corp Hgb Conc 32.9 g/dL (32-36); Mean Corpuscular Hgb 32.6 pg (27.0-32.0); Mean Corpuscular Volume 99.2 fL (81-99); Mean Platelet Vol. 9.6 fl (6.2-12.0); Monocyte# 0.31 X10^3/uL; Monocyte% 4.6 % (0-10); NRBC Flagged by Analyzer 0 % (0-5); Neutrophil # 5.26 X10^3/uL (2.7-7.7); Neutrophil % 78.8 % (47-70); Platelet Count 306 K/mm3 (150-450); RBC Distribution Width CV 16.5 % (11.6-14.6); RBC Distribution Width SD 58.1 fl (35.1-43.9); Red Blood Count 3.62 M/mm3 (4.2-5.4); White Blood Count 6.7 K/mm3 (4.4-11.0)
--- NOTE | 2020-06-28 16:15 | RAD_ITS ---
STUDY: X-RAY - PELVIS AND RIGHT HIP REASON FOR EXAM: Female, 84 years old. fall one week ago. Rt hip pain. TECHNIQUE: 3 views of the pelvis and hip. COMPARISON: 12/17/2018 FINDINGS: Satisfactory and stable appearance of bilateral hip arthroplasties. No dislocations or fractures are seen. Normal bilateral iliac wings, sacroiliac joints and visualized sacrum. Normal bilateral superior and inferior pubic rami. Normal pubic symphysis. Normal bilateral ischial tuberosities. Prominent vascular calcifications noted. RAD/HIP, UNI W/ Pelvis 2-3 Views IMPRESSION: No acute fractures or dislocations. No evidence for loosening. Electronically Signed: Mohan Goldstein MD at 16:46 EST , Service support ,
--- NOTE | 2020-06-28 16:25 | CT_ITS ---
STUDY: CT BRAIN WITHOUT CONTRAST REASON FOR EXAM: Female, 84 years old. FELL 1 WEEK AGO. HX OF STROKE RADIATION DOSAGE (If Supplied By Facility): CTDIvol = ( 44.99 ) mGy, DLP = ( 779.24 ) mGycm TECHNIQUE: Transaxial CT imaging of the brain was performed without administration of intravenous contrast material. Individualized dose optimization techniques were used for this CT. COMPARISON: MRI 12/24/2017 FINDINGS: Normal soft tissue structures. Normal calvarium. There is mild cerebral atrophy with widening of the extra-axial spaces and ventricular dilatation. Normal white matter tracts of the cerebral hemispheres. There are bilateral lacunar infarcts of the basal ganglia and thalami. Normal brainstem. There is mild cerebellar atrophy. There is no intracranial hemorrhage. There are no findings of an acute ischemic infarction. Normal visualized paranasal sinuses. CT/Brain/Head without Contrast IMPRESSION: Chronic involutional changes of the brain. No acute abnormalities are seen. Electronically Signed: Mohan Goldstein MD at 16:58 EST , Service support ,
[2020-06-28 16:36] LABS: ALB/GLOB Ratio 0.9 RATIO (0.9-2.4); AST(SGOT) 22 U/L (15-37); Alanine Aminotransfer ALT/SGPT 23 U/L (13-56); Albumin, Serum 3.4 g/dL (3.2-5.0); Alkaline Phosphatase 85 U/L (45-117); Anion Gap 5 (5-15); BUN 15 mg/dL (7-18); BUN/Creat Ratio 18.8 RATIO (10-20); Calcium,Total 8.8 mg/dL (8.5-10.1); Chloride 111 mmol/L (98-107); EST Glomerular Filtration Rate 73 mL/min (>60); Est Glom Filt Rate - Afr Amer 89 mL/min (>60); Estimated Creatinine Clearance 44.85 ml/min; Globulin 3.7 g/dL (2.2-4.2); Glucose 96 mg/dL (74-106); Potassium 4.5 mmol/L (3.5-5.1); Protein, Total 7.1 g/dL (6.4-8.2); Sodium Level 140 mmol/L (136-145)
[2020-06-28 17:11] LABS: Bacteria 0 SEEN /hpf (None Seen); Mucous, Urine 0 SEEN /hpf (<or=2+); Red Blood Cells-Urine 0 SEEN /hpf (0-5); Squamous Epithelial Cells - UA 0 SEEN /hpf (5-10); White Blood Cells 0 SEEN /hpf (0-5)
[2020-06-28 17:25] LABS: Color, Urine Straw (Yellow); Glucose, Dipstick Normal (Normal); Ketone-Dipstick Negative (Negative); Leukocyte Esterase-Dipstick Negative /ul (Negative); Nitrite-Dipstick Negative (Negative); Occult Blood-Urine 10 /ul (Negative); Protein-Dipstick Negative (Negative); Specific Gravity, Urine 1.005 (1.002-1.030); Urine Bilirubin Dipstick Negative (Negative); Urine Clarity Clear (Clear); Urine Urobilinogen Normal (Normal)
[2020-06-28 17:59] VITALS: BP 137/90; PULSE 92; RESP 17; TEMP 36.8; O2SAT 100
--- NOTE | 2020-06-28 18:29 | HP.PCM_ITS ---
Problem List (1) Failure to thrive Status: Acute Qualifiers: Failure to thrive age range: in adult Qualified Code(s): R62.7 - Adult failure to thrive (2) Essential hypertension Status: Chronic (3) Non-rheumatic tricuspid valve insufficiency Status: Chronic (4) Rheumatoid arthritis Status: Chronic (5) Stroke Status: Acute Qualifiers: CVA mechanism: embolism Precerebral and cerebral artery: middle cerebral artery Laterality of affected vessel: right Qualified Code(s): I63.411 - Cerebral infarction due to embolism of right middle cerebral artery (6) Nonrheumatic mitral valve regurgitation Status: Chronic (7) Persistent atrial fibrillation Status: Chronic History of Present Illness Date of Admission: 06/28/20 Chief Complaint: weakness The patient is a 84 year old F who on June 19 was going to refrigerator turned and then fell. Landed on her right side. Patient was having pain afterwards and had difficulty walking around so she used her 's wheelchair and has not really gotten up much on her own. Family was concerned and brought her into the hospital for evaluation. Patient unsure if she hit her head with that fall or not. In the emergency room, patient had a head CT, hip and pelvic x-ray, cervical spine CT that were unremarkable. Patient still with difficulty getting up. Patient was wishing to go home but given her debility eventually agreed to being observed overnight and evaluated. Patient stated prior to this fall she falls very infrequently and cannot recall the last time she had fallen but stated that it was a long time ago. [] Past Medical History Past Medical History (Chronic Problems): Chronic Problems (Last Reviewed 03/05/20 @ 10:24 by Rossi Lala) Essential hypertension (Chronic) Non-rheumatic tricuspid valve insufficiency (Chronic) Rheumatoid arthritis (Chronic) Nonrheumatic mitral valve regurgitation (Chronic) Persistent atrial fibrillation (Chronic) Medical History: Medical History (Last Reviewed 06/28/20 @ 18:[address] Ziggy Giles, DO) Essential hypertension (Chronic) I10 Nonrheumatic mitral valve regurgitation (Chronic) I34.0 Persistent atrial fibrillation (Chronic) I48.1 Anemia D64.9 Nonrheumatic mitral (valve) stenosis I34.2 No documented in Echo done on 10/09/14 Osteopenia M85.80 Rheumatoid arthritis M06.9 Squamous cell carcinoma of skin C44.92 Viral myocarditis B33.22 CAP (community acquired pneumonia) (Inactive) J18.9 Cardiac dysrhythmia (Inactive) I49.9 Chronic a-fib (Inactive) I48.2 Lower extremity pain, left (Inactive) M79.605 Nausea and vomiting (Inactive) R11.2 Rheumatoid arthritis (Inactive) M06.9 Sepsis associated hypotension (Inactive) A41.9 Allergies doxycycline Adverse Reaction (Severe, Verified 06/28/20 15:42) GI Upset hydrochlorothiazide Adverse Reaction (Unknown, Verified 06/28/20 15:42) Unknown tramadol HCl [From [employer]] Adverse Reaction (Verified 06/28/20 15:42) Vomiting Home Medications: Ambulatory Orders Medication Instructions Recorded Metoprolol(XL)Succ [Toprol Xl 100 mg PO DAILY 05/03/13 (Beta Anne)] alendronate 70 mg tablet 70 mg PO FR 07/10/17 leucovorin calcium 5 mg tablet 5 mg PO MO tab 07/13/17 ramipril 10 mg capsule 20 mg PO DAILY cap 07/13/17 cholecalciferol (vitamin D3) 25 25 mcg PO DAILY 03/05/20 mcg (1,000 unit) tablet methotrexate sodium 2.5 mg tablet 20 mg PO ARAUJO tab 03/05/20 Acetaminophen [Tylenol Arthritis] 650 mg PO DAILY PRN 06/28/20 Apixaban [Eliquis] 5 mg PO BID 06/28/20 Atorvastatin Calcium [Lipitor] 40 mg PO QHS 06/28/20 Diltiazem CD [Cardizem CD] 240 mg PO DAILY 06/28/20 Prednisone 5 mg PO DAILY 06/28/20 Surgical History: Surgical History (Last Reviewed 06/28/20 @ 18:[address] Ziggy Giles DO) History of breast biopsy Z98.890 Rt History of carpal tunnel release of both wrists Z98.890 History of hip replacement, total Z96.649 Rt/Lt History of knee replacement Z96.659 Lt Surgical History: total hip arthroplasty, total knee arthroplasty Psychiatric History: No pertinent psych hx [employer] History: No pertinent [employer]ER history Smoking Status: Never smoker - *Family History Maternal Family History: Family History (Last Reviewed 06/28/20 @ 18:[address] Ziggy Giles DO) Mother Heart disease Hypertension Father Cancer History Items: - - Lung cancer Paternal Family History: Family History (Last Reviewed 06/28/20 @ 18:[address] Ziggy Giles, DO) Mother Heart disease Hypertension Father Cancer History Items: No pertinent history, - Review of Systems Constitutional: Denies: Anorexia, Fever, Night Sweats Eyes: Denies: Blurred vision, Double vision HEENT: Denies: Head Aches, Sinus Congestion, Sinus Drainage Cardiovascular: Denies: Chest Pain, Palpitations Respiratory: Denies: Cough, Shortness of breath at rest, Sputum production Gastrointestinal: Denies: Abdominal Pain, Nausea, Vomiting Genitourinary: Denies: Dysuria Musculoskeletal: Reports: - - Right hip pain post fall Hematologic/ Lymphatic: Reports: Easy Bruising - While on apixaban. Denies: Hx of blood clot Comment: All review of systems were negative except as mentioned above in the history of present illness and the other review of systems. VTE Information - Inpt Only VTE Present on Admission: No VTE Mechan Device Prophylaxis: None VTE Pharm Prophylaxis ordered?: No Reason prophylaxis not ordered:: Treatment Not Indicated - Physical Exam Vitals/I&O's: Vital Signs Temp Pulse Resp BP Pulse Ox 36.8 C 92 17 137/90 H 100 06/28/20 17:59 06/28/20 17:59 06/28/20 17:59 06/28/20 17:59 06/28/20 17:59 Oxygen Delivery Method Room Air Weight: 71.3 kg Body Mass Index (BMI) 27.8 Finger Stick Blood Glucose 126 General: Alert, Cooperative, No apparent distress HEENT: Atraumatic, Normocephalic Oral: Moist Mucosa, No Gingival or Mucosal Lesions/ Ulcerations Neck: No Nodes, Thyroid Normal Size and Texture Lungs: Clear to auscultation, Normal air movement, No rhonchi, No wheeze, No rales Cardiovascular: Regular rate, Regular Rhythm, Normal S1, Normal S2, No murmurs Abdomen: Bowel Sounds Present, Soft, Non Tender, Non-Distended, No Hepato- splenomegaly Extremities: No edema, No Calf Tenderness, - - Patient had some right hip pain with palpation. Did have a full range of motion with passive activity. Was able to externally rotate her right leg without difficultyreproducible pain Skin: - - Patient has some minor skin contusions on her upper extremities. No evidence of any bruising on her right buttocks. Musculoskeletal: - - Ulnar deviation of digits on her hands. Psych/Mental Status: Normal Affect, Appropriate Laboratory Results 06/28/20 16:00: WBC 6.7, RBC 3.62 L, Hgb 11.8 L, Hct 35.9 L, MCV 99.2 H, MCH 32.6 H, MCHC 32.9, RDW Std Deviation 58.1 H, RDW Coeff of Matt 16.5 H, Plt Count 306, MPV 9.6, Immature Gran % (Auto) 0.300, Neut % (Auto) 78.8 H, Lymph % (Auto) 14.4 L, [place] % (Auto) 4.6, Eos % (Auto) 1.2, Baso % (Auto) 0.7, Absolute Neuts (auto) 5.3, Absolute Lymphs (auto) 0.96, Nucleated RBC % 0 06/28/20 16:00: Sodium 140, Potassium 4.5, Chloride 111 H, Carbon Dioxide 24.0, Anion Gap 5, BUN 15, Creatinine 0.80, Estim Creat Clear Calc 44.85, Est GFR (MDRD) Af Amer 89, Est GFR (MDRD) Non-Af 73, BUN/Creatinine Ratio 18.8, Glucose 96, Calcium 8.8, Total Bilirubin 0.60, AST 22, ALT 23, Alkaline Phosphatase 85, Total Protein 7.1, Albumin 3.4, Globulin 3.7, Albumin/Globulin Ratio 0.9 06/28/20 16:54: Urine Color Straw, Urine Clarity Clear, Urine pH 7.0, Ur Specific [place] 1.005, Urine Protein Negative, Urine Glucose (UA) Normal, Urine Ketones Negative, Urine Occult Blood 10 H, Urine Nitrite Negative, Urine Bilirubin Negative, Urine Urobilinogen Normal, Ur Leukocyte Esterase Negative, Urine RBC 0 SEEN, Urine WBC 0 SEEN, Ur Squamous Epith Cells 0 SEEN, Urine Bacteria 0 SEEN, Urine Mucus 0 SEEN Clinical Impression(s) from Imaging Studies Cervical Spine CT 06/28/20 15:49 IMPRESSION: There is no definite acute fracture/dislocation. Degenerative changes. Electronically Signed: Mohan Goldstein MD at 17:01 EST , Service support , Hip/Pelvis X-Ray 06/28/20 16:15 IMPRESSION: No acute fractures or dislocations. No evidence for loosening. Electronically Signed: Mohan Goldstein MD at 16:46 EST , Service support , Brain CT 06/28/20 16:25 IMPRESSION: Chronic involutional changes of the brain. No acute abnormalities are seen. Electronically Signed: Mohan Goldstein MD at 16:58 EST , Service support , Assessment/Plan All Active Problems (Last Reviewed 03/05/20 @ 10:24 by Rossi Lala) Failure to thrive (Acute) Stroke (Acute) 1. Failure to thrive/debility: Status post fall and right hip contusion. Patient has been essentially wheelchair-bound over the past week which is complicated matters. Discussed with the patient about the possibility of a [facility] facility. Informed her that we would have physical therapy evaluate her and based on their recommendations case management would determine if she would be a fpc facility candidate or not. Patient would be agreeable to a fpc facility if it were deemed necessary. 2. Atrial fibrillation: Rate controlled. Continue with apixaban and metoprolol succinate and diltiazem 3. Rheumatoid arthritis: Patient on prednisone, methotrexate and leucovorin. Continue the prednisone. Patient due to get her methotrexate on Sundays and leucovorin on Mondays. If patient is going to stay that long then would recommend starting those medications. 4. VTE prophylaxis: Not indicated as patient is observation status and already on anticoagulation.
[2020-06-28 19:38] VITALS: BMI 26.1; BMI 27.8
[2020-06-28 19:55] VITALS: BP 152/75; PULSE 86; RESP 18; TEMP 36.7; O2SAT 97
[2020-06-28] MEDS: APIXABAN 5 MG TABLET PO (22:11)
[2020-06-28] MEDS: Atorvastatin Calcium 40 MG Tablet PO (22:11)
--- NOTE | 2020-06-28 23:51 | PCS.PANDOC ---
PANDEMIC DOCUMENTATION INITIATED: Date: 06/28/20 Time: 1929
[2020-06-29 02:45] VITALS: BP 125/60; PULSE 69; RESP 18; TEMP 36.9; O2SAT 96
[2020-06-29] MEDS: Alendronate Sodium 70 MG Tablet PO (06:31)
[2020-06-29 08:17] VITALS: BP 118/75; PULSE 55; RESP 18; TEMP 36.4; O2SAT 98
[2020-06-29] MEDS: APIXABAN 5 MG TABLET PO (08:31)
[2020-06-29] MEDS: predniSONE 5 MG Tablet PO (08:32)
[2020-06-29] MEDS: Ramipril 10 MG Capsule 20 MG PO (08:33)
--- NOTE | 2020-06-29 09:55 | CT_ITS ---
STUDY: CT PELVIS WITHOUT CONTRAST REASON FOR EXAM: Female, 84 years old. RT HIP PAIN, RECENT FALL RADIATION DOSAGE (If Supplied By Facility): CTDIvol = ( 18.49 ) mGy, DLP = ( 771.06 ) mGycm TECHNIQUE: Transaxial imaging of the pelvis was performed with oral contrast, and without intravenous administration of contrast material. Individualized dose optimization techniques were used for this CT. COMPARISON: None. FINDINGS: The patient is status post bilateral hip replacement. No acute fracture or dislocation is seen. Normal urinary bladder. Normal visualized small intestine. There are multiple colonic diverticula of the sigmoid colon consistent with chronic diverticulosis. There is no pelvic fluid. There is no pelvic mass lesion or lymphadenopathy. There is diffuse atherosclerotic calcification of the pelvic arteries. Normal abdominal wall. There are diffuse degenerative changes of the visualized lumbar spine. CT/Pelvis without IV Contrast IMPRESSION: Status post bilateral total hip replacement. No evidence of fracture or dislocation. Electronically Signed: Joseph Eagle, at 10:50 EST , Service support ,
--- NOTE | 2020-06-29 12:11 | DCINST_ITS ---
- Discharge Diagnoses Current Active Problems: Current Active and Chronic Problems (Last Reviewed 06/28/20 @ 18:[address] Ziggy Giles, DO) Failure to thrive (Acute) Essential hypertension (Chronic) Non-rheumatic tricuspid valve insufficiency (Chronic) Rheumatoid arthritis (Chronic) Stroke (Acute) Nonrheumatic mitral valve regurgitation (Chronic) Persistent atrial fibrillation (Chronic) You will use the following diet at home:: No restrictions Your food should be the consistency of: Regular Your liquids should be the consistency of: Regular/Thin Discharge Activity: Return to Normal Activity, Use Walker Weight Bearing Status: Weight bearing as tolerated Additional Instructions: After finishing your short course of 10 mg prednisone, resume prednisone 5 mg daily Allergies/Adverse Reactions: Allergies doxycycline Adverse Reaction (Severe, Verified 06/28/20 15:42) GI Upset hydrochlorothiazide Adverse Reaction (Unknown, Verified 06/28/20 15:42) Unknown tramadol HCl [From [facility]] Adverse Reaction (Verified 06/28/20 15:42) Vomiting Medications to take at Discharge Metoprolol(XL)Succ [Toprol Xl (Beta Anne)] 100 mg PO DAILY 05/03/13 alendronate 70 mg tablet 70 mg PO FR 07/10/17 leucovorin calcium 5 mg tablet 5 mg PO MO tab 07/13/17 ramipril 10 mg capsule 20 mg PO DAILY cap 07/13/17 cholecalciferol (vitamin D3) 25 mcg (1,000 unit) tablet 25 mcg PO DAILY 03/05/20 methotrexate sodium 2.5 mg tablet 20 mg PO ARAUJO tab 03/05/20 Acetaminophen [Tylenol Arthritis] 650 mg PO DAILY PRN 06/28/20 Apixaban [Eliquis] 5 mg PO BID 06/28/20 Atorvastatin Calcium [Lipitor] 40 mg PO QHS 06/28/20 Diltiazem CD [Cardizem CD] 240 mg PO DAILY 06/28/20 Prednisone 10 mg PO UD #30 tab 06/29/20 The following prescriptions were given: Prednisone 10 mg PO UD #30 tab Transmission Status: Pending to [facility] Primary Care Physician: Delfin Kamara MD [Primary Care Provider] - Test Results: Test results from this visit will be discussed in further detail at your follow- up appointment, if applicable.
[2020-06-29 12:43] VITALS: BP 112/65; PULSE 62; RESP 16; TEMP 36.6; O2SAT 95
[2020-06-29 12:48] VITALS: PULSE 62
[2020-06-29] MEDS: dilTIAZem CD 240 MG Capsule PO (12:48)
[2020-06-29] MEDS: Metoprolol(XL)Succ 100 MG Tablet PO (12:48)
--- NOTE | 2020-06-29 13:25 | CM.UR ---
Addendum entered by Lewis Han 06/29/20 13:42: Call received from Laurence @ [facility]. They can accept patient for [facility] and start of care will be 07/03/20 Original Note: RN CM Assessment Intro role of CM to patient in room. Patient is dressed, sitting in chair and able to participate in assessment. Pt states she was having difficulty with ambulation after fall. She now states she is feeling better, but still has pain with ambulation. She stated she feels she can return home. Has son and who live with her and can assist. She has walker to use. Discussed HHC and patient is agreeable. List given with ratings and CpB. Reviewed with patient who would like to use [facility]. Call to Laurence, message left requesting review of referral. Patient's son and his are picking patient up to take her home. Diagnosis: Failure to thrive PCP: Dr. Kamara Specialists: Insurance: [facility] Pharmacy: [facility] benefit: yes LNOK: Son Mikhail Teixeira Living Arrangements: Lives in one story home with spouse and son. Pt has been minimally ambulatory since 06/19/20 when she fell. DME: wheeled walker, wheelchair, bedside commode. Per OT notes, pt was contact guard and minimal assist with activities. Per PT, pt had pain with ambulation, contact guard assist of 1 and ambulated 50'. HHS: Referral to [facility]. Patient DC Goal: Home DC Goal: Home with C. Cindi SIMON CM
--- NOTE | 2020-07-01 11:04 | PCM.DC.SUM ---
Discharge Date and Diagnosis - Problem List Patient Problems: Active and Suspected Problems (Last Reviewed 06/28/20 @ 18:[address] Ziggy Giles DO) Failure to thrive (Acute) Stroke (Acute) Date of Admission: 06/28/20 Date of Discharge: 06/29/20 - Primary Discharge Diagnosis Acute Problems: Active Problems (Last Reviewed 06/28/20 @ 18:[address] Ziggy Giles DO) #1 generalized weakness-secondary to rheumatoid arthritis and age #2 chronic atrial fibrillation #3 rheumatoid arthritis - Secondary Discharge Diagnosis Chronic Problems: Chronic Problems (Last Reviewed 06/28/20 @ 18:[address] Ziggy Giles DO) Essential hypertension (Chronic) Non-rheumatic tricuspid valve insufficiency (Chronic) Rheumatoid arthritis (Chronic) Nonrheumatic mitral valve regurgitation (Chronic) Persistent atrial fibrillation (Chronic) Hospital Course and Treatment Operations: None Procedures: None Summary of Care Provided: The patient is a 84 year old F who was seen in the emergency room at [facility] due to complaints of right hip pain and inability to ambulate after sustaining a fall several days earlier at her home. Patient had a history of rheumatoid arthritis. Work-up in the emergency room included a head CT which was unremarkable, cervical spine CT which was unremarkable for acute process, x-rays of the hip and pelvis did not show an acute fracture or loosening of her hardware in her bilateral hip replacements. Patient was unable to ambulate well in the emergency room felt unsteady, she was placed into observation status on MedSurg 3 and was seen by PT and OT, this examiner performed a CT of her pelvis and hips which did not show any evidence of pelvic or hip fracture. Patient improved during her hospital stay. On 06/29/2020, patient was seen and examined: On examination she appeared in good health and spirits, she does not appear to be in any distress. Vital signs as documented. Skin warm and dry and without overt rashes. Neck without JVD, thyroid appears normal, trachea is midline, neck is supple. Lungs clear, normal air movement was noted. Heart exam notable for irregular rhythm, normal sounds and absence of murmurs, rubs or gallops. Abdomen unremarkable and without evidence of organomegaly, masses, or abdominal aortic enlargement, bowel sounds are present in all 4 quadrants, no abdominal tenderness was noted. Extremities nonedematous, no cyanosis was noted, no clubbing was noted. Neuro: Cranial nerves II through XII are grossly intact, no focal motor deficits were noted, sensation to light touch and pinprick is intact, motor exam 5/5 throughout. Psych: Patient is alert and oriented x3, she does not appear anxious or depressed, she does not appear agitated. Patient appears stable for discharge home on 06/29/2020, she was placed on a short course of prednisone as an outpatient to see if this would help her mobility. Patient Problems: Active and Suspected Problems (Last Reviewed 06/28/20 @ 18:[address] Ziggy Giles, DO) Failure to thrive (Acute) Stroke (Acute) - Physical Exam Vitals/I&O's: Vital Signs Temp Pulse Resp BP Pulse Ox 97.8 F 62 16 112/65 95 06/29/20 12:43 06/29/20 12:48 06/29/20 12:43 06/29/20 12:43 06/29/20 12:43 Oxygen Delivery Method Room Air Weight: 66.8 kg Body Mass Index (BMI) 26.1 Finger Stick Blood Glucose 126 Intake and Output for Last 24 Hours 06/29/20 06/30/20 07/01/20 23:59 23:59 23:59 Intake Total 480 / 480 Output Total 25 / Balance 455 / 455 Discharge Activity: Return to Normal Activity, Use Walker Weight Bearing Status: Weight bearing as tolerated Home Medications: Medications to take at Discharge Metoprolol(XL)Succ [Toprol Xl (Beta Anne)] 100 mg PO DAILY 05/03/13 alendronate 70 mg tablet 70 mg PO FR 07/10/17 leucovorin calcium 5 mg tablet 5 mg PO MO tab 07/13/17 ramipril 10 mg capsule 20 mg PO DAILY cap 07/13/17 cholecalciferol (vitamin D3) 25 mcg (1,000 unit) tablet 25 mcg PO DAILY 03/05/20 methotrexate sodium 2.5 mg tablet 20 mg PO ARAUJO tab 03/05/20 Acetaminophen [Tylenol Arthritis] 650 mg PO DAILY PRN 06/28/20 Apixaban [Eliquis] 5 mg PO BID 06/28/20 Atorvastatin Calcium [Lipitor] 40 mg PO QHS 06/28/20 Diltiazem CD [Cardizem CD] 240 mg PO DAILY 06/28/20 Prednisone 10 mg PO UD #30 tab 06/29/20 Following Prescriptions Were Given to Patient: Prednisone 10 mg PO UD #30 tab Transmission Status: Received by [facility] Primary Care Physician: Delfin Kamara MD [Primary Care Provider] - Disposition: Home with Home Health Minutes spent on discharge:: 31 Patient Condition:: Stable Medical Necessity - Tobacco Use Smoking Status: Never smoker Meaningful Use Info Meaningful Use Diagnoses (Choose all that apply): None applicable OBSV E&M: 11232 Observation care discharge
== END 2020-06-29 15:05 | disposition home health service (06) ==
LOC: ED 16:12 → MS3 18:37
PROVIDERS: Emergency Provider Emergency Medicine; PCP Family Medicine; Visit Provider Internal Medicine
DX: M06.9 Rheumatoid arthritis, unspecified (principal); I48.20 Chronic atrial fibrillation, unspecified; R53.1 Weakness; I10 Essential (primary) hypertension; S70.01XA Contusion of right hip, initial encounter; W19.XXXA Unspecified fall, initial encounter; Y93.9 Activity, unspecified; Y92.000 Kitchen of unspecified non-institutional (private) residence as the place of occurrence of the external cause; R26.9 Unspecified abnormalities of gait and mobility; R62.7 Adult failure to thrive; Z79.52 Long term (current) use of systemic steroids; Z79.01 Long term (current) use of anticoagulants; Z79.899 Other long term (current) drug therapy; Z86.73 Personal history of transient ischemic attack (TIA), and cerebral infarction without residual deficits; Z99.3 Dependence on wheelchair; Z91.81 History of falling
CPT/HCPCS: 70450; 72125; 72192; 73502; 80053; 81001; 85025; 93005; 96374; 96375; 97162; 97166; 99218; 99285; J7030; P9612; G0378; J2405

== ENCOUNTER 2020-07-27 14:36 | Outpatient (RCR) | payer MEDICARE, OTHER, SELFPAY ==
[2020-06-28 19:38] VITALS: BMI 26.1
== END 2020-07-27 23:59 ==
LOC: IMMUN 14:36
PROVIDERS: PCP Family Medicine; Referring Provider Family Medicine; Visit Provider Family Medicine
DX: Z23 Encounter for immunization (principal)
CPT/HCPCS: 0011A; 0012A

== ENCOUNTER 2021-02-14 11:23 | Observation (INO) | payer MEDICARE, OTHER, SELFPAY ==
[2021-02-14] VITALS (12 sets, daily range): BP systolic 77–148; BP diastolic 52–83; PULSE 84–127; RESP 15–24; TEMP 36.6–36.8; O2SAT 97–100; BMI 26.6; BMI 24.3
--- NOTE | 2021-02-14 12:09 | EKG12_ITS ---
Test Reason : SYNCOPE Blood Pressure : / mmHG Vent. Rate : 100 BPM Atrial Rate : 115 BPM P-R Int : 000 ms QRS Dur : 096 ms QT Int : 426 ms P-R-T Axes : 000 060 263 degrees QTc Int : [address] & T wave abnormality, consider inferior ischemia ST & T wave abnormality, consider anterolateral ischemia Prolonged QT Abnormal ECG Confirmed by MADAN GALAN, JOHN ([id number]), inspector floor JASON DAY ([id number]) on 02/18/2021 10:26:45 AM Referred By: PRAKASH Confirmed By:JOHN HAGER MD
--- NOTE | 2021-02-14 12:09 | RAD_ITS ---
STUDY: X-RAY CHEST REASON FOR EXAM: Female, 85 years old. Cough. TECHNIQUE: Single AP portable view of the chest. COMPARISON: Comparison is made with prior examination dated 12/23/2017. FINDINGS: EKG electrodes are seen. There is evidence of a left lower lobe infiltrate. Findings suggestive of early right lower lobe infiltrate as well. There is no demonstrated pleural abnormality. Normal size heart. Normal mediastinum and allyson. Normal visualized pulmonary arteries. There is atherosclerotic calcification of the aortic arch with tortuosity. Normal visualized thoracic spine. There is degenerative osteoarthritis of the bilateral shoulders. There is no demonstrated abnormality of the visualized soft tissue structures of the upper abdomen. RAD/Chest 1 View (Portable) IMPRESSION: Left lower lung infiltrate. Focal infiltrate in the right lower lobe. Electronically Signed: Joseph Eagle MD at 13:24 EDT , Service support ,
--- NOTE | 2021-02-14 12:11 | EDS_ITS ---
HPI History of Present Illness Chief Complaint: Syncope Informant: patient Narrative Narrative: Sent by EMS from urgent care for evaluation of syncopal episode occurring at their facility. Patient reports near syncopal symptoms for the past month primarily in the mornings. She states is intermittent. She states she sitting and she feels the symptoms puts a cold towel and lays down his symptoms go away. Denies chest pain shortness of breath. She states recent nonproductive cough. No recent vomiting or diarrhea. Decreased appetite and decreased oral intake. Denies urinary symptoms. She does have history of chronic A. fib on Eliquis along with metoprolol and Cardizem. She is followed by Dr. Sharpe. She reported on history that she is never passed out however urgent care called in reporting it happened while she went to the restroom. Denies headache neck pain chest back abdominal pain. She does ambulate with a walker. Prior similar symptoms: Yes PFSH COUNTS INCLUDE 234 BEDS AT THE [facility] Medical History (Updated 02/14/21 @ 18:[address] Polo Stephenson DO) Anemia CAP (community acquired pneumonia) Cardiac dysrhythmia Chronic a-fib Essential hypertension Failure to thrive Lower extremity pain, left Nausea and vomiting Non-rheumatic tricuspid valve insufficiency Nonrheumatic mitral (valve) stenosis Nonrheumatic mitral valve regurgitation Osteopenia Persistent atrial fibrillation Rheumatoid arthritis Rheumatoid arthritis Rheumatoid arthritis Sepsis associated hypotension Squamous cell carcinoma of skin Stroke Viral myocarditis Home Medications metoprolol succinate 100 mg PO DAILY 05/03/13 [History Last Taken 02/13/21] alendronate 70 mg tablet 70 mg PO FR 07/10/17 [History Last Taken 02/08/21] leucovorin calcium 5 mg tablet 5 mg PO MO tab 07/13/17 [History Last Taken 02/11/21] ramipril 10 mg capsule 20 mg PO DAILY cap 07/13/17 [History Last Taken 02/14/21] cholecalciferol (vitamin D3) 25 mcg (1,000 unit) tablet 25 mcg PO DAILY 03/05/20 [History Last Taken 02/13/21] methotrexate sodium 2.5 mg tablet 20 mg PO ARAUJO tab 03/05/20 [History Last Taken 02/10/21] apixaban 5 mg PO BID 06/28/20 [History Last Taken 02/14/21] atorvastatin 40 mg PO QHS 06/28/20 [History Last Taken 02/13/21] diltiazem HCl 240 mg PO DAILY 06/28/20 [History Last Taken 02/13/21] prednisone 5 mg tablet 5 mg PO DAILY tab 08/30/20 [History Last Taken 02/13/21] Allergy/AdvReac Type Severity Reaction Status Date / Time doxycycline AdvReac Severe GI Upset Verified 02/14/21 11:23 hydrochlorothiazide AdvReac Unknown Unknown Verified 02/14/21 11:23 tramadol HCl [From Ultram] AdvReac Vomiting Verified 02/14/21 11:23 Family History Mother Heart disease Hypertension Father Cancer lung Surgical History History of breast biopsy History of carpal tunnel release of both wrists History of hip replacement, total History of knee replacement Social History Smoking Status: Never smoker alcohol intake: never substance use type: does not use caffeine: Yes Type: tea Number of servings: 3 ROS ROS ED Constitutional Constitutional ED: Denies chills, fever(s) or sweats Eyes Eyes: Denies change in vision ENT ENT ED: Denies dysphagia or sore throat Cardiovascular Cardiovascular: Denies chest pain, leg edema, palpitations or racing heartbeat Respiratory/Chest Respiratory/Chest: Reports cough; Denies dyspnea or dyspnea on exertion Gastrointestinal Gastrointestinal: Denies abdominal pain, diarrhea, nausea or vomiting Genitourinary Genitourinary ED: Denies dysuria, hematuria or urinary frequency Musculoskeletal Musculoskeletal: Denies back pain, extremity pain or neck pain Integumentary Denies rash or wounds Neurologic Neurologic: Denies headache(s), paresthesias or weakness EXAM Physical Exam Const Vital Signs: 02/14/21 11:24 02/14/21 11:30 02/14/21 13:52 Temperature 98.0 F 98 F Temperature Source Temporal Temporal Pulse Rate 97 84 87 Respiratory Rate 15 18 19 H Blood Pressure 77/52 L 111/61 114/72 Blood Pressure Mean 60 77 86 Pulse Ox 97 98 99 Oxygen Delivery Method Room Air Room Air 02/14/21 13:56 02/14/21 14:15 02/14/21 15:06 Temperature 98.1 F 98.2 F 98.2 F Temperature Source Oral Oral Oral Pulse Rate 84 88 86 Respiratory Rate 24 H 23 H 24 H Blood Pressure 114/72 111/65 128/75 H Blood Pressure Mean 86 80 92 Pulse Ox 99 99 100 Oxygen Delivery Method Room Air Room Air Room Air Positive well nourished and well developed General Appearance ED: well developed and NAD HEENT Reports dry mucous membranes normocephalic and atraumatic Mouth ED: Yes dry mucous membranes Mouth: dry mucous membranes Eyes PERRL, EOMs intact bilaterally and conjunctivae normal General Eye ED: Yes normal appearance of both eyes Neck no lymphadenopathy and supple General: Negative for tenderness Chest Wall Chest: Negative for tenderness Resp normal respiratory effort and normal air movement Effort and Inspection: symmetric chest movement; Negative for respiratory distress Cardio regular rate and no murmurs Rate: other Other Details: Irregular rhythm Peripheral Pulses: pulses 2+ throughout GI normal to inspection, nondistended, normoactive bowel sounds and non-tender Palpation: Negative for guarding or rebound tenderness present Back/Spine no CVA tenderness and no thoracic nor lumbar tenderness Extremity normal to inspection General Extremety ED: Negative for edema or tenderness General Extremity: Negative for edema Neuro oriented x3 and no sensory deficits noted Sensorium / Orientation: awake and alert Skin no rashes or lesions noted and no wounds MDM MDM MDM Narrative Medical decision making narrative: Patient EKG nonspecific ST depressions anterior lateral leads new from previous. She denies any chest pains. Troponin negative. She had hypotension on arrival, this is improved with fluids. Covid negative labs are stable. Chest x-ray did note left lower lobe infiltrate. Also reported focal infiltrate right lower lobe. She does report a cough. White count normal no respiratory distress. With her syncopal episode with EKG changes I do feel she will benefit from observations. I discussed with Dr. Hyde for admission. She was covered with Rocephin and Zithromax for her pneumonia findings. Lab Data Attestation: I reviewed the patient's lab results. Labs: Laboratory Results - last 24 hr 02/14/21 02/14/21 12:30 12:30 WBC 10.6 RBC 3.75 L Hgb 11.5 L Hct 35.4 L MCV 94.4 MCH 30.7 MCHC 32.5 RDW Std Deviation 53.4 H RDW Coeff of Matt 15.6 H Plt Count 324 MPV 9.3 Immature Gran % (Auto) 0.700 Neut % (Auto) 66.1 Lymph % (Auto) 15.6 L White % (Auto) 14.5 H Eos % (Auto) 2.3 Baso % (Auto) 0.8 Absolute Neuts (auto) 7.0 Absolute Lymphs (auto) 1.65 Nucleated RBC % 0 Differential Comment SCANNED Reactive Lymphocytes 1+ Sodium 138 Potassium 3.6 Chloride 106 Carbon Dioxide 26.0 Anion Gap 6 BUN 24 H Creatinine 0.77 Estim Creat Clear Calc 35.26 Est GFR (MDRD) Af Amer 92 Est GFR (MDRD) Non-Af 76 BUN/Creatinine Ratio 31.2 H Glucose 106 Calcium 9.0 Troponin I High Sens 25 Radiography Diagnostic Testing: Radiology Impression Chest X-Ray 02/14/21 12:09 IMPRESSION: Left lower lung infiltrate. Focal infiltrate in the right lower lobe. Electronically Signed: Joseph Eagle MD at 13:24 EDT , Service support , EKG Initial EKG: Attestation: I personally reviewed and interpreted this EKG as follows: Comments: Rate controlled atrial fibrillation at 100, no ST changes, there is slight ST depressions anterior lateral leads. T wave inversions in inferior leads. Discharge Plan Dx/Rx/DC Orders Clinical Impression: Syncope, Community acquired pneumonia Disposition Disposition: Acute Care Hospital [facility] Discharge Date/Time: 02/14/21 16:39
[2021-02-14 12:39] LABS: Absolute Lymphocyte Count 1.65 X10^3/uL (0.83-4.51); Basophil# 0.08 X10^3/uL; Basophil% 0.8 % (0-1); Eosinophil# 0.24 X10^3/uL; Eosinophils% 2.3 % (0-5); Hematocrit 35.4 % (37-47); Hemoglobin 11.5 g/dL (12.0-15.0); Lymphocyte # 1.65 X10^3/ul (0.83-4.51); Lymphocyte % 15.6 % (19-41); Mean Corp Hgb Conc 32.5 g/dL (32-36); Mean Corpuscular Hgb 30.7 pg (27.0-32.0); Mean Corpuscular Volume 94.4 fL (81-99); Mean Platelet Vol. 9.3 fl (6.2-12.0); Monocyte# 1.53 X10^3/uL; Monocyte% 14.5 % (0-10); NRBC Flagged by Analyzer 0 % (0-5); Neutrophil # 6.98 X10^3/uL (2.7-7.7); Neutrophil % 66.1 % (47-70); POSITIVE DIFFERENTIAL YES; POSITIVE MORPHOLOGY YES; Platelet Count 324 K/mm3 (150-450); RBC Distribution Width CV 15.6 % (11.6-14.6); RBC Distribution Width SD 53.4 fl (35.1-43.9); Red Blood Count 3.75 M/mm3 (4.2-5.4); White Blood Count 10.6 K/mm3 (4.4-11.0)
[2021-02-14 12:40] LABS: Differential Indicated SCAN CRITERIA MET
[2021-02-14 12:54] LABS: Anion Gap 6 (5-15); BUN 24 mg/dL (7-18); BUN/Creat Ratio 31.2 RATIO (10-20); Chloride 106 mmol/L (98-107); Creatinine, Serum 0.77 mg/dL (0.55-1.02); EST Glomerular Filtration Rate 76 mL/min (>60); Est Glom Filt Rate - Afr Amer 92 mL/min (>60); Estimated Creatinine Clearance 35.26 ml/min; Glucose 106 mg/dL (74-106); Potassium 3.6 mmol/L (3.5-5.1); Sodium Level 138 mmol/L (136-145); Troponin-I HS 25 pg/mL (3.0-54.0)
[2021-02-14 13:13] LABS: Differential Comment SCANNED; Reactive Lymphocyte 1+
[2021-02-14] MEDS: 0.9% Normal Saline 1,000 ML 1000 ML IV (13:56)
[2021-02-14] MEDS: Ceftriaxone 1 GM/50 ML BAG IV (14:38)
[2021-02-14 15:57] LABS: Bacteria 0 SEEN /hpf (None Seen); Mucous, Urine 0 SEEN /hpf (<or=2+)
--- NOTE | 2021-02-14 16:06 | ED.RN ---
family called and updated on which room was going to.
[2021-02-14 16:35] LABS: Glucose, Dipstick Normal (Normal); Ketone-Dipstick 5 mg/dl (Negative); Leukocyte Esterase-Dipstick 500 /ul (Negative); Nitrite-Dipstick Negative (Negative); Occult Blood-Urine 10 /ul (Negative); Protein-Dipstick 15 mg/dl (Negative); Specific Gravity, Urine 1.015 (1.002-1.030); Urine Bilirubin Dipstick Negative (Negative); Urine Urobilinogen Normal (Normal)
[2021-02-14 16:57] LABS: Color, Urine Yellow (Yellow); Urine Clarity Sl Cloudy (Clear)
[2021-02-14 16:59] LABS: Amorphous Sediment 1+ URATE; Red Blood Cells-Urine 5-10 SEEN /hpf (0-5); Squamous Epithelial Cells - UA 5-10 SEEN /hpf (5-10); White Blood Cells 25-50 SEEN /hpf (0-5)
--- NOTE | 2021-02-14 17:00 | PCM.HP.STD ---
HPI - General General Date of Admission: 02/14/21 Date of Service: 02/14/21 Chief Complaint: Syncope HPI Narrative HELGA DAVIS, is a 85 F who presents to the emergency room at [facility] after having a syncopal episode at urgent care today, she had gone to urgent care due to feelings of lightheadedness, she states she was sitting on the commode and passed out. She was not having a bowel movement or micturating at the time. Evaluation in the emergency room showed the patient to be hypotensive with a blood pressure of 77/52, patient was in atrial fibrillation which is a known rhythm for her-the rate was approximately 100. Patient was given IV fluids and labs were obtained-CBC was remarkable for hemoglobin of 11.5, chemistry profile was remarkable for a BUN of 24, patient's EKG showed atrial fibrillation with a rate of approximately [address]-T wave changes in the precordial leads. Patient's chest x-ray showed an infiltrate in the left lower lung, there was also noted to be a focal infiltrate in the right lower lobe. Patient denied any fever or chills as an outpatient, she states she has a cough but it is nonproductive. Patient will be placed in observation status for syncope, hypotension, and pneumonia, she is not requiring oxygen at this time. Chest x-ray will be repeated tomorrow and she was placed on IV Zithromax and Rocephin. [facility] Medical History (Updated 02/14/21 @ 17:[address] Joseph Hyde, DO) Anemia CAP (community acquired pneumonia) Cardiac dysrhythmia Chronic a-fib Essential hypertension Failure to thrive Lower extremity pain, left Nausea and vomiting Non-rheumatic tricuspid valve insufficiency Nonrheumatic mitral (valve) stenosis Nonrheumatic mitral valve regurgitation Osteopenia Persistent atrial fibrillation Rheumatoid arthritis Rheumatoid arthritis Rheumatoid arthritis Sepsis associated hypotension Squamous cell carcinoma of skin Stroke Viral myocarditis Home Medications metoprolol succinate 100 mg PO DAILY 05/03/13 [History Last Taken 02/13/21] alendronate 70 mg tablet 70 mg PO FR 07/10/17 [History Last Taken 02/08/21] leucovorin calcium 5 mg tablet 5 mg PO MO tab 07/13/17 [History Last Taken 02/11/21] ramipril 10 mg capsule 20 mg PO DAILY cap 07/13/17 [History Last Taken 02/14/21] cholecalciferol (vitamin D3) 25 mcg (1,000 unit) tablet 25 mcg PO DAILY 03/05/20 [History Last Taken 02/13/21] methotrexate sodium 2.5 mg tablet 20 mg PO ARAUJO tab 03/05/20 [History Last Taken 02/10/21] apixaban 5 mg PO BID 06/28/20 [History Last Taken 02/14/21] atorvastatin 40 mg PO QHS 06/28/20 [History Last Taken 02/13/21] diltiazem HCl 240 mg PO DAILY 06/28/20 [History Last Taken 02/13/21] prednisone 5 mg tablet 5 mg PO DAILY tab 08/30/20 [History Last Taken 02/13/21] Allergy/AdvReac Type Severity Reaction Status Date / Time doxycycline AdvReac Severe GI Upset Verified 02/14/21 11:23 hydrochlorothiazide AdvReac Unknown Unknown Verified 02/14/21 11:23 tramadol HCl [From Ultram] AdvReac Vomiting Verified 02/14/21 11:23 Family History Mother Heart disease Hypertension Father Cancer lung Surgical History History of breast biopsy History of carpal tunnel release of both wrists History of hip replacement, total History of knee replacement Social History Smoking Status: Never smoker alcohol intake: never substance use type: does not use caffeine: Yes Type: tea Number of servings: 3 ROS Constitutional Constitutional: Denies anorexia, change in weight, chills, fatigue, fever(s), malaise, night sweats or weakness Eyes Eyes: Denies blurry vision, change in vision, discharge from eye(s) or eye pain ENT HEENT: Denies abnormal hearing, ear pain, headache(s) or hearing loss Cardiovascular Cardiovascular: Reports lightheadedness; Denies chest pain, claudication, edema or palpitations Respiratory/Chest Respiratory/Chest: Reports cough; Denies dyspnea, excessive phlegm production, hemoptysis, shortness of breath at rest, shortness of breath with exertion or wheezing Gastrointestinal Gastrointestinal: Denies abdominal pain, constipation, diarrhea, dyspepsia, hematemesis, hematochezia, melena, nausea or vomiting Genitourinary Genitourinary: Denies dysuria, hematuria, urinary frequency, urinary hesitancy, urinary incontinence or urinary urgency Musculoskeletal Musculoskeletal: Denies back pain, joint pain, joint stiffness, joint swelling, myalgias or neck pain Neurologic Neurologic: Denies abnormal gait, abnormal speech, dizziness, focal weakness, headache(s), loss of vision, numbness, other visual disturbances, paresthesias, syncope or tingling Psychiatric Psychiatric: Denies anxiety, cognitive impairment, depression, irritability, mood swings or suicidal ideation Endocrine Endocrinology: Denies change in body appearance, cold intolerance, excessive sweating, heat intolerance, polydipsia or polyuria Hematologic/Lymphatic Hematologic/Lymphatic: Denies none, anemia, easy bleeding, easy bruising or lymphadenopathy Allergic/Immunologic Allergic/Immunologic: Denies rhinitis, hives, urticaria, eczemia or asthma Vital Signs Vital Signs Vital Signs: 02/14/21 11:24 02/14/21 11:30 02/14/21 13:52 Temperature 98.0 F 98 F Temperature Source Temporal Temporal Pulse Rate 97 84 87 Respiratory Rate 15 18 19 H Blood Pressure 77/52 L 111/61 114/72 Blood Pressure Mean 60 77 86 Blood Pressure Source Blood Pressure Position Blood Pressure Location Pulse Ox 97 98 99 Oxygen Delivery Method Room Air Room Air 02/14/21 13:56 02/14/21 14:15 02/14/21 15:06 Temperature 98.1 F 98.2 F 98.2 F Temperature Source Oral Oral Oral Pulse Rate 84 88 86 Respiratory Rate 24 H 23 H 24 H Blood Pressure 114/72 111/65 128/75 H Blood Pressure Mean 86 80 92 Blood Pressure Source Blood Pressure Position Blood Pressure Location Pulse Ox 99 99 100 Oxygen Delivery Method Room Air Room Air Room Air 02/14/21 16:46 Temperature 97.9 F Temperature Source Temporal Pulse Rate 89 Respiratory Rate 20 H Blood Pressure 126/72 H Blood Pressure Mean 90 Blood Pressure Source Monitor Blood Pressure Position Semi-Fowlers Blood Pressure Location Left Arm Pulse Ox 99 Oxygen Delivery Method Room Air Weight Weight: 62.324 kg Body Mass Index (BMI) 24.3 Physical Exam Const alert, oriented x3, no apparent distress, average body habitus and healthy appearing General Appearance: cooperative HEENT normocephalic, head/scalp atraumatic, hearing grossly normal bilaterally and moist oral mucous membranes Eyes PERRL, EOMs intact bilaterally and conjunctivae normal Neck no lymphadenopathy, supple, no JVD and no carotid bruits Resp normal respiratory effort and no use of accessory muscles Resp Narrative: Inspiratory rales are noted over the left midlung field Auscultation: rales Cardio no rub, no clicks and no JVD Cardio Narrative: Heart rate and rhythm was irregular, 2/6 systolic murmur is noted at the apex GI normal to inspection, nondistended, normoactive bowel sounds, soft to palpation, non-tender and non-distended Extremity normal to inspection and no clubbing, cyanosis or edema Skin no rashes or lesions noted, no wounds and skin turgor normal Neuro oriented x3, CN's II-XII intact bilaterally and no focal motor deficits Sensorium / Orientation: awake and alert Psych affect normal Results Lab / Micro Data Result Diagrams: 02/14/21 12:30 02/14/21 12:30 Labs: Laboratory Results - last 24 hr 02/14/21 12:30: WBC 10.6, RBC 3.75 L, Hgb 11.5 L, Hct 35.4 L, MCV 94.4, MCH 30.7, MCHC 32.5, RDW Std Deviation 53.4 H, RDW Coeff of Matt 15.6 H, Plt Count 324, MPV 9.3, Immature Gran % (Auto) 0.700, Neut % (Auto) 66.1, Lymph % (Auto) 15.6 L, [place] % (Auto) 14.5 H, Eos % (Auto) 2.3, Baso % (Auto) 0.8, Absolute Neuts (auto) 7.0, Absolute Lymphs (auto) 1.65, Nucleated RBC % 0, Differential Comment SCANNED, Reactive Lymphocytes 1+ 02/14/21 12:30: Sodium 138, Potassium 3.6, Chloride 106, Carbon Dioxide 26.0, Anion Gap 6, BUN 24 H, Creatinine 0.77, Estim Creat Clear Calc 35.26, Est GFR (MDRD) Af Amer 92, Est GFR (MDRD) Non-Af 76, BUN/Creatinine Ratio 31.2 H, Glucose 106, Calcium 9.0, Troponin I High Sens 25 02/14/21 15:40: Urine Color Yellow, Urine Clarity Sl Cloudy, Urine pH 5.0, Ur Specific [place] 1.015, Urine Protein 15 H, Urine Glucose (UA) Normal, Urine Ketones 5 H, Urine Occult Blood 10 H, Urine Nitrite Negative, Urine Bilirubin Negative, Urine Urobilinogen Normal, Ur Leukocyte Esterase 500 H, Urine RBC 5-10 SEEN, Urine WBC 25-50 SEEN, Ur Squamous Epith Cells 5-10 SEEN, Amorphous Sediment 1+ URATE, Urine Bacteria 0 SEEN, Urine Mucus 0 SEEN Micro: Microbiology 02/14/21 14:19 Nasal Secretion SARS-CoV-2 Antigen (Rapid) - Final Radiology Impression Chest X-Ray 02/14/21 12:09 IMPRESSION: Left lower lung infiltrate. Focal infiltrate in the right lower lobe. Electronically Signed: Joseph Eagle MD at 13:24 EDT , Service support , Assessment & Plan Assessment/Plan (1) Syncope: PLAN: 1. Syncope-probably secondary to hypotension, possibly secondary to cardiac arrhythmia, patient will be placed into observation status on PCU, she will be monitored on telemetry, I have discontinued her DICK inhibitor and I will reduce the dose of her Cardizem CD. I do not believe she needs a repeat echocardiogram, her last echocardiogram was done last February and it showed a normal ejection fraction and she had moderate mitral valve insufficiency and moderate tricuspid valve insufficiency. Patient had mild pulmonary hypertension. #2 community-acquired pneumonia without hypoxia-patient has virtually no symptoms of pneumonia, she does have a cough which is nonproductive, patient's Covid test was negative. I will repeat her chest x-ray tomorrow, she was placed on IV Zithromax and Rocephin. Pulse ox will be monitored #3 hypotension-possibly secondary to blood pressure medication, again I will readjust patient's blood pressure medication, patient will be given IV fluids, orthostatic blood pressures will be monitored #4 permanent atrial fibrillation-it appears to be under adequate control at this time #5 cerebral vascular disease Charges/Coding Visit Charges OBSV E&M: 77032 Initial observation care L3
[2021-02-14] MEDS: 0.9% Normal Saline 1,000 ML 75 ML IV (17:05)
[2021-02-14] MEDS: 0.9% Saline Lock 10 ML Syringe IV (17:06)
--- NOTE | 2021-02-14 17:16 | PCS.PANDOC ---
PANDEMIC DOCUMENTATION INITIATED: Date: 02/04/2021 Time: 190
[2021-02-14] MEDS: Metoprolol(XL)Succ 100 MG Tablet PO (18:24)
[2021-02-14] MEDS: Acetaminophen 325 MG Tablet 650 MG PO (18:37)
[2021-02-14] MEDS: Atorvastatin Calcium 40 MG Tablet PO (21:10)
[2021-02-14] MEDS: APIXABAN 5 MG TABLET PO (21:10)
[2021-02-15] VITALS (11 sets, daily range): BP systolic 104–155; BP diastolic 73–92; PULSE 82–122; RESP 16–20; TEMP 36.3–37.7; O2SAT 98–99
[2021-02-15] MEDS: Acetaminophen 325 MG Tablet 650 MG PO ×2 (02:53→10:07)
[2021-02-15] MEDS: 0.9% Normal Saline 1,000 ML 75 ML IV ×2 (04:31→20:23)
--- NOTE | 2021-02-15 05:55 | RAD_ITS ---
STUDY: X-RAY CHEST REASON FOR EXAM: Female, 85 years old. Left lower lobe pneumonia TECHNIQUE: PA and lateral views of the chest. COMPARISON: Comparison is made with prior study dated 02/14/2021. FINDINGS: EKG electrodes are seen. Since prior study, there has been progressive infiltration in the superior segment of the left lower lobe. Stable mild increased markings at the right lung base. There is no demonstrated pleural abnormality. There is borderline cardiomegaly. Normal mediastinum and allyson. Normal visualized pulmonary arteries. There is atherosclerotic calcification of the aortic arch with tortuosity. There is demineralization of the osseous structures. There is degenerative osteoarthritis of the bilateral shoulders. There is no demonstrated abnormality of the visualized soft tissue structures of the upper abdomen. RAD/Chest PA and Lateral IMPRESSION: Progressive left lower lobe infiltrate. Electronically Signed: Joseph Eagle MD at 8:47 EDT , Service support ,
[2021-02-15 06:08] LABS: Absolute Lymphocyte Count 2.38 X10^3/uL (0.83-4.51); Absolute Neutrophil Count 6.3 X10^3/uL (2.0-7.7); Basophil% 0.9 % (0-1); Eosinophils% 2.8 % (0-5); Hematocrit 32.6 % (37-47); Hemoglobin 10.3 g/dL (12.0-15.0); Lymphocyte # 2.38 X10^3/ul (0.83-4.51); Lymphocyte % 22.3 % (19-41); Mean Corp Hgb Conc 31.6 g/dL (32-36); Mean Corpuscular Hgb 30.6 pg (27.0-32.0); Mean Corpuscular Volume 96.7 fL (81-99); Mean Platelet Vol. 9.6 fl (6.2-12.0); Monocyte# 1.56 X10^3/uL; Monocyte% 14.6 % (0-10); NRBC Flagged by Analyzer 0 % (0-5); Neutrophil # 6.27 X10^3/uL (2.7-7.7); Neutrophil % 58.7 % (47-70); POSITIVE DIFFERENTIAL YES; POSITIVE MORPHOLOGY YES; Platelet Count 328 K/mm3 (150-450); RBC Distribution Width CV 15.8 % (11.6-14.6); RBC Distribution Width SD 55.6 fl (35.1-43.9); Red Blood Count 3.37 M/mm3 (4.2-5.4); White Blood Count 10.7 K/mm3 (4.4-11.0)
[2021-02-15 06:33] LABS: Differential Indicated SCAN CRITERIA MET
[2021-02-15 07:01] LABS: Anion Gap 7 (5-15); BUN 14 mg/dL (7-18); BUN/Creat Ratio 27.6 RATIO (10-20); Calcium,Total 7.6 mg/dL (8.5-10.1); Chloride 110 mmol/L (98-107); Creatinine, Serum 0.51 mg/dL (0.55-1.02); EST Glomerular Filtration Rate 123 mL/min (>60); Est Glom Filt Rate - Afr Amer 149 mL/min (>60); Estimated Creatinine Clearance 35.26 ml/min; Glucose 89 mg/dL (74-106); Potassium 3.4 mmol/L (3.5-5.1); Sodium Level 140 mmol/L (136-145)
[2021-02-15 08:52] LABS: Magnesium 1.7 mg/dL (1.6-2.6)
[2021-02-15] MEDS: predniSONE 5 MG Tablet PO (10:07)
[2021-02-15] MEDS: Potassium Chloride Oral Tablet 20 MEQ 40 MEQ PO (10:07)
[2021-02-15] MEDS: APIXABAN 5 MG TABLET PO ×2 (10:07→20:23)
[2021-02-15] MEDS: dilTIAZem CD 180 MG Capsule PO (10:07)
[2021-02-15] MEDS: Ceftriaxone 1 GM/50 ML BAG IV (10:08)
[2021-02-15] MEDS: Metoprolol(XL)Succ 100 MG Tablet PO (10:50)
--- NOTE | 2021-02-15 13:23 | PN.HOSP_ITS ---
Documented by User: Do Washington NP, [employer] 02/15/21 13:36 Subjective Subjective Patient seen and examined. Complains of general weakness and malaise. Denies fever, chills. Denies cough, shortness of breath. Denies further dizziness, near syncope. Objective Data Objective Data Vital Signs: Vital Signs Temp Pulse Resp BP Pulse Ox 98.1 F 92 16 133/92 H 99 02/15/21 10:06 02/15/21 10:50 02/15/21 10:06 02/15/21 10:06 02/15/21 10:06 Oxygen Delivery Method Room Air Weight: 137 lb 6.4 oz Body Mass Index (BMI) 24.3 Intake & Output: Intake and Output for Last 24 Hours 02/13/21 02/14/21 02/15/21 23:59 23:59 23:59 Intake Total 1305 / 1545 5627.5 / 5627.5 Output Total 800 / 800 Balance 1305 / 1245 4827.5 / 4827.5 Lab / Micro Data Result Diagrams: 02/15/21 05:05 02/15/21 05:05 Labs: Laboratory Results - last 24 hr 02/14/21 15:40: Urine Color Yellow, Urine Clarity Sl Cloudy, Urine pH 5.0, Ur Specific [place] 1.015, Urine Protein 15 H, Urine Glucose (UA) Normal, Urine Ketones 5 H, Urine Occult Blood 10 H, Urine Nitrite Negative, Urine Bilirubin Negative, Urine Urobilinogen Normal, Ur Leukocyte Esterase 500 H, Urine RBC 5-10 SEEN, Urine WBC 25-50 SEEN, Ur Squamous Epith Cells 5-10 SEEN, Amorphous Sediment 1+ URATE, Urine Bacteria 0 SEEN, Urine Mucus 0 SEEN 02/15/21 05:05: WBC 10.7, RBC 3.37 L, Hgb 10.3 L, Hct 32.6 L, MCV 96.7, MCH 30.6, MCHC 31.6 L, RDW Std Deviation 55.6 H, RDW Coeff of Matt 15.8 H, Plt Count 328, MPV 9.6, Immature Gran % (Auto) 0.700, Neut % (Auto) 58.7, Lymph % (Auto) 22.3, [place] % (Auto) 14.6 H, Eos % (Auto) 2.8, Baso % (Auto) 0.9, Absolute Neuts (auto) 6.3, Absolute Lymphs (auto) 2.38, Nucleated RBC % 0 02/15/21 05:05: Sodium 140, Potassium 3.4 L, Chloride 110 H, Carbon Dioxide 23.0, Anion Gap 7, BUN 14, Creatinine 0.51 L, Estim Creat Clear Calc 35.26, Est GFR (MDRD) Af Amer 149, Est GFR (MDRD) Non-Af 123, BUN/Creatinine Ratio 27.6 H, Glucose 89, Calcium 7.6 L 02/15/21 05:05: Magnesium 1.7 Micro: Microbiology 02/14/21 14:19 Nasal Secretion SARS-CoV-2 Antigen (Rapid) - Final Radiography Diagnostic Testing: Radiology Impression Chest X-Ray 02/14/21 12:09 IMPRESSION: Left lower lung infiltrate. Focal infiltrate in the right lower lobe. Electronically Signed: Joseph Eagle MD at 13:24 EDT , Service support , Chest X-Ray 02/15/21 05:55 IMPRESSION: Progressive left lower lobe infiltrate. Electronically Signed: Joseph Eagle MD at 8:47 EDT , Service support , Physical Exam Const alert, oriented x3 and no apparent distress Orientation / Consciousness: awake, oriented to person, oriented to place and oriented to time HEENT normocephalic and moist oral mucous membranes Eyes PERRL, EOMs intact bilaterally and conjunctivae normal Neck no lymphadenopathy Resp normal respiratory effort and clear to auscultation bilaterally Cardio regular rate, regular rhythm and no murmurs Peripheral Pulses: pulses 2+ throughout GI normal to inspection, nondistended, normoactive bowel sounds, non-tender and non-distended Extremity normal to inspection Skin no rashes or lesions noted Lesions: no lesions Rashes: no rashes Trauma: no lacerations or abrasions Neuro CN's II-XII intact bilaterally, no focal motor deficits, no sensory deficits noted and deep tendon reflexes 2+ bilaterally Psych mental status grossly normal and affect normal Assessment & Plan Assessment/Plan (1) Syncope: PLAN: 1. Syncope-likely secondary to hypotension. Blood pressure medications adjusted. Hypotension improved. Orthostatic vitals negative. Echocardiogram February 2020 demonstrated an EF of 65%, moderate mitral valve insufficiency, moderate tricuspid valve insufficiency. Patient states she has recurrent dizziness/lightheadedness, again, suspect this is secondary to hypotension. Will not repeat echo at this time. Monitor telemetry. 2. Community-acquired pneumonia-on IV azithromycin and IV Rocephin. Oxygen currently stable on room air. Covid negative. 3. Hypertension-Cardizem reduced due to hypotension. DICK inhibitor on hold. Continue metoprolol. 4. Permanent atrial fibrillation-on metoprolol, Eliquis. 5. History of CVA-on statin, Eliquis. 6. Rheumatoid arthritis-on prednisone, methotrexate and leucovorin. DVT prophylaxis-Eliquis Discharge: Anticipate discharge 02/16/2021 following repeat PT eval. This patient was seen by ERIC Viramontes under the supervision of Dr. Berger. Documented by User: Dr. Chandler Berger MD 02/15/21 16:16 Subjective Subjective Patient has vague symptoms of lightheadedness and dizziness for last 3 to 4 weeks. Her blood pressure was low. She has history of chronic A. fib on Eliquis. She passed out yesterday in urgent care therefore admitted. She felt dizzy and lightheaded before passing out. Found to have left lung infiltrate. No fever but mild cough. Objective Data Lab / Micro Data Result Diagrams: 02/15/21 05:05 02/15/21 05:05 Physical Exam Narrative General: Alert, Oriented x3, Cooperative HEENT: Atraumatic, PERRLA, EOMI, Normocephalic Oral: No Gingival or Mucosal Lesions/ Ulcerations Neck: Supple, No JVD, Negative Carotid Bruits Lungs: Air entry diminished in left lung bases. Left lower lung has coarse crepitations Cardiovascular: Irregular rate and Rhythm, Normal S1, Normal S2, No murmurs Abdomen: Bowel Sounds Present, Soft, Non Tender, Non-Distended : No renal angle tenderness. No suprapubic tenderness. Extremities: No edema, Capillary Refill Less than 3 Seconds Skin: No rashes, No breakdown Musculoskeletal: No Tenderness to Palpation of Joints or Extremities Neurological: Cranial nerves II-XII grossly intact, DTR 2+/4 and Symmetrical, N euro grossly intact Psych/Mental Status: Normal Affect, Appropriate. Assessment & Plan Assessment/Plan (1) Syncope: (2) Community acquired pneumonia: PLAN: This patient was seen in conjunction with Do GARCÍA. I have independently interviewed and examined the patient and reviewed pertinent history, examination findings, laboratory and plan of management. I have reviewed the note and agree with the documented findings with the few additional points. In brief, patient is admitted for syncope in PCU. Syncope most likely due to hypotension, orthostatic vitals are negative. Patient also has pneumonia which might have precipitated syncope. 2D echo as mentioned above EF 65%. On IV Rocephin and Zithromax. Rest of the comorbidities as mentioned above I have discussed my assessment with Do GARCÍA and orders have been reviewed. Charges/Coding Visit Charges Inpatient E&M: 85768 Subs Hosp L2
--- NOTE | 2021-02-15 15:24 | CASEMGMT ---
MARIANNA CM in to complete LOPEZ form with patient. RN VERNA explained LOPEZ form to patient, patient voiced understanding. Patient signed LOPEZ form and filed in chart. Patient provided with copy of signed LOPEZ form. Patient had no further questions or concerns at this time.
[2021-02-15] MEDS: Atorvastatin Calcium 40 MG Tablet PO (20:23)
[2021-02-16 03:00] VITALS: PULSE 112
[2021-02-16 04:00] VITALS: BP 141/91; PULSE 63; RESP 16; TEMP 36.8; O2SAT 95
[2021-02-16 07:00] VITALS: PULSE 106
[2021-02-16 07:00] LABS: Anion Gap 6 (5-15); BUN 8 mg/dL (7-18); BUN/Creat Ratio 18.5 RATIO (10-20); Calcium,Total 7.6 mg/dL (8.5-10.1); Chloride 112 mmol/L (98-107); Creatinine, Serum 0.43 mg/dL (0.55-1.02); EST Glomerular Filtration Rate 148 mL/min (>60); Est Glom Filt Rate - Afr Amer 179 mL/min (>60); Estimated Creatinine Clearance 35.26 ml/min; Glucose 91 mg/dL (74-106); Sodium Level 140 mmol/L (136-145)
[2021-02-16 08:12] VITALS: BP 144/96; PULSE 93; RESP 18; TEMP 37.1; O2SAT 97
[2021-02-16 08:16] VITALS: BP 144/96; PULSE 93
[2021-02-16] MEDS: APIXABAN 5 MG TABLET PO (08:16)
[2021-02-16] MEDS: Ceftriaxone 1 GM/50 ML BAG IV (08:16)
[2021-02-16] MEDS: predniSONE 5 MG Tablet PO (08:16)
[2021-02-16] MEDS: Metoprolol(XL)Succ 100 MG Tablet PO (08:16)
[2021-02-16] MEDS: dilTIAZem CD 180 MG Capsule PO (08:16)
[2021-02-16] MEDS: 0.9% Normal Saline 1,000 ML 75 ML IV (08:26)
--- NOTE | 2021-02-16 09:58 | DCINST_ITS ---
Discharge Instructions Diet Discharge Diet: No restrictions Activity Discharge Activity: Return to Normal Activity Dressing / Incision Call your doctor if you observe: Fever of 101 or Higher, Shortness of breath, Dizziness and Chest pain Follow Up Care Test Results: Test results from this visit will be discussed in further detail at your follow-up appointment, if applicable. Discharge Plan Admission Admit Date/Time: 02/14/21 15:35 Primary Reason for Your Visit: Syncope, pneumonia Attending Provider: Chandler Berger Primary Care Provider: Delfin Kamara Discharge Orders/Prescriptions Prescriptions: New diltiazem HCl 180 mg Capsule,Extended Release 24hr 180 mg PO DAILY Qty: 30 RF: 0 ramipril 10 mg capsule 10 mg PO DAILY Qty: 30 RF: 0 levofloxacin 750 mg tablet 750 mg PO Q48H Qty: 4 RF: 0 Continued leucovorin calcium 5 mg tablet 5 mg PO MO RF: 0 alendronate 70 mg tablet 70 mg PO FR RF: 0 cholecalciferol (vitamin D3) 25 mcg (1,000 unit) tablet 25 mcg PO DAILY RF: 0 prednisone 5 mg tablet 5 mg PO DAILY RF: 0 metoprolol succinate 100 MG tablet 100 mg PO DAILY RF: 0 methotrexate sodium 2.5 mg tablet 20 mg PO ARAUJO RF: 0 atorvastatin 40 MG tablet 40 mg PO QHS RF: 0 apixaban 5 MG tablet 5 mg PO BID RF: 0 Discontinued ramipril 10 MG capsule 20 mg PO DAILY RF: 0 diltiazem HCl 240 MG capsule 240 mg PO DAILY RF: 0 Referrals / Follow Up: Delfin Kamara MD [Primary Care Provider] - In 1 Week Ramesh Almonte MD [STAFF PHYSICIAN] - See Referral Note (As scheduled 02/18/21. ) Tad Tejada NP, [employer] [Nurse Practitioner] - See Referral Note (As scheduled 03/12/21) Disposition Disposition (needs filled in before D/C Order can be placed): Home, Self Care
--- NOTE | 2021-02-16 10:18 | PCM.DC.SUM ---
Documented by User: Do Washington NP, JUNIOR BRAND MANAGER-C 02/16/21 10:26 Providers Date of Admission: 02/14/21 Date of Discharge: 02/16/21 Primary Care Physician: Dr. Delfin Kamara MD Reason For Visit: SYNCOPE, HYPOTENSION Diagnosis Discharge Diagnosis (1) Syncope: Status: Acute Code(s): R55 - Syncope and collapse (2) Community acquired pneumonia: Status: Acute Code(s): J18.9 - Pneumonia, unspecified organism Medications at Discharge Home Medications metoprolol succinate 100 mg PO DAILY 05/03/13 alendronate 70 mg tablet 70 mg PO FR 07/10/17 leucovorin calcium 5 mg tablet 5 mg PO MO tab 07/13/17 cholecalciferol (vitamin D3) 25 mcg (1,000 unit) tablet 25 mcg PO DAILY 03/05/20 methotrexate sodium 2.5 mg tablet 20 mg PO ARUAJO tab 03/05/20 apixaban 5 mg PO BID 06/28/20 atorvastatin 40 mg PO QHS 06/28/20 prednisone 5 mg tablet 5 mg PO DAILY tab 08/30/20 diltiazem HCl 180 mg PO DAILY #30 cap 02/16/21 levofloxacin 750 mg PO Q48H #4 tab 02/16/21 ramipril 10 mg PO DAILY #30 cap 02/16/21 Hospital Course Operations None Procedures None Summary of Care Provided Minutes Spent on Discharge: 35 Hospital Course: Patient is an 85-year-old female admitted 02/14/2021 due to syncope. 1. Syncope-likely secondary to hypotension. Blood pressure medications adjusted. Hypotension improved. Orthostatic vitals negative. Echocardiogram February 2020 demonstrated an EF of 65%, moderate mitral valve insufficiency, moderate tricuspid valve insufficiency. Patient states she has recurrent dizziness/lightheadedness, again, suspect this is secondary to hypotension. Will not repeat echo at this time. Ramipril reduced to 10 mg daily and Cardizem reduced to 180 mg daily. Instructed patient to monitor blood pressure twice daily. Hold blood pressure medications for systolic blood pressure less than 100. Patient has upcoming follow-up with cardiology 03/12/2021. 2. Community-acquired pneumonia-on IV azithromycin and IV Rocephin during admission. Covid negative. Oxygen stable on room air. Will avoid penicillins as patient is on methotrexate. Discharged on renally dosed Levaquin to complete course. 3. Hypertension-Cardizem, DICK inhibitor dose reduced as noted above. Continue metoprolol. 4. Permanent atrial fibrillation-on metoprolol, Eliquis. 5. History of CVA-on statin, Eliquis. 6. Rheumatoid arthritis-on prednisone, methotrexate and leucovorin. Physical Exam Const alert, oriented x3 and no apparent distress Orientation / Consciousness: awake, oriented to person, oriented to place and oriented to time HEENT normocephalic and moist oral mucous membranes Eyes PERRL, EOMs intact bilaterally and conjunctivae normal Neck no lymphadenopathy Resp normal respiratory effort and clear to auscultation bilaterally Cardio Atrial fibrillation, rate controlled and no murmurs Peripheral Pulses: pulses 2+ throughout GI normal to inspection, nondistended, normoactive bowel sounds, non-tender and non-distended Extremity normal to inspection Skin no rashes or lesions noted Lesions: no lesions Rashes: no rashes Trauma: no lacerations or abrasions Neuro CN's II-XII intact bilaterally, no focal motor deficits, no sensory deficits noted and deep tendon reflexes 2+ bilaterally Psych mental status grossly normal and affect normal Patient seen and examined prior to discharge. Physical assessment as noted above. Patient is stable for discharge with follow up recommendations as noted above. This patient was seen by ERIC Viramontes under the supervision of Dr. Berger. Weight / BMI Weight Weight: 137 lb 6.4 oz Body Mass Index (BMI) 24.3 ABG / Lab / Microbiology Data Result Diagrams: 02/15/21 05:05 02/16/21 05:50 Laboratory: Laboratory Results - last 24 hr 02/16/21 05:50: Sodium 140, Potassium 4.0, Chloride 112 H, Carbon Dioxide 22.0, Anion Gap 6, BUN 8, Creatinine 0.43 L, Estim Creat Clear Calc 35.26, Est GFR (MDRD) Af Amer 179, Est GFR (MDRD) Non-Af 148, BUN/Creatinine Ratio 18.5, Glucose 91, Calcium 7.6 L Microbiology: Microbiology 02/14/21 14:19 Nasal Secretion SARS-CoV-2 Antigen (Rapid) - Final D/C Instructions Discharge Diet: No restrictions Call your doctor if you observe: Fever of 101 or Higher, Shortness of breath, Dizziness and Chest pain Meaningful Use Info Meaningful Use Diagnoses (Choose all that apply): None applicable Discharge Plan Admission Admit Date/Time: 02/14/21 15:35 Primary Reason for Your Visit: Syncope, pneumonia Attending Provider: Chandler Berger Primary Care Provider: Delfin Kamara Discharge Orders/Prescriptions Prescriptions: New diltiazem HCl 180 mg Capsule,Extended Release 24hr 180 mg PO DAILY Qty: 30 RF: 0 ramipril 10 mg capsule 10 mg PO DAILY Qty: 30 RF: 0 levofloxacin 750 mg tablet 750 mg PO Q48H Qty: 4 RF: 0 Continued leucovorin calcium 5 mg tablet 5 mg PO MO RF: 0 alendronate 70 mg tablet 70 mg PO FR RF: 0 cholecalciferol (vitamin D3) 25 mcg (1,000 unit) tablet 25 mcg PO DAILY RF: 0 prednisone 5 mg tablet 5 mg PO DAILY RF: 0 metoprolol succinate 100 MG tablet 100 mg PO DAILY RF: 0 methotrexate sodium 2.5 mg tablet 20 mg PO ARAUJO RF: 0 atorvastatin 40 MG tablet 40 mg PO QHS RF: 0 apixaban 5 MG tablet 5 mg PO BID RF: 0 Discontinued ramipril 10 MG capsule 20 mg PO DAILY RF: 0 diltiazem HCl 240 MG capsule 240 mg PO DAILY RF: 0 Referrals / Follow Up: Delfin Kamara MD [Primary Care Provider] - In 1 Week Ramesh Almonte MD [STAFF PHYSICIAN] - See Referral Note (As scheduled 02/18/21. ) Tad Tejada NP, JUNIOR BRAND MANAGER-C [Nurse Practitioner] - See Referral Note (As scheduled 03/12/21) Disposition Disposition (needs filled in before D/C Order can be placed): Home, Self Care Documented by User: Dr. Chandler Berger MD 02/16/21 15:27 Providers Date of Admission: 02/14/21 Reason For Visit: SYNCOPE, HYPOTENSION Medications at Discharge Home Medications metoprolol succinate 100 mg PO DAILY 05/03/13 alendronate 70 mg tablet 70 mg PO FR 07/10/17 leucovorin calcium 5 mg tablet 5 mg PO MO tab 07/13/17 cholecalciferol (vitamin D3) 25 mcg (1,000 unit) tablet 25 mcg PO DAILY 03/05/20 methotrexate sodium 2.5 mg tablet 20 mg PO ARAUJO tab 03/05/20 apixaban 5 mg PO BID 06/28/20 atorvastatin 40 mg PO QHS 06/28/20 prednisone 5 mg tablet 5 mg PO DAILY tab 08/30/20 diltiazem HCl 180 mg PO DAILY #30 cap 02/16/21 levofloxacin 750 mg PO Q48H #4 tab 02/16/21 ramipril 10 mg PO DAILY #30 cap 02/16/21 Hospital Course Summary of Care Provided Hospital Course: This patient was seen in conjunction with JUNIOR BRAND MANAGERDo. I have independently interviewed and examined the patient and reviewed pertinent history, examination findings, laboratory and plan of management. I have reviewed the note and agree with the documented findings with the few additional points. In brief, patient is admitted for syncope in PCU. Syncope most likely due to hypotension, orthostatic vitals are negative. Patient also has pneumonia which might have precipitated syncope. 2D echo as mentioned above EF 65%. On IV Rocephin and Zithromax. And is discharged on Levaquin. Discharge medication reconciliation done. Discharge follow-up instructions completed. Discharge process discussed with the patient and all questions were answered to patient's satisfaction. Total time spent, exact 35 minutes on discharge meds reconciliation, examination, coordination of care with nurses and ancillary staff, review of imaging and blood test and discussion with the patient on follow-up instructions Rest of the comorbidities as mentioned above I have discussed my assessment with Do GARCÍA and orders have been reviewed. Physical Exam Narrative Patient wants to go home. advanced practice nurse psychotherapist shows A. fib. General: Alert, Oriented x3, Cooperative HEENT: Atraumatic, PERRLA, EOMI, Normocephalic Oral: No Gingival or Mucosal Lesions/ Ulcerations Neck: Supple, No JVD, Negative Carotid Bruits Lungs: Air entry diminished in left lung bases. Left lower lung occasional crepitations Cardiovascular: Irregular rate and Rhythm, Normal S1, Normal S2, No murmurs Abdomen: Bowel Sounds Present, Soft, Non Tender, Non-Distended : No renal angle tenderness. No suprapubic tenderness. Extremities: No edema, Capillary Refill Less than 3 Seconds Skin: No rashes, No breakdown Musculoskeletal: No Tenderness to Palpation of Joints or Extremities Neurological: Cranial nerves II-XII grossly intact, DTR 2+/4 and Symmetrical, Neuro grossly intact Psych/Mental Status: Normal Affect, Appropriate. HEENT normocephalic, head/scalp atraumatic, hearing grossly normal bilaterally and moist oral mucous membranes Eyes PERRL, EOMs intact bilaterally and conjunctivae normal Neck no lymphadenopathy, supple, no JVD and no carotid bruits Resp normal respiratory effort, no use of accessory muscles and clear to auscultation bilaterally Resp Narrative: Inspiratory rales are noted over the left midlung field Auscultation: rales Cardio regular rate, regular rhythm, no murmurs, no rub, no clicks and no JVD Cardio Narrative: Heart rate and rhythm was irregular, 2/6 systolic murmur is noted at the apex Peripheral Pulses: pulses 2+ throughout GI normal to inspection, nondistended, normoactive bowel sounds, soft to palpation, non-tender and non-distended Extremity normal to inspection and no clubbing, cyanosis or edema Skin no rashes or lesions noted, no wounds and skin turgor normal Lesions: no lesions Rashes: no rashes Trauma: no lacerations or abrasions Neuro oriented x3, CN's II-XII intact bilaterally, no focal motor deficits, no sensory deficits noted and deep tendon reflexes 2+ bilaterally Sensorium / Orientation: awake and alert Psych mental status grossly normal and affect normal ABG / Lab / Microbiology Data Result Diagrams: 02/15/21 05:05 02/16/21 05:50 Discharge Plan Admission Admit Date/Time: 02/14/21 15:35 Primary Reason for Your Visit: Syncope, pneumonia Attending Provider: Chandler Berger Primary Care Provider: Delfin Kamara Discharge Orders/Prescriptions Prescriptions: New diltiazem HCl 180 mg Capsule,Extended Release 24hr 180 mg PO DAILY Qty: 30 RF: 0 ramipril 10 mg capsule 10 mg PO DAILY Qty: 30 RF: 0 levofloxacin 750 mg tablet 750 mg PO Q48H Qty: 4 RF: 0 Continued leucovorin calcium 5 mg tablet 5 mg PO MO RF: 0 alendronate 70 mg tablet 70 mg PO FR RF: 0 cholecalciferol (vitamin D3) 25 mcg (1,000 unit) tablet 25 mcg PO DAILY RF: 0 prednisone 5 mg tablet 5 mg PO DAILY RF: 0 metoprolol succinate 100 MG tablet 100 mg PO DAILY RF: 0 methotrexate sodium 2.5 mg tablet 20 mg PO ARAUJO RF: 0 atorvastatin 40 MG tablet 40 mg PO QHS RF: 0 apixaban 5 MG tablet 5 mg PO BID RF: 0 Discontinued ramipril 10 MG capsule 20 mg PO DAILY RF: 0 diltiazem HCl 240 MG capsule 240 mg PO DAILY RF: 0 Referrals / Follow Up: Delfin Kamara MD [Primary Care Provider] - In 1 Week Ramesh Almonte MD [STAFF PHYSICIAN] - See Referral Note (As scheduled 02/18/21. ) Tad Tejada NP, JUNIOR BRAND MANAGER-C [Nurse Practitioner] - See Referral Note (As scheduled 03/12/21) Disposition Disposition (needs filled in before D/C Order can be placed): Home, Self Care Charges/Coding Visit Charges OBSV E&M: 88353 Observation care discharge
--- NOTE | 2021-02-16 10:21 | CASEMGMT ---
Per therapy, no therapy recommended. This RN CM to room and pt states no concerns with going home at discharge. Pt states has w/c, WW and states f/u with Dr Almonte on thursday regarding her knee. Pt states will speak with Dr. Almonte about whether therapy is recommended when she sees him. Maribel CABRAL CM
== END 2021-02-16 10:01 | disposition home or self-care (01) ==
LOC: ED 14:24 → PCU 15:42
PROVIDERS: Nurse Practitioner Family; Admitting Provider Internal Medicine; Emergency Provider Emergency Medicine; PCP Family Medicine; Visit Provider Internal Medicine
DX: R55 Syncope and collapse (principal); J18.9 Pneumonia, unspecified organism; I10 Essential (primary) hypertension; M06.9 Rheumatoid arthritis, unspecified; I48.21 Permanent atrial fibrillation; I95.9 Hypotension, unspecified; Z79.899 Other long term (current) drug therapy; Z79.52 Long term (current) use of systemic steroids; Z79.01 Long term (current) use of anticoagulants; Z86.73 Personal history of transient ischemic attack (TIA), and cerebral infarction without residual deficits
CPT/HCPCS: 36415; 71045; 71046; 80048; 81001; 83735; 84484; 85025; 87426; 93005; 96361; 96365; 96366; 96367; 97110; 97116; 97162; 97166; 99218; 99285; J7030; A4216; G0378

== ENCOUNTER → 2021-03-12 15:30 | Outpatient (CLI) | payer MEDICARE, OTHER, SELFPAY ==
[2021-03-12 16:19] LABS: Absolute Lymphocyte Count 1.66 X10^3/uL (0.83-4.51); Basophil# 0.05 X10^3/uL; Basophil% 0.8 % (0-1); Eosinophil# 0.49 X10^3/uL; Eosinophils% 7.5 % (0-5); Hematocrit 34.3 % (37-47); Hemoglobin 10.9 g/dL (12.0-15.0); Lymphocyte # 1.66 X10^3/ul (0.83-4.51); Lymphocyte % 25.5 % (19-41); Mean Corp Hgb Conc 31.8 g/dL (32-36); Mean Corpuscular Hgb 31.8 pg (27.0-32.0); Mean Platelet Vol. 9.7 fl (6.2-12.0); Monocyte# 0.27 X10^3/uL; Monocyte% 4.2 % (0-10); NRBC Flagged by Analyzer 0 % (0-5); Neutrophil # 4.02 X10^3/uL (2.7-7.7); Neutrophil % 61.8 % (47-70); Platelet Count 303 K/mm3 (150-450); RBC Distribution Width CV 17.5 % (11.6-14.6); RBC Distribution Width SD 62.8 fl (35.1-43.9); Red Blood Count 3.43 M/mm3 (4.2-5.4); White Blood Count 6.5 K/mm3 (4.4-11.0)
[2021-03-12 16:27] LABS: Erythrocyte Sedimentation Rate 32 mm/hr (0-30)
[2021-03-12 16:51] LABS: AST(SGOT) 37 U/L (15-37); Alanine Aminotransfer ALT/SGPT 23 U/L (13-56); Albumin, Serum 2.8 g/dL (3.2-5.0); Alkaline Phosphatase 74 U/L (45-117); Creatinine, Serum 0.69 mg/dL (0.55-1.02); EST Glomerular Filtration Rate 87 mL/min (>60); Est Glom Filt Rate - Afr Amer 105 mL/min (>60); Protein, Total 6.8 g/dL (6.4-8.2)
== END ==
PROVIDERS: PCP Family Medicine; Referring Provider Internal Medicine Rheumatology; Visit Provider Internal Medicine Rheumatology
DX: M05.79 Rheumatoid arthritis with rheumatoid factor of multiple sites without organ or systems involvement (principal); Z79.899 Other long term (current) drug therapy
CPT/HCPCS: 36415; 80076; 82565; 85025; 85652; 86140

== ENCOUNTER 2021-05-17 10:39 | Emergency (ER) | payer MEDICARE, OTHER, SELFPAY ==
[2021-05-17 10:39] VITALS: BP 134/80; PULSE 83; RESP 16; O2SAT 100
[2021-05-17 10:40] VITALS: BP 133/78; PULSE 85; RESP 25; TEMP 36.3; O2SAT 100; BMI 24.5
--- NOTE | 2021-05-17 11:51 | RAD_ITS ---
INDICATION: weakness EXAMINATION/TECHNIQUE: X-RAY - XR Chest 1 View COMPARISON: None. FINDINGS: LINES/DEVICES: None. Cardiomediastinal silhouette is within normal limits. No focal consolidations, effusions, or sizable pneumothorax. Osseous structures are grossly intact. Bilateral glenohumeral and acromioclavicular joint degenerative changes. RAD/Chest 1 View (Portable) IMPRESSION: No acute cardiopulmonary process. Electronically Signed: Alen Barajas MD at 13:10 EST Tel , Service support ,
--- NOTE | 2021-05-17 11:51 | EKG12_ITS ---
Test Reason : WEAKNESS Blood Pressure : / mmHG Vent. Rate : 080 BPM Atrial Rate : 250 BPM P-R Int : 000 ms QRS Dur : 110 ms QT Int : 414 ms P-R-T Axes : 000 050 227 degrees QTc Int : [address] & Marked T wave abnormality, consider anterolateral ischemia Prolonged QT Abnormal ECG Confirmed by DINORA GALAN, KVNG ([id number]), newspaper or periodical editor JASON DAY ([id number]) on 05/21/2021 8:53:19 AM Referred By: DAR Confirmed By:KVNG FARIAS MD
--- NOTE | 2021-05-17 11:52 | EX.ED.DYSGE1 ---
HPI History of Present Illness Chief Complaint: Weakness Informant: patient Narrative Narrative: 85-year-old female presenting to the emergency department via EMS with chief complaint of weakness. She states that she has felt weak for 3 days. She states she cannot really describe it but she just feels weak. She has not really had much to eat or drink during this timeframe. She denies any abdominal pain. She does note that her daughter told her that she had diarrhea yesterday and today. No vomiting. No chest pain or headaches. No rashes. She notes the occasional cramp in her left leg. She states there is no particular reason why she is not eating she just does not feel like it. She lives at home with her and he has been eating. [facility] Medical History (Updated 05/17/21 @ 13:[address] Ramy Vasquez ) Anemia CAP (community acquired pneumonia) Cardiac dysrhythmia Chronic a-fib Essential hypertension Failure to thrive Lower extremity pain, left Nausea and vomiting Non-rheumatic tricuspid valve insufficiency Nonrheumatic mitral (valve) stenosis Nonrheumatic mitral valve regurgitation Osteopenia Persistent atrial fibrillation Rheumatoid arthritis Rheumatoid arthritis Rheumatoid arthritis Sepsis associated hypotension Squamous cell carcinoma of skin Stroke Viral myocarditis Home Medications metoprolol succinate 100 mg PO DAILY 05/03/13 [History Last Taken 02/13/21] alendronate 70 mg tablet 70 mg PO FR 07/10/17 [History Last Taken 02/08/21] leucovorin calcium 5 mg tablet 5 mg PO MO tab 07/13/17 [History Last Taken 02/11/21] cholecalciferol (vitamin D3) 25 mcg (1,000 unit) tablet 25 mcg PO DAILY 03/05/20 [History Last Taken 02/13/21] methotrexate sodium 2.5 mg tablet 20 mg PO ARAUJO tab 03/05/20 [History Last Taken 02/10/21] apixaban 5 mg PO BID 06/28/20 [History Last Taken 02/14/21] atorvastatin 40 mg PO QHS 06/28/20 [History Last Taken 02/13/21] diltiazem HCl 180 mg PO DAILY #30 cap 02/16/21 [Rx Last Taken Unknown] prednisone 5 mg tablet 5 mg PO Q OTHER DAY tab 03/12/21 [History Last Taken Unknown] ramipril 10 mg capsule 10 mg PO DAILY #90 cap 03/12/21 [Rx Last Taken Unknown] albuterol sulfate [Ventolin HFA] 2 puff INHALATION Q4H PRN PRN #1 inhaler 05/17/21 [Rx Last Taken Unknown] dexamethasone 6 mg PO DAILY #7 tab 05/17/21 [Rx Last Taken Unknown] Allergy/AdvReac Type Severity Reaction Status Date / Time doxycycline AdvReac Severe GI Upset Verified 05/17/21 10:40 hydrochlorothiazide AdvReac Unknown Unknown Verified 05/17/21 10:40 tramadol HCl [From Ultram] AdvReac Vomiting Verified 05/17/21 10:40 Family History Mother Heart disease Hypertension Father Cancer lung Surgical History History of breast biopsy History of carpal tunnel release of both wrists History of hip replacement, total History of knee replacement Social History Smoking Status: Never smoker alcohol intake: never substance use type: does not use caffeine: Yes Type: tea Number of servings: 3 ROS ROS ED Constitutional Constitutional ED: Reports other Details: Generalized weakness ; Denies chills, fever(s) or weight loss Eyes Eyes: Denies change in vision or diplopia ENT ENT ED: Denies ear pain, rhinorrhea or sore throat Cardiovascular Cardiovascular: Denies chest pain, orthopnea, palpitations or racing heartbeat Respiratory/Chest Respiratory/Chest: Denies cough, dyspnea or orthopnea Gastrointestinal Gastrointestinal: Reports diarrhea; Denies abdominal pain, nausea or vomiting Genitourinary Genitourinary ED: Denies dysuria, hematuria or urinary frequency Musculoskeletal Musculoskeletal: Denies arthralgias or myalgias Integumentary Denies abscess or rash Neurologic Neurologic: Denies headache(s) or weakness Psychiatric Psychiatric: Denies anxiety, depression, suicidal ideation or suicidal thoughts Endocrine Endocrinology: Denies polydipsia, polyphagia or polyuria Allergic/Immunologic Allergic/Immunologic ED: Denies mouth swelling, tongue swelling or urticaria EXAM Physical Exam Const Vital Signs: 05/17/21 10:39 05/17/21 10:40 05/17/21 10:55 Temperature 97.4 F L Temperature Source Oral Pulse Rate 83 85 Pulse Rate [Lying] Pulse Rate [Sitting] Pulse Rate [Standing] Respiratory Rate 16 25 H Respiratory Pattern Normal Blood Pressure 134/80 H 133/78 H Blood Pressure [Lying] Blood Pressure [Sitting] Blood Pressure [Standing] Blood Pressure Mean 98 96 Blood Pressure Mean [Lying] Blood Pressure Mean [Sitting] Blood Pressure Mean [Standing] Pulse Ox 100 100 Oxygen Delivery Method Room Air Room Air 05/17/21 12:33 05/17/21 12:39 Temperature Temperature Source Pulse Rate 96 Pulse Rate [Lying] 94 Pulse Rate [Sitting] 96 Pulse Rate [Standing] 103 H Respiratory Rate 18 Respiratory Pattern Blood Pressure 134/100 H Blood Pressure [Lying] 124/73 H Blood Pressure [Sitting] 130/80 H Blood Pressure [Standing] 134/100 H Blood Pressure Mean 111 Blood Pressure Mean [Lying] 90 Blood Pressure Mean [Sitting] 96 Blood Pressure Mean [Standing] 111 Pulse Ox 95 Oxygen Delivery Method Room Air Positive well nourished and well developed General Appearance ED: well developed HEENT Reports normocephalic, head/scalp atraumatic, TM's clear and moist mucous membranes Negative for trauma Tympanic Membrane ED: Yes TM's clear Eyes PERRL and EOMs intact bilaterally Neck no lymphadenopathy, supple and no JVD Resp normal respiratory effort and clear to auscultation bilaterally Cardio no murmurs Rate: other Rhythm: abnormal rhythm irregularly irregular GI normal to inspection, nondistended, normoactive bowel sounds and non-tender Palpation: soft Back/Spine no CVA tenderness and normal ROM Extremity normal to inspection General Extremety ED: Negative for edema General Extremity: Negative for edema Neuro oriented x3 and CN's II-XII intact bilaterally Sensorium / Orientation: alert Motor Exam: strength 5/5 throughout Psych mental status grossly normal Mood & Affect: Negative for depressed or tearful Skin no rashes or lesions noted and no wounds MDM MDM MDM Narrative Medical decision making narrative: Basic blood work showed a leukopenia of 2.7 platelet count 169 and hemoglobin 12.2. CMP and lipase negative. Troponin is 39. Urinalysis negative. My interpretation of the chest x-ray is no acute process. Radiology concurs. The patient's Covid test is positive. This would certainly explain her fatigue and her decreased p.o. She is not requiring any supplemental oxygen. I think she clinically appears stable for home. I will write her for have albuterol MDI and dexamethasone. Patient is to monitor self return if worsening or concerns Lab Data Attestation: I reviewed the patient's lab results. Labs: Laboratory Results - last 24 hr 05/17/21 05/17/21 05/17/21 12:09 12:09 12:45 WBC 2.7 L RBC 3.83 L Hgb 12.2 Hct 37.3 MCV 97.4 MCH 31.9 MCHC 32.7 RDW Std Deviation 56.9 H RDW Coeff of Matt 16.0 H Plt Count 169 MPV 10.3 Immature Gran % (Auto) 0.800 Neut % (Auto) 78.2 H Lymph % (Auto) 15.0 L Bradley % (Auto) 4.1 Eos % (Auto) 1.5 Baso % (Auto) 0.4 Absolute Neuts (auto) 2.1 Absolute Lymphs (auto) 0.40 L Nucleated RBC % 0 Differential Comment COMMENT Diff Path Review May foll Sodium 140 Potassium 3.9 Chloride 109 H Carbon Dioxide 25.0 Anion Gap 6 BUN 14 Creatinine 0.75 Estim Creat Clear Calc 35.26 Est GFR (MDRD) Af Amer 95 Est GFR (MDRD) Non-Af 79 BUN/Creatinine Ratio 18.7 Glucose 86 Calcium 8.4 L Total Bilirubin 0.90 AST 35 ALT 19 Alkaline Phosphatase 74 Troponin I High Sens 39 Total Protein 6.4 Albumin 2.9 L Globulin 3.5 Albumin/Globulin Ratio 0.8 L Lipase 127 Urine Color Yellow Urine Clarity Clear Urine pH 5.0 Ur Specific Superior 1.025 Urine Protein 30 H Urine Glucose (UA) Normal Urine Ketones 15 H Urine Occult Blood 25 H Urine Nitrite Negative Urine Bilirubin Negative Urine Urobilinogen Normal Ur Leukocyte Esterase 100 H Urine RBC 0-5 SEEN Urine WBC 0-5 SEEN Ur Squamous Epith Cells 0-5 SEEN Calcium Oxalate Crystal 1+ Urine Bacteria 1+ Urine Mucus 0 SEEN Radiography Diagnostic Testing: Clinical Impression(s) from Imaging Studies Chest X-Ray 05/17/21 11:51 IMPRESSION: No acute cardiopulmonary process. Electronically Signed: Alen Barajas MD at 13:10 EST Tel , Service support , EKG Initial EKG: Attestation: I personally reviewed and interpreted this EKG as follows: Comments: Atrial fibrillation with a ventricular rate of 80 bpm. Prior EKG tracings: available for review Prior: Unchanged Discharge Plan Triage Chief Complaint: Weakness ED Provider: Ramy Vasquez Dx/Rx/DC Orders Clinical Impression: COVID-19 Instructions: Coronavirus Disease 2019 (COVID-19): Caring for Yourself or Others Prescriptions: New dexamethasone 6 MG tablet 6 mg PO DAILY Qty: 7 RF: 0 albuterol sulfate [Ventolin HFA] 1 INHALER inhaler 2 puff inhalation Q4H PRN PRN (Reason: Wheezing) Qty: 1 RF: 0 No Action leucovorin calcium 5 mg tablet 5 mg PO MO RF: 0 alendronate 70 mg tablet 70 mg PO FR RF: 0 cholecalciferol (vitamin D3) 25 mcg (1,000 unit) tablet 25 mcg PO DAILY RF: 0 prednisone 5 mg tablet 5 mg PO Q OTHER DAY RF: 0 ramipril 10 mg capsule 10 mg PO DAILY Qty: 90 RF: 3 metoprolol succinate 100 MG tablet 100 mg PO DAILY RF: 0 methotrexate sodium 2.5 mg tablet 20 mg PO ARAUJO RF: 0 atorvastatin 40 MG tablet 40 mg PO QHS RF: 0 apixaban 5 MG tablet 5 mg PO BID RF: 0 diltiazem HCl 180 mg Capsule,Extended Release 24hr 180 mg PO DAILY Qty: 30 RF: 0 Primary Care Provider: Delfin Kamara Referrals: Delfin Kamara MD [Primary Care Provider] - As Needed Disposition Disposition: Home, Self Care
[2021-05-17 12:17] LABS: Absolute Neutrophil Count 2.1 X10^3/uL (2.0-7.7); Basophil# 0.01 X10^3/uL; Basophil% 0.4 % (0-1); Eosinophil# 0.04 X10^3/uL; Eosinophils% 1.5 % (0-5); Hematocrit 37.3 % (37-47); Hemoglobin 12.2 g/dL (12.0-15.0); Mean Corp Hgb Conc 32.7 g/dL (32-36); Mean Corpuscular Hgb 31.9 pg (27.0-32.0); Mean Corpuscular Volume 97.4 fL (81-99); Mean Platelet Vol. 10.3 fl (6.2-12.0); Monocyte# 0.11 X10^3/uL; Monocyte% 4.1 % (0-10); NRBC Flagged by Analyzer 0 % (0-5); Neutrophil # 2.08 X10^3/uL (2.7-7.7); Neutrophil % 78.2 % (47-70); POSITIVE DIFFERENTIAL YES; POSITIVE MORPHOLOGY YES; Platelet Count 169 K/mm3 (150-450); RBC Distribution Width SD 56.9 fl (35.1-43.9); Red Blood Count 3.83 M/mm3 (4.2-5.4); White Blood Count 2.7 K/mm3 (4.4-11.0)
[2021-05-17 12:18] LABS: Differential Indicated SCAN CRITERIA MET
[2021-05-17 12:33] VITALS: BP 124/73; BP 130/80; BP 134/100; PULSE 103; PULSE 94; PULSE 96
[2021-05-17 12:37] LABS: ALB/GLOB Ratio 0.8 RATIO (0.9-2.4); AST(SGOT) 35 U/L (15-37); Alanine Aminotransfer ALT/SGPT 19 U/L (13-56); Albumin, Serum 2.9 g/dL (3.2-5.0); Alkaline Phosphatase 74 U/L (45-117); Anion Gap 6 (5-15); BUN 14 mg/dL (7-18); BUN/Creat Ratio 18.7 RATIO (10-20); Calcium,Total 8.4 mg/dL (8.5-10.1); Chloride 109 mmol/L (98-107); Creatinine, Serum 0.75 mg/dL (0.55-1.02); EST Glomerular Filtration Rate 79 mL/min (>60); Est Glom Filt Rate - Afr Amer 95 mL/min (>60); Estimated Creatinine Clearance 35.26 ml/min; Globulin 3.5 g/dL (2.2-4.2); Glucose 86 mg/dL (74-106); Lipase 127 U/L (73-393); Potassium 3.9 mmol/L (3.5-5.1); Protein, Total 6.4 g/dL (6.4-8.2); Sodium Level 140 mmol/L (136-145); Troponin-I HS 39 pg/mL (3.0-54.0)
[2021-05-17 12:39] VITALS: BP 134/100; PULSE 96; RESP 18; O2SAT 95
[2021-05-17] MEDS: 0.9% Normal Saline 1,000 ML 1000 ML IV (12:40)
[2021-05-17 12:53] LABS: Mucous, Urine 0 SEEN /hpf (<or=2+)
[2021-05-17 12:59] LABS: Color, Urine Yellow (Yellow); Glucose, Dipstick Normal (Normal); Ketone-Dipstick 15 mg/dl (Negative); Leukocyte Esterase-Dipstick 100 /ul (Negative); Nitrite-Dipstick Negative (Negative); Occult Blood-Urine 25 /ul (Negative); Protein-Dipstick 30 mg/dl (Negative); Specific Gravity, Urine 1.025 (1.002-1.030); Urine Bilirubin Dipstick Negative (Negative); Urine Clarity Clear (Clear); Urine Urobilinogen Normal (Normal)
[2021-05-17 13:13] LABS: Bacteria 1+ /hpf (None Seen); Calcium Oxalate Crystals Ur 1+ /hpf (<or=2+); Red Blood Cells-Urine 0-5 SEEN /hpf (0-5); Squamous Epithelial Cells - UA 0-5 SEEN /hpf (5-10); White Blood Cells 0-5 SEEN /hpf (0-5)
[2021-05-17 13:41] VITALS: BP 112/68; PULSE 97; RESP 18; TEMP 37.2; O2SAT 99
[2021-05-20 15:03] LABS: Pathologist Review Reviewed
== END 2021-05-17 14:10 | disposition home or self-care (01) ==
PROVIDERS: Emergency Provider Emergency Medicine; PCP Family Medicine
DX: R25.2 Cramp and spasm (principal); I48.20 Chronic atrial fibrillation, unspecified; I10 Essential (primary) hypertension; M06.9 Rheumatoid arthritis, unspecified; Z79.01 Long term (current) use of anticoagulants; Z79.52 Long term (current) use of systemic steroids; Z79.899 Other long term (current) drug therapy; Z86.73 Personal history of transient ischemic attack (TIA), and cerebral infarction without residual deficits
CPT/HCPCS: 71045; 80053; 81001; 83690; 84484; 85025; 87426; 93005; 96360; 99285; J7030; A4216

== ENCOUNTER 2021-06-18 12:00 | Emergency (ER) | payer MEDICARE, OTHER, SELFPAY ==
[2021-06-18 12:00] VITALS: BP 146/82; PULSE 114; RESP 28; TEMP 37.1; O2SAT 96; BMI 22.6
[2021-06-18 12:04] VITALS: BP 146/82; PULSE 114; RESP 28; TEMP 37.1; O2SAT 96
--- NOTE | 2021-06-18 12:19 | RAD_ITS ---
STUDY: X-RAY CHEST REASON FOR EXAM: Female, 85 years old. WEAKNESS TECHNIQUE: AP COMPARISON: 05/17/2021 FINDINGS: EKG leads project over the chest. Patchy ill-defined opacities in the left lung base adjacent to left heart border and in the right lung base, new since the prior study. There is no demonstrated pleural abnormality. There is mild cardiac enlargement. Normal mediastinum and allyson. Normal visualized pulmonary arteries. There is atherosclerotic calcification of the aortic arch with tortuosity. There is demineralization of the osseous structures. Normal visualized ribs, clavicles, and shoulders. There is no demonstrated abnormality of the visualized soft tissue structures of the upper abdomen. RAD/Chest PA and Lateral IMPRESSION: 1. Early bibasilar infiltrates suggesting pneumonia. Electronically Signed: Felipe Farrar MD ([place]) at 12:52 EST , Service support ,
[2021-06-18 12:26] VITALS: O2SAT 96
[2021-06-18 12:37] LABS: Absolute Neutrophil Count 3.1 X10^3/uL (2.0-7.7); Basophil# 0.03 X10^3/uL; Basophil% 0.8 % (0-1); Eosinophil# 0.06 X10^3/uL; Eosinophils% 1.5 % (0-5); Hemoglobin 10.3 g/dL (12.0-15.0); Lymphocyte % 7.7 % (19-41); Mean Corp Hgb Conc 33.2 g/dL (32-36); Mean Corpuscular Hgb 31.9 pg (27.0-32.0); Mean Platelet Vol. 10.5 fl (6.2-12.0); Monocyte# 0.33 X10^3/uL; Monocyte% 8.4 % (0-10); NRBC Flagged by Analyzer 0 % (0-5); Neutrophil # 3.11 X10^3/uL (2.7-7.7); Neutrophil % 79.3 % (47-70); POSITIVE DIFFERENTIAL YES; Platelet Count 186 K/mm3 (150-450); RBC Distribution Width CV 15.3 % (11.6-14.6); RBC Distribution Width SD 52.4 fl (35.1-43.9); Red Blood Count 3.23 M/mm3 (4.2-5.4); White Blood Count 3.9 K/mm3 (4.4-11.0)
[2021-06-18 12:40] LABS: Differential Indicated SCAN CRITERIA MET
[2021-06-18 12:51] LABS: ALB/GLOB Ratio 0.6 RATIO (0.9-2.4); AST(SGOT) 41 U/L (15-37); Alanine Aminotransfer ALT/SGPT 26 U/L (13-56); Albumin, Serum 2.4 g/dL (3.2-5.0); Alkaline Phosphatase 64 U/L (45-117); Anion Gap 8 (5-15); BUN 12 mg/dL (7-18); BUN/Creat Ratio 14.6 RATIO (10-20); Chloride 103 mmol/L (98-107); Creatinine, Serum 0.82 mg/dL (0.55-1.02); EST Glomerular Filtration Rate 71 mL/min (>60); Est Glom Filt Rate - Afr Amer 85 mL/min (>60); Estimated Creatinine Clearance 44.89 ml/min; Globulin 3.8 g/dL (2.2-4.2); Glucose 99 mg/dL (74-106); Lactic Acid 1.8 mmol/L (0.4-1.9); Potassium 4.5 mmol/L (3.5-5.1); Protein, Total 6.2 g/dL (6.4-8.2); Sodium Level 137 mmol/L (136-145)
[2021-06-18 12:58] LABS: Differential Comment SCANNED
[2021-06-18] MEDS: 0.9% Normal Saline 1,000 ML 50 ML IV (13:45)
[2021-06-18 13:46] VITALS: BP 138/74; PULSE 115; RESP 14; TEMP 36.6; O2SAT 96
--- NOTE | 2021-06-18 13:57 | EX.ED.DYSGE1 ---
HPI History of Present Illness Chief Complaint: Weakness Informant: patient Narrative Narrative: Patient presents with generalized weakness. She had Covid back in April. She had a little cough and nausea with that. However she states overall she did reasonably well. But she just has not recovered her energy. She still feels tired and worn out. She has had decreased appetite. She occasionally gets nauseated. The symptoms wax and wane. Last night she did eat mashed potatoes and gravy and felt good. Her states that since she is not better after a month she should get evaluated. She admits to not getting her meds this morning before she came in but she has been generally taking her meds. She denies any chest pain or trouble breathing or abdominal pain. She had some mild soft stool but no diarrhea. She denies urinary symptoms. [facility] Medical History Anemia CAP (community acquired pneumonia) Cardiac dysrhythmia Chronic a-fib COVID Essential hypertension Failure to thrive Lower extremity pain, left Nausea and vomiting Non-rheumatic tricuspid valve insufficiency Nonrheumatic mitral (valve) stenosis Nonrheumatic mitral valve regurgitation Osteopenia Persistent atrial fibrillation Rheumatoid arthritis Rheumatoid arthritis Rheumatoid arthritis Sepsis associated hypotension Squamous cell carcinoma of skin Stroke Viral myocarditis Home Medications metoprolol succinate 100 mg PO DAILY 05/03/13 [History Last Taken 02/13/21] alendronate 70 mg tablet 70 mg PO FR 07/10/17 [History Last Taken 02/08/21] leucovorin calcium 5 mg tablet 5 mg PO MO tab 07/13/17 [History Last Taken 02/11/21] cholecalciferol (vitamin D3) 25 mcg (1,000 unit) tablet 25 mcg PO DAILY 03/05/20 [History Last Taken 02/13/21] methotrexate sodium 2.5 mg tablet 20 mg PO ARAUJO tab 03/05/20 [History Last Taken 02/10/21] apixaban 5 mg PO BID 06/28/20 [History Last Taken 02/14/21] atorvastatin 40 mg PO QHS 06/28/20 [History Last Taken 02/13/21] diltiazem HCl 180 mg PO DAILY #30 cap 02/16/21 [Rx Last Taken Unknown] prednisone 5 mg tablet 5 mg PO Q OTHER DAY tab 03/12/21 [History Last Taken Unknown] ramipril 10 mg capsule 10 mg PO DAILY #90 cap 03/12/21 [Rx Last Taken Unknown] albuterol sulfate [Ventolin HFA] 2 puff INHALATION Q4H PRN PRN #1 inhaler 05/17/21 [Rx Last Taken Unknown] dexamethasone 6 mg PO DAILY #7 tab 05/17/21 [Rx Last Taken Unknown] aspirin [Aspir-81] 81 mg PO DAILY 06/18/21 [History Last Taken Unknown] ondansetron 4 mg PO Q8H PRN #10 tab 06/18/21 [Rx Last Taken Unknown] sertraline 50 mg PO DAILY 06/18/21 [History Last Taken Unknown] Allergy/AdvReac Type Severity Reaction Status Date / Time doxycycline AdvReac Severe GI Upset Verified 06/18/21 12:08 hydrochlorothiazide AdvReac Unknown Unknown Verified 06/18/21 12:08 tramadol HCl [From Ultram] AdvReac Vomiting Verified 06/18/21 12:08 Family History Mother Heart disease Hypertension Father Cancer lung Surgical History History of breast biopsy History of carpal tunnel release of both wrists History of hip replacement, total History of knee replacement Social History Smoking Status: Never smoker alcohol intake: never substance use type: does not use caffeine: Yes Type: tea Number of servings: 3 ROS ROS ED Constitutional Constitutional ED: Denies chills, fever(s) or weight loss Eyes Eyes: Denies blurry vision ENT ENT ED: Denies rhinorrhea or sore throat Cardiovascular Cardiovascular: Denies chest pain, palpitations or racing heartbeat Respiratory/Chest Respiratory/Chest: Reports cough; Denies dyspnea, dyspnea on exertion or sputum Gastrointestinal Gastrointestinal: Reports nausea and other Details: Patient is had a small amount of vomitus once or twice but is not nauseated now. She has had a couple soft stools but no blood and not consistent diarrhea. ; Denies abdominal pain, constipation or melena Genitourinary Genitourinary ED: Denies dysuria or hematuria Musculoskeletal Musculoskeletal: Denies arthralgias or myalgias Integumentary Denies rash Neurologic Neurologic: Reports other Details: Generalized with no focal weakness. ; Denies headache(s) Endocrine Endocrinology: Denies polydipsia or polyuria Allergic/Immunologic Allergic/Immunologic ED: Denies mouth swelling or urticaria EXAM Physical Exam Const Vital Signs: 06/18/21 12:00 06/18/21 12:04 06/18/21 12:13 Temperature 98.8 F 98.8 F Temperature Source Oral Oral Pulse Rate 114 H 114 H Respiratory Rate 28 H 28 H Respiratory Effort Normal Non-Labored Blood Pressure 146/82 H 146/82 H Blood Pressure Mean 103 103 Pulse Ox 96 96 Oxygen Delivery Method Room Air Room Air 06/18/21 12:26 06/18/21 13:46 06/18/21 14:30 Temperature 98 F Temperature Source Temporal Pulse Rate 115 H 121 H Respiratory Rate 14 22 H Respiratory Effort Blood Pressure 138/74 H 132/96 H Blood Pressure Mean 95 108 Pulse Ox 96 96 97 Oxygen Delivery Method Room Air Room Air Room Air 06/18/21 15:21 Temperature Temperature Source Pulse Rate 109 H Respiratory Rate 24 H Respiratory Effort Blood Pressure 143/79 H Blood Pressure Mean 100 Pulse Ox 96 Oxygen Delivery Method Room Air Positive well nourished and well developed General Appearance ED: well developed and NAD; Negative for cyanotic or diaphoretic HEENT Reports dry mucous membranes Mouth ED: Yes dry mucous membranes Mouth: dry mucous membranes Eyes General Eye ED: Negative for pale conjunctiva or scleral icterus Neck no JVD Chest Wall inspection of chest normal Resp normal respiratory effort and clear to auscultation bilaterally Effort and Inspection: Negative for pain with movement Auscultation: Negative for rales, rhonchi or wheezes Cardio Negative for regular rate or regular rhythm Rate: tachycardic Rhythm: abnormal rhythm GI normal to inspection, nondistended, normoactive bowel sounds, non-tender and non-distended Palpation: soft Back/Spine no CVA tenderness Neuro oriented x3 Sensorium / Orientation: alert Psych mental status grossly normal Mood & Affect: Negative for depressed or tearful Skin no rashes or lesions noted and no wounds MDM MDM MDM Narrative Medical decision making narrative: Patient's urinalysis shows no significant signs of infection. White count is coming up. Patient has mild anemia but that is really her baseline. Lactate is normal. Patient's labs show overall normal electrolytes. She has a slight bump in her total bilirubin but is not jaundiced and having no right upper quadrant pain. Transaminases show no marked abnormalities. This may be a response to her recent viral infection. Patient was given IV fluids here. She states she has not been drinking as much. She feels better now. She is drinking fluids. Nausea is better. She would like to go home. I think this is reasonable. Patient has some basilar changes in her lungs but her pulmonary symptoms have resolved from her Covid. I think this is more likely related to that. I do not think she warrants antibiotics at this time. She is already on apixaban because the A. fib. Her heart rate is now down to about 95 after her metoprolol. She did not get her metoprolol or diltiazem in today. She will take those meds at home. I will write for Sanjuana. If she develops fever, recurrent vomiting, pains or any other concerns she should return. At this point I do not think she needs admission. She does not want to be admitted and would like to go home. I think this is a reasonable plan. Lab Data Attestation: I reviewed the patient's lab results. Labs: Laboratory Results - last 24 hr 06/18/21 06/18/21 06/18/21 12:15 12:15 12:15 WBC 3.9 L RBC 3.23 L Hgb 10.3 L Hct 31.0 L MCV 96.0 MCH 31.9 MCHC 33.2 RDW Std Deviation 52.4 H RDW Coeff of Matt 15.3 H Plt Count 186 MPV 10.5 Immature Gran % (Auto) 2.300 H Neut % (Auto) 79.3 H Lymph % (Auto) 7.7 L Harvey % (Auto) 8.4 Eos % (Auto) 1.5 Baso % (Auto) 0.8 Absolute Neuts (auto) 3.1 Absolute Lymphs (auto) 0.30 L Nucleated RBC % 0 Differential Comment SCANNED Diff Path Review May foll Sodium 137 Potassium 4.5 Chloride 103 Carbon Dioxide 26.0 Anion Gap 8 BUN 12 Creatinine 0.82 Estim Creat Clear Calc 44.89 Est GFR (MDRD) Af Amer 85 Est GFR (MDRD) Non-Af 71 BUN/Creatinine Ratio 14.6 Glucose 99 Lactic Acid 1.8 Calcium 8.0 L Total Bilirubin 1.30 H AST 41 H ALT 26 Alkaline Phosphatase 64 Troponin I High Sens Total Protein 6.2 L Albumin 2.4 L Globulin 3.8 Albumin/Globulin Ratio 0.6 L Urine Color Urine Clarity Urine pH Ur Specific [place] Urine Protein Urine Glucose (UA) Urine Ketones Urine Occult Blood Urine Nitrite Urine Bilirubin Urine Urobilinogen Ur Leukocyte Esterase Urine RBC Urine WBC Ur Squamous Epith Cells Urine Bacteria Urine Mucus 06/18/21 06/18/21 12:15 14:40 WBC RBC Hgb Hct MCV MCH MCHC RDW Std Deviation RDW Coeff of Matt Plt Count MPV Immature Gran % (Auto) Neut % (Auto) Lymph % (Auto) Harvey % (Auto) Eos % (Auto) Baso % (Auto) Absolute Neuts (auto) Absolute Lymphs (auto) Nucleated RBC % Differential Comment Diff Path Review Sodium Potassium Chloride Carbon Dioxide Anion Gap BUN Creatinine Estim Creat Clear Calc Est GFR (MDRD) Af Amer Est GFR (MDRD) Non-Af BUN/Creatinine Ratio Glucose Lactic Acid Calcium Total Bilirubin AST ALT Alkaline Phosphatase Troponin I High Sens 46 Total Protein Albumin Globulin Albumin/Globulin Ratio Urine Color Yellow Urine Clarity Sl. Cloudy Urine pH 5.0 Ur Specific [place] 1.020 Urine Protein 30 H Urine Glucose (UA) Normal Urine Ketones 5 H Urine Occult Blood 25 H Urine Nitrite Negative Urine Bilirubin Negative Urine Urobilinogen 1 H Ur Leukocyte Esterase 25 H Urine RBC 0-5 SEEN Urine WBC 0-5 SEEN Ur Squamous Epith Cells 5-10 SEEN Urine Bacteria 1+ Urine Mucus 1+ Radiography Diagnostic Testing: Clinical Impression(s) from Imaging Studies Chest X-Ray 06/18/21 12:19 IMPRESSION: 1. Early bibasilar infiltrates suggesting pneumonia. Electronically Signed: Felipe Farrar MD (Brooks) at 12:52 EST , Service support , Discharge Plan Triage Chief Complaint: Weakness ED Provider: Judd Marvin Dx/Rx/DC Orders Clinical Impression: Nausea, History of 2019 novel coronavirus disease (COVID-19) Instructions: ED Weakness (Uncertain Cause) Prescriptions: New ondansetron 4 mg tablet,disintegrating 4 mg PO Q8H PRN (Reason: nausea and vomiting) Qty: 10 RF: 0 No Action leucovorin calcium 5 mg tablet 5 mg PO MO RF: 0 alendronate 70 mg tablet 70 mg PO FR RF: 0 cholecalciferol (vitamin D3) 25 mcg (1,000 unit) tablet 25 mcg PO DAILY RF: 0 prednisone 5 mg tablet 5 mg PO Q OTHER DAY RF: 0 ramipril 10 mg capsule 10 mg PO DAILY Qty: 90 RF: 3 metoprolol succinate 100 MG tablet 100 mg PO DAILY RF: 0 methotrexate sodium 2.5 mg tablet 20 mg PO ARAUJO RF: 0 atorvastatin 40 MG tablet 40 mg PO QHS RF: 0 apixaban 5 MG tablet 5 mg PO BID RF: 0 diltiazem HCl 180 mg Capsule,Extended Release 24hr 180 mg PO DAILY Qty: 30 RF: 0 dexamethasone 6 MG tablet 6 mg PO DAILY Qty: 7 RF: 0 albuterol sulfate [Ventolin HFA] 1 INHALER inhaler 2 puff inhalation Q4H PRN PRN (Reason: Wheezing) Qty: 1 RF: 0 aspirin [Aspir-81] 81 mg Tablet,Delayed Release (Dr/Ec) 81 mg PO DAILY RF: 0 sertraline 50 mg Tablet 50 mg PO DAILY RF: 0 Primary Care Provider: Delfin Kamara Referrals: Delfin Kamara MD [Primary Care Provider] - 3-5 Days if not improving Disposition Disposition: Home, Self Care
[2021-06-18 14:30] VITALS: BP 132/96; PULSE 121; RESP 22; O2SAT 97
[2021-06-18 14:34] LABS: Troponin-I HS 46 pg/mL (3.0-54.0)
[2021-06-18] MEDS: Ondansetron 4 MG/2 ML Vial IV (14:36)
[2021-06-18] MEDS: Metoprolol Tartrate 5 MG/5 ML Vial IV ×2 (14:37→15:22)
[2021-06-18 15:03] LABS: Color, Urine Yellow (Yellow); Glucose, Dipstick Normal (Normal); Ketone-Dipstick 5 mg/dl (Negative); Leukocyte Esterase-Dipstick 25 /ul (Negative); Nitrite-Dipstick Negative (Negative); Occult Blood-Urine 25 /ul (Negative); Protein-Dipstick 30 mg/dl (Negative); Urine Bilirubin Dipstick Negative (Negative); Urine Clarity Sl. Cloudy (Clear); Urine Urobilinogen 1 mg/dl (Normal)
[2021-06-18 15:13] LABS: Bacteria 1+ /hpf (None Seen); Mucous, Urine 1+ /hpf (<or=2+); Red Blood Cells-Urine 0-5 SEEN /hpf (0-5); Squamous Epithelial Cells - UA 5-10 SEEN /hpf (5-10); White Blood Cells 0-5 SEEN /hpf (0-5)
[2021-06-18 15:21] VITALS: BP 143/79; PULSE 109; RESP 24; O2SAT 96
[2021-06-19 15:37] LABS: Pathologist Review Reviewed
== END 2021-06-18 16:19 | disposition home or self-care (01) ==
PROVIDERS: Emergency Medicine; Emergency Provider Emergency Medicine; PCP Family Medicine
DX: R11.0 Nausea (principal); I48.19 Other persistent atrial fibrillation; M06.9 Rheumatoid arthritis, unspecified; I10 Essential (primary) hypertension; Z79.01 Long term (current) use of anticoagulants; Z79.82 Long term (current) use of aspirin; Z79.52 Long term (current) use of systemic steroids; Z79.899 Other long term (current) drug therapy; Z86.16 Personal history of COVID-19
CPT/HCPCS: 71046; 80053; 81001; 83605; 84484; 85025; 87040; 94760; 96361; 96374; 96375; 96376; 99285; J7030; A4216; J2405

== ENCOUNTER 2021-06-20 12:49 | Emergency (ER) | payer MEDICARE, OTHER, SELFPAY ==
[2021-06-20] VITALS (8 sets, daily range): BP systolic 102–123; BP diastolic 55–103; PULSE 85–132; RESP 24–29; TEMP 36.6; O2SAT 96; BMI 23.6
--- NOTE | 2021-06-20 12:51 | CM.ED ---
RODERICK Note Referral Source: Kyara Ratliff Referral Reason: Discharge planning SW received call from Kyara Ratliff, Director. She reports she received a call from Joann Roma, daughter in law of patient. Joann was in the room with patient's 2 son's Mark and Mikhail. Kyara said that patient Elizabeth was diagnosed with COVID the day after thanksgi (confirmed via charting on 05/17 per CM Dietary Tech). Patient was seen and discharged home and since she has been home she has been experiencing diarrhea, dehydrated, more weakness and all she does is lay in bed. Patient uses a wheelchair to go from bed to bathroom but she has been having difficulty with that recently as she has difficulty getting out of bed. Patient resides with her spouse who has his own health issues and adult son, who works and is not able to be present all the time due to his work. Family reports that they feel patient is not safe at home and needs a SNF. However, family said that they are unsure if patient would agree to go to SNF. Family said that patient's spouse is unable to provide help. Family said that their first choice for SNF is [facility] and then any other that is available. SW will update medical team. Plan: SONIDO Roman
--- NOTE | 2021-06-20 12:56 | ED.RN ---
PT REQUESTS TO STAY IN [facility] BECAUSE THEY ARE WARM[facility].
--- NOTE | 2021-06-20 13:20 | RAD_ITS ---
STUDY: X-RAY CHEST REASON FOR EXAM: Female, 85 years old. CHEST PAIN chest pain TECHNIQUE: XR Chest 1 View COMPARISON: Two days ago. FINDINGS: There are bilateral infiltrates. This appears worse. Elevated right humeral head with eburnation of the acromion suggest a chronic rotator cuff tear. Normal size heart. Normal mediastinum and allyson. Normal visualized pulmonary arteries. There is atherosclerotic calcification of the aortic arch with tortuosity. There are diffuse degenerative changes of the visualized thoracic spine. There is degenerative osteoarthritis of the bilateral shoulders. There is no demonstrated abnormality of the visualized soft tissue structures of the upper abdomen. RAD/Chest 1 View (Portable) IMPRESSION: Pulmonary findings appear worse. Electronically Signed: Rei Gee MD at 14:10 EST , Service support ,
--- NOTE | 2021-06-20 13:20 | EKG12_ITS ---
Test Reason : Blood Pressure : / mmHG Vent. Rate : 123 BPM Atrial Rate : 131 BPM P-R Int : 000 ms QRS Dur : 090 ms QT Int : 278 ms P-R-T Axes : 000 056 247 degrees QTc Int : [address] & T wave abnormality, consider inferior ischemia ST & T wave abnormality, consider anterolateral ischemia Abnormal ECG Confirmed by DINORA GALAN, KVNG ([id number]), news copy editor KENDRA MCKEON ([id number]) on 06/26/2021 10:53:31 AM Referred By: MR Confirmed By:KVNG FARIAS MD
--- NOTE | 2021-06-20 13:24 | EX.ED.DYSGE1 ---
HPI History of Present Illness Chief Complaint: Weakness Narrative Narrative: 85-year-old female presenting with generalized weakness and fatigue. She states has been rundown since she had Covid about a month and a half ago. Patient states she has some diarrhea and she has decreased p.o. intake. She states that she has not discussed this with her primary care over this course of time. She has been to the hospital a couple of times. She does not want to go to a custodial facility. Her family did call social work prior to her arrival and expressed concern that she was unable to walk or care for herself. She is not eating or drinking. Family wishes her to go to a custodial facility, however the patient states that she does not want to. She states that her is helping her. Family is expressing that they cannot care for her when they are working during the day and that her is not able to significantly care for her. [facility] Medical History Anemia CAP (community acquired pneumonia) Cardiac dysrhythmia Chronic a-fib COVID Essential hypertension Failure to thrive Lower extremity pain, left Nausea and vomiting Non-rheumatic tricuspid valve insufficiency Nonrheumatic mitral (valve) stenosis Nonrheumatic mitral valve regurgitation Osteopenia Persistent atrial fibrillation Rheumatoid arthritis Rheumatoid arthritis Rheumatoid arthritis Sepsis associated hypotension Squamous cell carcinoma of skin Stroke Viral myocarditis Home Medications metoprolol succinate 100 mg PO DAILY 05/03/13 [History Last Taken 02/13/21] alendronate 70 mg tablet 70 mg PO FR 07/10/17 [History Last Taken 02/08/21] leucovorin calcium 5 mg tablet 5 mg PO MO tab 07/13/17 [History Last Taken 02/11/21] cholecalciferol (vitamin D3) 25 mcg (1,000 unit) tablet 25 mcg PO DAILY 03/05/20 [History Last Taken 02/13/21] methotrexate sodium 2.5 mg tablet 20 mg PO ARAUJO tab 03/05/20 [History Last Taken 02/10/21] apixaban 5 mg PO BID 06/28/20 [History Last Taken 02/14/21] atorvastatin 40 mg PO QHS 06/28/20 [History Last Taken 02/13/21] prednisone 5 mg tablet 5 mg PO Q OTHER DAY tab 03/12/21 [History Last Taken Unknown] albuterol sulfate [Ventolin HFA] 2 puff INHALATION Q4H PRN PRN #1 inhaler 05/17/21 [Rx Last Taken Unknown] aspirin [Aspir-81] 81 mg PO DAILY 06/18/21 [History Last Taken Unknown] ondansetron 4 mg PO Q8H PRN #10 tab 06/18/21 [Rx Last Taken Unknown] sertraline 50 mg PO DAILY 06/18/21 [History Last Taken Unknown] diltiazem HCl 180 mg PO DAILY 06/20/21 [History Last Taken Unknown] ramipril 10 mg PO DAILY 06/20/21 [History Last Taken Unknown] Allergy/AdvReac Type Severity Reaction Status Date / Time doxycycline AdvReac Severe GI Upset Verified 06/20/21 12:54 hydrochlorothiazide AdvReac Unknown Unknown Verified 06/20/21 12:54 tramadol HCl [From Ultram] AdvReac Vomiting Verified 06/20/21 12:54 Family History Mother Heart disease Hypertension Father Cancer lung Surgical History History of breast biopsy History of carpal tunnel release of both wrists History of hip replacement, total History of knee replacement Social History (Updated 06/20/21 @ 19:[address] Fish Krause MD) household members: spouse Smoking Status: Never smoker alcohol intake: never substance use type: does not use caffeine: Yes Type: tea Number of servings: 3 ROS ROS ED ROS Narrative Generalized weakness Constitutional Constitutional ED: Denies chills or fever(s) Eyes Eyes: Denies blurry vision or diplopia Cardiovascular Cardiovascular: Denies chest pain or palpitations Respiratory/Chest Respiratory/Chest: Reports cough and dyspnea Gastrointestinal Gastrointestinal: Reports other Details: Decreased p.o. intake ; Denies abdominal pain Genitourinary Genitourinary ED: Denies dysuria or hematuria Musculoskeletal Musculoskeletal: Denies arthralgias or myalgias Integumentary Denies rash Neurologic Neurologic: Denies headache(s) Psychiatric Psychiatric: Denies depression EXAM Physical Exam Const Vital Signs: 06/20/21 12:51 06/20/21 12:54 06/20/21 12:55 Temperature 98 F Temperature Source Temporal Pulse Rate 127 H 132 H Respiratory Rate 25 H Respiratory Effort Short of Breath Respiratory Pattern Normal Blood Pressure 121/103 H Blood Pressure Mean 109 Pulse Ox 96 Oxygen Delivery Method Nasal Cannula Oxygen Flow Rate (L/min) 2 06/20/21 13:25 06/20/21 14:51 06/20/21 15:06 Temperature Temperature Source Pulse Rate 110 H 119 H Respiratory Rate 24 H Respiratory Effort Respiratory Pattern Blood Pressure 123/73 H Blood Pressure Mean 89 Pulse Ox 96 Oxygen Delivery Method Room Air Oxygen Flow Rate (L/min) 06/20/21 15:07 06/20/21 15:08 06/20/21 16:32 Temperature Temperature Source Pulse Rate 112 H 86 85 Respiratory Rate 25 H 29 H Respiratory Effort Respiratory Pattern Blood Pressure 103/55 L 102/77 Blood Pressure Mean 71 Pulse Ox Oxygen Delivery Method Oxygen Flow Rate (L/min) Positive well nourished General Appearance ED: NAD; Negative for cyanotic, diaphoretic or pallor HEENT Reports moist mucous membranes Negative for trauma Eyes PERRL and EOMs intact bilaterally Resp normal respiratory effort and clear to auscultation bilaterally Cardio Rate: tachycardic Rhythm: abnormal rhythm irregularly irregular GI normal to inspection, nondistended, normoactive bowel sounds Neuro oriented x3 and CN's II-XII intact bilaterally Sensorium / Orientation: alert Psych mental status grossly normal Skin General Skin Exam: Negative for jaundice or pallor MDM MDM MDM Narrative Medical decision making narrative: I did do blood work on the patient and she does not have a white blood cell count. Hemoglobin is stable at 7.3. Platelet count is normal. Renal function and electrolytes are normal. Total bilirubin slightly elevated 1.5. Her LFTs are normal. Chest x-ray again shows pulmonary infiltrates on my interpretation and the radiologist does feel these are worse however the patient is maintaining her O2 saturations from 94 to 96% on room air. Patient was discussed with social work and dialysis social worker did speak to her and her family and overall they felt she was too debilitated to go home and she was amenable to staying in the TCU for short time. This was arranged for her. Patient is transported in stable condition. Impression: 1. History of COVID-19 2. Debility Lab Data Attestation: I reviewed the patient's lab results. Labs: Laboratory Results - last 24 hr 12/30/21 12/30/21 13:35 13:35 WBC 6.4 RBC 3.33 L Hgb 10.3 L Hct 30.4 L MCV 91.3 MCH 30.9 MCHC 33.9 RDW Std Deviation 49.9 H RDW Coeff of Matt 15.3 H Plt Count 292 MPV 10.1 Immature Gran % (Auto) 1.100 H Neut % (Auto) 80.8 H Lymph % (Auto) 7.5 L [place] % (Auto) 9.2 Eos % (Auto) 0.8 Baso % (Auto) 0.6 Absolute Neuts (auto) 5.2 Absolute Lymphs (auto) 0.48 L Nucleated RBC % 0 Differential Comment SEE COMMENT Platelet Estimate ADEQUATE RBC Morphology N CHROM Anisocytosis RARE Macrocytosis RARE Ovalocytes RARE Crenated Cell RARE Sodium 134 L Potassium 3.8 Chloride 104 Carbon Dioxide 22.0 Anion Gap 8 BUN 14 Creatinine 0.74 Estim Creat Clear Calc 35.26 Est GFR (MDRD) Af Amer 96 Est GFR (MDRD) Non-Af 79 BUN/Creatinine Ratio 18.9 Glucose 92 Calcium 7.7 L Total Bilirubin 1.50 H AST 33 ALT 22 Alkaline Phosphatase 59 Troponin I High Sens 50 Total Protein 5.3 L Albumin 2.1 L Globulin 3.2 Albumin/Globulin Ratio 0.7 L Radiography Diagnostic Testing: Clinical Impression(s) from Imaging Studies Chest X-Ray 06/20/21 13:20 IMPRESSION: Pulmonary findings appear worse. Electronically Signed: Rei Gee MD at 14:10 EST , Service support , Discharge Plan Triage Chief Complaint: Weakness ED Provider: Juan Carlos Hdz Dx/Rx/DC Orders Instructions: ED Weakness (Uncertain Cause) Prescriptions: No Action leucovorin calcium 5 mg tablet 5 mg PO MO RF: 0 alendronate 70 mg tablet 70 mg PO FR RF: 0 cholecalciferol (vitamin D3) 25 mcg (1,000 unit) tablet 25 mcg PO DAILY RF: 0 prednisone 5 mg tablet 5 mg PO Q OTHER DAY RF: 0 metoprolol succinate 100 MG tablet 100 mg PO DAILY RF: 0 methotrexate sodium 2.5 mg tablet 20 mg PO ARAUJO RF: 0 atorvastatin 40 MG tablet 40 mg PO QHS RF: 0 apixaban 5 MG tablet 5 mg PO BID RF: 0 albuterol sulfate [Ventolin HFA] 1 INHALER inhaler 2 puff inhalation Q4H PRN PRN (Reason: Wheezing) Qty: 1 RF: 0 aspirin [Aspir-81] 81 mg Tablet,Delayed Release (Dr/Ec) 81 mg PO DAILY RF: 0 sertraline 50 mg Tablet 50 mg PO DAILY RF: 0 ondansetron 4 mg tablet,disintegrating 4 mg PO Q8H PRN (Reason: nausea and vomiting) Qty: 10 RF: 0 diltiazem HCl 180 mg capsule,extended release 24hr 180 mg PO DAILY RF: 0 ramipril 10 mg capsule 10 mg PO DAILY RF: 0 Primary Care Provider: Delfin Kamara Referrals: Delfin Kamara MD [Primary Care Provider] - Disposition Disposition: Long-Term Facility Discharge Location: [facility] Transitional Care Unit Discharge Date/Time: 06/20/21 16:52
[2021-06-20] MEDS: Aspirin 81 MG TAB.CHEW 324 MG PO (13:35)
[2021-06-20 13:57] LABS: ALB/GLOB Ratio 0.7 RATIO (0.9-2.4); AST(SGOT) 33 U/L (15-37); Alanine Aminotransfer ALT/SGPT 22 U/L (13-56); Albumin, Serum 2.1 g/dL (3.2-5.0); Alkaline Phosphatase 59 U/L (45-117); Anion Gap 8 (5-15); BUN 14 mg/dL (7-18); BUN/Creat Ratio 18.9 RATIO (10-20); Calcium,Total 7.7 mg/dL (8.5-10.1); Chloride 104 mmol/L (98-107); Creatinine, Serum 0.74 mg/dL (0.55-1.02); EST Glomerular Filtration Rate 79 mL/min (>60); Est Glom Filt Rate - Afr Amer 96 mL/min (>60); Estimated Creatinine Clearance 35.26 ml/min; Globulin 3.2 g/dL (2.2-4.2); Glucose 92 mg/dL (74-106); Potassium 3.8 mmol/L (3.5-5.1); Protein, Total 5.3 g/dL (6.4-8.2); Sodium Level 134 mmol/L (136-145); Troponin-I HS 50 pg/mL (3.0-54.0)
--- NOTE | 2021-06-20 14:20 | CM.ED ---
Addendum entered by Jonelle Wilson 06/20/21 17:10: RODERICK had advised MD to include PT/OT discharge prescription/orders on discharge orders however, RODERICK noted that they were not included on the discharge. RODERICK wrote the addendum for PT/OT at discharge and MD Hdz signed the discharge paperwork with the PT/OT discharge order. RODERICK called TCU and explained the sitaution to staff air tactical officer and she checked with staff and they indicated that was fine. No additional needs voiced. Jonelle LYN Original Note: RODERICK Note RODERICK met with patient. RODERICK discussed discharge options. Patient said that she lives with and son. Patient said that she wants to go home. Patient was able to voice that she has been weak. SW provided emotional support. Patient was asked about [facility] and she said that she did not want [facility]. Patient was open to information about TCU and a brochure about TCU was provided to her. Patient was in agreement with referral to TCU. RODERICK made referral to TCU and spoke to Patricia. Patricia advised that since patient had covid she does not need a covid test. RODERICK spoke to Patricia and Patricia said that patient is appropriate for TCU. Patricia said that the discharge should include follow up OT/PT at discharge. RODERICK spoke to patient at length regarding family concerns. Patient called her son, Mikhail and patient then agreed to go to TCU. On the phone patient voiced concern about her while patient is in TCU. Patient agreed to TCU today. RODERICK spoke to Mikhail and updated him regarding plan for patient. He was appreciative of patient going to TCU at discharge. Mikhail was provided with TCU phone number. No concerns regarding placement voiced by Mikhail and he stated that the goal is patient to get stronger and go back home at discharge. RODERICK updated . is waiting on test results for patient but plan is TCU at discharge from ED. RODERICK updated Patricia that patient is still in ED but waiting on test results. She advised that RODERICK Hernandez, Dr Krause and staff were aware that patient is coming to TCU when medically cleared. RODERICK called Mary who confirmed that days 1-20 are covered at 100% and 21-100 at 80%. Plan: TCU Jonelle LYN
[2021-06-20] MEDS: dilTIAZem 25 MG/5 ML Vial 20 MG IV BOLUS (15:05)
[2021-06-20 15:47] LABS: Absolute Lymphocyte Count 0.48 X10^3/uL (0.83-4.51); Absolute Neutrophil Count 5.2 X10^3/uL (2.0-7.7); Basophil# 0.04 X10^3/uL; Basophil% 0.6 % (0-1); Eosinophil# 0.05 X10^3/uL; Eosinophils% 0.8 % (0-5); Hematocrit 30.4 % (37-47); Hemoglobin 10.3 g/dL (12.0-15.0); Lymphocyte # 0.48 X10^3/ul (0.83-4.51); Lymphocyte % 7.5 % (19-41); Mean Corp Hgb Conc 33.9 g/dL (32-36); Mean Corpuscular Hgb 30.9 pg (27.0-32.0); Mean Corpuscular Volume 91.3 fL (81-99); Mean Platelet Vol. 10.1 fl (6.2-12.0); Monocyte# 0.59 X10^3/uL; Monocyte% 9.2 % (0-10); NRBC Flagged by Analyzer 0 % (0-5); Neutrophil % 80.8 % (47-70); POSITIVE DIFFERENTIAL YES; Platelet Count 292 K/mm3 (150-450); RBC Distribution Width CV 15.3 % (11.6-14.6); RBC Distribution Width SD 49.9 fl (35.1-43.9); Red Blood Count 3.33 M/mm3 (4.2-5.4); White Blood Count 6.4 K/mm3 (4.4-11.0)
[2021-06-20 16:10] LABS: Differential Indicated SCAN CRITERIA MET
[2021-06-20 16:12] LABS: Anisocytosis RARE; Crenated RBC RARE; Macrocytosis RARE; Ovalocyte RARE; Platelet Estimate ADEQUATE (ADEQ); Red Cell Morphology N CHROM NORMAL (NORM C&C)
--- NOTE | 2021-06-20 16:36 | ED.RN ---
report given to Clara. per clara ashraf IV in. pt going rm 11
== END 2021-06-20 16:52 ==
PROVIDERS: Emergency Provider Student in an Organized Health Care Education/Training Program; PCP Family Medicine
DX: R53.81 Other malaise (principal); R53.1 Weakness; R53.83 Other fatigue; I48.20 Chronic atrial fibrillation, unspecified; M06.9 Rheumatoid arthritis, unspecified; I10 Essential (primary) hypertension; Z79.01 Long term (current) use of anticoagulants; Z79.52 Long term (current) use of systemic steroids; Z79.82 Long term (current) use of aspirin; Z79.899 Other long term (current) drug therapy; Z86.16 Personal history of COVID-19
CPT/HCPCS: 36415; 71045; 80048; 80053; 84484; 85025; 93005; 96374; 99285; A4216

== ENCOUNTER 2021-06-20 17:18 | Inpatient (IN) | payer MEDICARE, OTHER, SELFPAY ==
[2021-06-20 17:26] VITALS: BP 95/58; PULSE 87; RESP 16; TEMP 36.2; O2SAT 94; BMI 22.4
--- NOTE | 2021-06-20 19:21 | HP.PCM_ITS ---
HPI - General General Date of Admission: 06/20/21 HPI Narrative 06/18/2021 HELGA DAVIS, is a 85 Female who presents to [facility] with weakness. covid19 April 2021. Cough, nausea, fatigue, appetite decreased. UA negative, WBC increased, mild baseline anemia. IV fluids given. Rx Zofran given. Patient discharged home. 06/20/2021 Patient presented to [facility] with weakness. Weakness, fatigue, diarrhea, appetite decreased. Unable to care for self, unable to care fo her, family unable to care for her because of work. Patient developed atrial fibrillation with rapid ventricular response, cardizem IV given, heart rate controlled. 06/20/2021 Admit to TCU with debility, here for rehabilitation, strengthening, prior to discharge home with . [facility] Medical History Anemia CAP (community acquired pneumonia) Cardiac dysrhythmia Chronic a-fib COVID Essential hypertension Failure to thrive Lower extremity pain, left Nausea and vomiting Non-rheumatic tricuspid valve insufficiency Nonrheumatic mitral (valve) stenosis Nonrheumatic mitral valve regurgitation Osteopenia Persistent atrial fibrillation Rheumatoid arthritis Rheumatoid arthritis Rheumatoid arthritis Sepsis associated hypotension Squamous cell carcinoma of skin Stroke Viral myocarditis Home Medications metoprolol succinate 100 mg PO DAILY 05/03/13 [History Last Taken 02/13/21] alendronate 70 mg tablet 70 mg PO FR 07/10/17 [History Last Taken 02/08/21] leucovorin calcium 5 mg tablet 5 mg PO MO tab 07/13/17 [History Last Taken 02/11/21] cholecalciferol (vitamin D3) 25 mcg (1,000 unit) tablet 25 mcg PO DAILY 03/05/20 [History Last Taken 02/13/21] methotrexate sodium 2.5 mg tablet 20 mg PO ARAUJO tab 03/05/20 [History Last Taken 02/10/21] apixaban 5 mg PO BID 06/28/20 [History Last Taken 02/14/21] atorvastatin 40 mg PO QHS 06/28/20 [History Last Taken 02/13/21] prednisone 5 mg tablet 5 mg PO Q OTHER DAY tab 03/12/21 [History Last Taken Unknown] albuterol sulfate [Ventolin HFA] 2 puff INHALATION Q4H PRN PRN #1 inhaler 05/17/21 [Rx Last Taken Unknown] aspirin [Aspir-81] 81 mg PO DAILY 06/18/21 [History Last Taken Unknown] ondansetron 4 mg PO Q8H PRN #10 tab 06/18/21 [Rx Last Taken Unknown] sertraline 50 mg PO DAILY 06/18/21 [History Last Taken Unknown] diltiazem HCl 180 mg PO DAILY 06/20/21 [History Last Taken Unknown] ramipril 10 mg PO DAILY 06/20/21 [History Last Taken Unknown] Allergy/AdvReac Type Severity Reaction Status Date / Time doxycycline AdvReac Severe GI Upset Verified 06/20/21 12:54 hydrochlorothiazide AdvReac Unknown Unknown Verified 06/20/21 12:54 tramadol HCl [From Ultram] AdvReac Vomiting Verified 06/20/21 12:54 Family History Mother Heart disease Hypertension Father Cancer lung Surgical History History of breast biopsy History of carpal tunnel release of both wrists History of hip replacement, total History of knee replacement Social History (Updated 06/20/21 @ 19:[address] Fish Krause MD) household members: spouse Smoking Status: Never smoker alcohol intake: never substance use type: does not use caffeine: Yes Type: tea Number of servings: 3 ROS Constitutional Constitutional: Denies chills, fever(s) or weight gain ENT HEENT: Denies headache(s), nasal congestion or nasal discharge Cardiovascular Cardiovascular: Denies chest pain or palpitations Respiratory/Chest Respiratory/Chest: Denies cough, excessive phlegm production or shortness of b reath with exertion Gastrointestinal Gastrointestinal: Denies abdominal pain, nausea or vomiting Genitourinary Genitourinary: Denies dysuria Musculoskeletal Musculoskeletal: Denies joint pain or joint swelling Integumentary Integumentary: Denies rash or wounds Neurologic Neurologic: Denies focal weakness, numbness or tingling Psychiatric Psychiatric: Denies anxiety, auditory hallucinations, depression, homicidal ideation or suicidal ideation Vital Signs Vital Signs Vital Signs: 06/20/21 17:26 Temperature 97.2 F L Temperature Source Temporal Pulse Rate 87 Pulse Rhythm Irregular Pulse Strength Normal (2+) Respiratory Rate 16 Respiratory Effort Normal Non-Labored Respiratory Depth Normal Respiratory Pattern Normal Blood Pressure 95/58 L Blood Pressure Mean 70 Blood Pressure Source Monitor Blood Pressure Position Sitting Blood Pressure Location Left Arm Pulse Ox 94 Oxygen Delivery Method Room Air Weight Weight: 57.334 kg Body Mass Index (BMI) 22.4 Physical Exam Const alert and oriented x3 General Appearance: cooperative HEENT normocephalic Eyes PERRL and EOMs intact bilaterally Neck supple, no JVD and no carotid bruits Resp normal respiratory effort, normal air movement and clear to auscultation bilaterally Cardio regular rate and regular rhythm GI normal to inspection, nondistended, normoactive bowel sounds, non-tender and non-distended Extremity normal capillary refill General Extremity: Negative for edema Skin no rashes or lesions noted General Skin Exam: no breakdown Psych affect normal Appearance: appropriate Results Lab / Micro Data Result Diagrams: 06/21/21 07:14 06/21/21 07:14 Assessment & Plan Assessment/Plan (1) Debility: (2) Weakness: (3) COVID-19: (4) Hypertension: (5) Osteoporosis: (6) Rheumatoid arthritis: (7) Vitamin D deficiency: (8) Atrial fibrillation with rapid ventricular response: (9) Hyperlipidemia: (10) Depression: PLAN: 85 year old female with below past medical history presents with weakness secondary to breakthrough covid19 infection, complicated by atrial fibrillation with rapid ventricular response, admitted to TCU with debility, here for rehabilitation, strengthening, prior to discharge home with . * Debility - PT/OT. * Pain - Tylenol 1000mg q6h prn pain (1-10). * Bowel - Miralax 17gm daily, Senna/colace 1 tablet bid, Dulcolax 10mg daily pr n. * Adult immunization - Administer prevnar 13, pneumovax 23, fluzone, covid19 vaccine as appropriate. * DVT prophylaxis - Not necessary, already on Eliquis. * Shortness of breath - Albuterol 2 puffs q4h prn. * Osteoporosis - Alendronate 70mg qwk. * Atrial fibrillation - Metoprolol succinate 100mg daily, Diltiazem CD 180mg daily, Eliquis 5mg bid. * Hyperlipidemia - Atorvastatin 40mg qhs. * Vitamin D deficiency - D3 25mcg daily. * Nutrition - Ensure 118ml po tidcm. * Rheumatoid arthritis - MTX 20mg qwk, Leucovorin 5mg qwk, prednisone 5mg every other day. * Hypertension - Metoprolol succinate 100mg daily, Diltiazem CD 180mg daily, Lisinopril 10mg daily. * Skin irritation - Calmoseptine topical bid. * Nausea - Zofran 4mg q8h prn. * Depression - Sertraline 50mg daily, stable chronic long term care pharmacist use, GDR not recommended.
[2021-06-20] MEDS: Menthol/Lanolin/Calamine/Znox 113 GM Tube 1 APPLIC TOPICAL (21:44)
[2021-06-20] MEDS: Atorvastatin Calcium 40 MG Tablet PO (21:45)
[2021-06-20] MEDS: APIXABAN 5 MG TABLET PO (21:45)
[2021-06-20] MEDS: Senna/Docusate Sodium 1 Tablet PO (21:45)
[2021-06-21] MEDS: Menthol/Lanolin/Calamine/Znox 113 GM Tube 1 APPLIC TOPICAL (05:23)
[2021-06-21 05:24] VITALS: BP 131/72; PULSE 110
[2021-06-21] MEDS: Senna/Docusate Sodium 1 Tablet PO ×2 (05:24→18:41)
[2021-06-21] MEDS: Alendronate Sodium 70 MG Tablet PO (05:24)
[2021-06-21] MEDS: Metoprolol(XL)Succ 100 MG Tablet PO (05:24)
[2021-06-21] MEDS: Polyethylene Glycol 3350 17 GM PACKET PO (05:24)
[2021-06-21] MEDS: APIXABAN 5 MG TABLET PO ×2 (05:24→18:40)
[2021-06-21] MEDS: dilTIAZem CD 180 MG Capsule PO (05:24)
[2021-06-21] MEDS: Sertraline 50 MG Tablet PO (05:25)
[2021-06-21] MEDS: Cholecalciferol (VIT D3) 25 MCG TABLET (1,000 UNITS) PO (05:25)
[2021-06-21] MEDS: Lisinopril 10 MG Tablet PO (05:25)
--- NOTE | 2021-06-21 06:29 | NURSING ---
Pt alert and cooperative. Took meds with some difficulty. Only able to take one pill at a time,
[2021-06-21 07:38] LABS: Absolute Lymphocyte Count 0.73 X10^3/uL (0.83-4.51); Absolute Neutrophil Count 5.6 X10^3/uL (2.0-7.7); Basophil# 0.05 X10^3/uL; Basophil% 0.7 % (0-1); Eosinophil# 0.12 X10^3/uL; Eosinophils% 1.7 % (0-5); Hematocrit 32.1 % (37-47); Hemoglobin 10.7 g/dL (12.0-15.0); Lymphocyte # 0.73 X10^3/ul (0.83-4.51); Lymphocyte % 10.2 % (19-41); Mean Corp Hgb Conc 33.3 g/dL (32-36); Mean Corpuscular Hgb 31.6 pg (27.0-32.0); Mean Corpuscular Volume 94.7 fL (81-99); Mean Platelet Vol. 10.1 fl (6.2-12.0); Monocyte# 0.64 X10^3/uL; Monocyte% 8.9 % (0-10); NRBC Flagged by Analyzer 0 % (0-5); Neutrophil # 5.58 X10^3/uL (2.7-7.7); Neutrophil % 77.7 % (47-70); POSITIVE MORPHOLOGY YES; Platelet Count 364 K/mm3 (150-450); RBC Distribution Width CV 15.7 % (11.6-14.6); RBC Distribution Width SD 53.5 fl (35.1-43.9); Red Blood Count 3.39 M/mm3 (4.2-5.4); White Blood Count 7.2 K/mm3 (4.4-11.0)
[2021-06-21 07:48] LABS: Differential Indicated SCAN CRITERIA MET
[2021-06-21 08:00] VITALS: O2SAT 81
[2021-06-21 08:15] LABS: Anion Gap 8 (5-15); BUN 21 mg/dL (7-18); BUN/Creat Ratio 23.5 RATIO (10-20); Calcium,Total 8.3 mg/dL (8.5-10.1); Chloride 103 mmol/L (98-107); Creatinine, Serum 0.89 mg/dL (0.55-1.02); EST Glomerular Filtration Rate 64 mL/min (>60); Est Glom Filt Rate - Afr Amer 78 mL/min (>60); Estimated Creatinine Clearance 39.62 ml/min; Glucose 110 mg/dL (74-106); Potassium 3.8 mmol/L (3.5-5.1); Sodium Level 133 mmol/L (136-145)
[2021-06-21 08:22] LABS: Anisocytosis RARE; Ovalocyte RARE; Platelet Estimate ADEQUATE (ADEQ)
[2021-06-21] MEDS: Tuberculin,Purif.prot.deriv. 50 TU/ML Vial 0.1 ML ID (11:56)
[2021-06-21 14:36] VITALS: RESP 18
[2021-06-21 15:03] VITALS: BP 103/56; PULSE 88; RESP 17; TEMP 37.1; O2SAT 94
--- NOTE | 2021-06-21 18:35 | NURSING ---
Pt's family requesting a appetite stimulate Dr. Krause updated and new order for Remeron 7.5mg qhs. Family updated.
[2021-06-21] MEDS: Atorvastatin Calcium 40 MG Tablet PO (21:46)
[2021-06-21] MEDS: Mirtazapine 15 MG Tablet 7.5 MG PO (21:46)
[2021-06-22] MEDS: Cholecalciferol (VIT D3) 25 MCG TABLET (1,000 UNITS) PO (06:20)
[2021-06-22] MEDS: Sertraline 50 MG Tablet PO (06:20)
[2021-06-22] MEDS: Polyethylene Glycol 3350 17 GM PACKET PO (06:20)
[2021-06-22] MEDS: Lisinopril 10 MG Tablet PO (06:20)
[2021-06-22] MEDS: APIXABAN 5 MG TABLET PO ×2 (06:20→18:33)
[2021-06-22] MEDS: Senna/Docusate Sodium 1 Tablet PO ×2 (06:20→18:33)
[2021-06-22] MEDS: 0.9% Saline Lock 10 ML Syringe IV (06:21)
[2021-06-22 06:23] VITALS: BP 141/81; PULSE 89
[2021-06-22] MEDS: Metoprolol(XL)Succ 100 MG Tablet PO (06:23)
[2021-06-22] MEDS: dilTIAZem CD 180 MG Capsule PO (06:24)
[2021-06-22] MEDS: Menthol/Lanolin/Calamine/Znox 113 GM Tube 1 APPLIC TOPICAL ×2 (06:32→18:33)
[2021-06-22] MEDS: predniSONE 5 MG Tablet PO (09:51)
[2021-06-22 15:10] VITALS: BP 89/54; PULSE 96; RESP 16; TEMP 36.8; O2SAT 95
--- NOTE | 2021-06-22 16:45 | NURSING ---
pt's family (son) was visiting and made aware of 2 positive staff and patient
[2021-06-22 19:48] VITALS: PULSE 73; RESP 16; O2SAT 92
[2021-06-22] MEDS: Mirtazapine 15 MG Tablet 7.5 MG PO (19:53)
[2021-06-22] MEDS: Atorvastatin Calcium 40 MG Tablet PO (19:53)
[2021-06-23] MEDS: Polyethylene Glycol 3350 17 GM PACKET PO (05:51)
[2021-06-23] MEDS: Sertraline 50 MG Tablet PO (05:51)
[2021-06-23] MEDS: Lisinopril 10 MG Tablet PO (05:51)
[2021-06-23 05:52] VITALS: BP 128/78; PULSE 95
[2021-06-23] MEDS: Metoprolol(XL)Succ 100 MG Tablet PO (05:52)
[2021-06-23] MEDS: Cholecalciferol (VIT D3) 25 MCG TABLET (1,000 UNITS) PO (05:52)
[2021-06-23] MEDS: Senna/Docusate Sodium 1 Tablet PO (05:52)
[2021-06-23] MEDS: APIXABAN 5 MG TABLET PO ×2 (05:53→17:21)
[2021-06-23] MEDS: dilTIAZem CD 180 MG Capsule PO (05:53)
[2021-06-23] MEDS: Menthol/Lanolin/Calamine/Znox 113 GM Tube 1 APPLIC TOPICAL ×2 (05:54→17:21)
--- NOTE | 2021-06-23 06:00 | NURSING ---
Pt informs this nurse she takes 4 tabs in am and 4 tabs about 12 hours later at home. Communication sent to pharmacy to change medication times and doses as noted above. Ensure held at this time due to anticipated dosing of Methotrexate.
[2021-06-23] MEDS: Methotrexate 2.5 MG Tablet 10 MG PO ×2 (08:17→17:21)
[2021-06-23 10:00] VITALS: PULSE 74; RESP 18; O2SAT 95
[2021-06-23 15:34] VITALS: BP 96/62; PULSE 93; RESP 16; TEMP 36.7; O2SAT 96
[2021-06-23] MEDS: Atorvastatin Calcium 40 MG Tablet PO (20:20)
[2021-06-23] MEDS: Mirtazapine 15 MG Tablet 7.5 MG PO (20:20)
[2021-06-24 05:35] VITALS: BP 133/70; PULSE 88
[2021-06-24] MEDS: Sertraline 50 MG Tablet PO (05:35)
[2021-06-24] MEDS: Cholecalciferol (VIT D3) 25 MCG TABLET (1,000 UNITS) PO (05:35)
[2021-06-24] MEDS: Polyethylene Glycol 3350 17 GM PACKET PO (05:35)
[2021-06-24] MEDS: dilTIAZem CD 180 MG Capsule PO (05:35)
[2021-06-24] MEDS: Lisinopril 10 MG Tablet PO (05:35)
[2021-06-24] MEDS: Metoprolol(XL)Succ 100 MG Tablet PO (05:35)
[2021-06-24] MEDS: APIXABAN 5 MG TABLET PO ×2 (05:35→17:46)
[2021-06-24] MEDS: Senna/Docusate Sodium 1 Tablet PO (05:35)
[2021-06-24] MEDS: Menthol/Lanolin/Calamine/Znox 113 GM Tube 1 APPLIC TOPICAL ×2 (05:36→17:47)
[2021-06-24] MEDS: predniSONE 5 MG Tablet PO (08:22)
[2021-06-24 14:10] VITALS: BP 98/57; PULSE 68; RESP 98; TEMP 36.3
--- NOTE | 2021-06-24 14:32 | PHA.CONS1_ITS ---
Progress Note - Pharmacy Subjective: TCU Admission Objective: Allergies doxycycline Adverse Reaction (Severe, Verified 06/20/21 12:54) GI Upset hydrochlorothiazide Adverse Reaction (Unknown, Verified 06/20/21 12:54) Unknown tramadol HCl [From [facility]] Adverse Reaction (Verified 06/20/21 12:54) Vomiting Current Medications Generic Name Dose Route Start Last Admin Trade Name Freq PRN Reason Stop Dose Admin Acetaminophen 1,000 mg 06/20/21 19:34 Acetaminophen 500 Mg Tablet PO Q6H PRN PRN Pain Score 1-10 Albuterol Sulfate 2 puff 06/20/21 17:32 Albuterol Sulfate 8 Gm Inhaler (60 Puffs) INHALATION Q4H PRN PRN Wheezing Alendronate Sodium 70 mg 06/21/21 06:00 06/21/21 05:24 Alendronate Sodium 70 Mg Tablet PO 70 mg FR PETAR Administration Apixaban 5 mg 06/20/21 18:00 06/24/21 05:35 Apixaban 5 Mg Tablet PO 5 mg BID PETAR Administration Atorvastatin Calcium 40 mg 06/20/21 22:00 06/23/21 20:20 Atorvastatin Calcium 40 Mg Tablet PO 40 mg QHS PETAR Administration Bisacodyl 10 mg 06/20/21 19:34 Bisacodyl 5 Mg Tablet PO DAILY PRN PRN Constipation Calamine/Phenol 1 applic 06/20/21 18:00 06/24/21 05:36 Menthol/Lanolin/Calamine/Znox 113 Gm Tube TOPICAL 1 applic BID PETAR Administration Protocol Cholecalciferol 25 mcg 06/21/21 06:00 06/24/21 05:35 Cholecalciferol (Vit D3) 25 Mcg Tablet (1,000 Units) PO 25 mcg DAILY PETAR Administration Diltiazem HCl 180 mg 06/21/21 06:00 06/24/21 05:35 Diltiazem Cd 180 Mg Capsule PO 180 mg DAILY PETAR Administration Leucovorin Calcium 5 mg 06/24/21 17:32 Leucovorin 5 Mg Tablet PO MO PETAR Lisinopril 10 mg 06/21/21 06:00 06/24/21 05:35 Lisinopril 10 Mg Tablet PO 10 mg DAILY PETAR Administration Methotrexate 10 mg 06/23/21 18:00 06/23/21 17:21 Methotrexate 2.5 Mg Tablet PO 10 mg [place]on@1800 PETAR Administration Methotrexate 10 mg 06/23/21 08:30 06/23/21 08:17 Methotrexate 2.5 Mg Tablet PO 10 mg [place]on@0600 PETAR Administration Metoprolol Succinate 100 mg 06/21/21 06:00 06/24/21 05:35 Metoprolol(Xl)Succ 100 Mg Tablet PO 100 mg DAILY PETAR Administration Mirtazapine 7.5 mg 06/21/21 22:00 06/23/21 20:20 Mirtazapine 15 Mg Tablet PO 7.5 mg QHS PETAR Administration Nutritional Formula (Lactose Free) 118 ml 06/21/21 17:00 06/24/21 11:33 Ensure Compact 118 Ml Liquid PO 118 ml 4X/DAY PETAR Administration Ondansetron HCl 4 mg 06/20/21 17:32 Ondansetron Odt 4 Mg Tablet PO Q8H PRN nausea and vomiting Polyethylene Glycol 17 gm 06/21/21 06:00 06/24/21 11:19 Polyethylene Glycol 3350 17 Gm Packet PO Not Given DAILY PETAR Prednisone 5 mg 06/22/21 08:00 06/24/21 08:22 Prednisone 5 Mg Tablet PO 5 mg QODAY@0800 PETAR Administration Senna/Docusate Sodium 1 tablet 06/20/21 19:45 06/24/21 11:18 Senna/Docusate Sodium 1 Tablet PO Not Given BID PETAR Sertraline HCl 50 mg 06/21/21 06:00 06/24/21 05:35 Sertraline 50 Mg Tablet PO 50 mg DAILY PETAR Administration Sodium Chloride 10 - 40 ml 06/20/21 23:44 06/22/21 06:21 0.9% Saline Lock 10 Ml Syringe IV 10 ml UD PRN Administration SALINE FLUSH Tuberculin PPD 0.1 ml 06/28/21 10:00 Tuberculin,Purif.Prot.Deriv. 50 Tu/Ml Vial ID 06/28/21 10:01 X1 ONE Problem List (Last Reviewed 06/20/21 @ 19:[address] Fish Krause MD) Depression (Acute) Hyperlipidemia (Acute) Atrial fibrillation with rapid ventricular response (Acute) Vitamin D deficiency (Acute) Rheumatoid arthritis (Acute) Osteoporosis (Acute) Hypertension (Chronic) Weakness (Acute) Debility (Acute) COVID-19 (Acute) Vital Signs Temp Pulse Resp BP Pulse Ox 97.4 F L 68 98 H 98/57 L 96 06/24/21 14:10 06/24/21 14:10 06/24/21 14:10 06/24/21 14:10 06/23/21 15:34 Oxygen Delivery Method Room Air Weight: 57.334 kg Body Mass Index (BMI) 22.4 Sodium 133 mmol/L (136-145) L 06/21/21 07:14 Potassium 3.8 mmol/L (3.5-5.1) 06/21/21 07:14 Chloride 103 mmol/L (98-107) 06/21/21 07:14 Carbon Dioxide 22.0 mmol/L (21.0-32.0) 06/21/21 07:14 Anion Gap 8 (5-15) 06/21/21 07:14 BUN 21 mg/dL (7-18) H 06/21/21 07:14 Creatinine 0.89 mg/dL (0.55-1.02) 06/21/21 07:14 Est GFR (MDRD) Af Amer 78 mL/min (>60) 06/21/21 07:14 Est GFR (MDRD) Non-Af 64 mL/min (>60) 06/21/21 07:14 BUN/Creatinine Ratio 23.5 RATIO (10-20) H 06/21/21 07:14 Glucose 110 mg/dL (74-106) H 06/21/21 07:14 Assessment/Plan: 1. Pain: acetaminophen 1000mg PO Q6H PRN pain 1-03/31. Please continue to monitor for increased pain and PRN usage. 2. Atrial fibrillation/hypertension: metoprolol succinate 100mg PO daily, diltiazem CD 180mg PO daily, apixaban 5mg PO BID and lisinopril 10mg PO daily. Please continue to monitor HR (last 68), BP (last 98/57), hemoglobin (last 10.7g/dL), potassium (last 3.8mmol/L), renal function and S/S of bleeding. 3. Rheumatoid arthritis: methotrexate 10mg on Thursday morning and 10mg Thursday evening, leucovorin 5mg PO Mondays and prednisone 5mg PO QODAY. Please continue to monitor for S/S of RA, platelets (last 364,000) and WBC. 4. Shortness of breath: albuterol MDI 2inhalations Q4H PRN wheezing. Please continue to monitor for SOB and PRN usage. 5. Osteoporosis: alendronate 70mg PO Fridays. Please continue to monitor for jaw pain and BMD. Please administer first thing in the morning on en empty stomach with a glass of water. *6. Hyperlipidemia: atorvastatin 40mg PO QHS. Please consider ordering a lipid panel if clinically appropriate. Last panel from 12/2017. Thanks. Please continue to monitor for muscle pain. 7. Nausea: ondansetron 4mg PO Q8H PRN nausea and vomiting. Please continue to monitor for nausea, vomiting and PRN usage. *8. Vitamin D deficiency: cholecalciferol 25mcg PO daily. Please consider ordering a vitamin D level if clinically appropriate. Patient does not have one in the chart. Thanks. Psychotropic Medications: 1. Depression: sertraline 50mg PO daily. Please see physician note regarding GDR. 2. Appetite loss (per nursing note): mirtazapine 7.5mg PO QHS. New medication, GDR not appropriate. Unnecessary Medications: None Bowel Regimen: Miralax 17gm PO daily, senna/docusate 1T PO BID and bisacodyl 10mg PO daily PRN constipation. Please continue to monitor for constipation and PRN usage. Date of Note:: 06/24/21
--- NOTE | 2021-06-24 14:39 | CASEMGMT ---
Social Work SW met with pt for psychosocial assessment. Code status discussed and SW assisted pt in completing MOLST form. Pt wishes are DNRCCA, no intubation. MOLST form communicated to nursing and physician and placed on pt chart. SW explained Medicare Benefit for coverage. Pt lives at home with her and son Mikhail. Pt states she has been very weak over the last month and had difficulty caring for herself. Pt is hopeful she can return home at time of discharge. SW to continue to follow. BEBA Talamantes
[2021-06-24] MEDS: 0.9% Saline Lock 10 ML Syringe IV (17:53)
[2021-06-24] MEDS: Mirtazapine 15 MG Tablet 7.5 MG PO (20:54)
[2021-06-24] MEDS: Atorvastatin Calcium 40 MG Tablet PO (20:55)
[2021-06-24 23:30] VITALS: PULSE 60; RESP 14; O2SAT 96
[2021-06-25 05:28] VITALS: BP 129/70; PULSE 94
[2021-06-25] MEDS: Cholecalciferol (VIT D3) 25 MCG TABLET (1,000 UNITS) PO (05:28)
[2021-06-25] MEDS: Metoprolol(XL)Succ 100 MG Tablet PO (05:28)
[2021-06-25] MEDS: Lisinopril 10 MG Tablet PO (05:28)
[2021-06-25] MEDS: APIXABAN 5 MG TABLET PO ×2 (05:28→17:38)
[2021-06-25] MEDS: Sertraline 50 MG Tablet PO (05:28)
[2021-06-25] MEDS: dilTIAZem CD 180 MG Capsule PO (05:28)
[2021-06-25] MEDS: Menthol/Lanolin/Calamine/Znox 113 GM Tube 1 APPLIC TOPICAL ×2 (05:39→17:37)
--- NOTE | 2021-06-25 08:34 | RAD_ITS ---
STUDY: X-RAY - ABDOMEN/PELVIS REASON FOR EXAM: Female, 85 years old. Diarrhea. TECHNIQUE: Single AP view of the abdomen / pelvis. COMPARISON: None. FINDINGS: Bibasilar pulmonary infiltrates likely worse at the left lung base. There is an unremarkable bowel gas pattern. The visualized liver, spleen and kidneys are grossly normal in size and morphology. Normal soft tissue structures. There are diffuse degenerative changes of the visualized lumbar spine. The patient is status post bilateral hip replacement. RAD/Abdomen Single View IMPRESSION: Nonspecific bowel gas pattern. Persistent bibasilar pulmonary infiltrates worse at the left lung base. Electronically Signed: Joseph Eagle MD at 14:26 EST , Service support ,
[2021-06-25 15:18] VITALS: BP 110/62; PULSE 91; RESP 16; TEMP 36.4; O2SAT 99
[2021-06-25] MEDS: Atorvastatin Calcium 40 MG Tablet PO (20:31)
[2021-06-25] MEDS: Mirtazapine 15 MG Tablet 7.5 MG PO (20:32)
[2021-06-26 05:00] VITALS: BP 136/85; PULSE 76
[2021-06-26] MEDS: Sertraline 50 MG Tablet PO (05:00)
[2021-06-26] MEDS: Cholecalciferol (VIT D3) 25 MCG TABLET (1,000 UNITS) PO (05:00)
[2021-06-26] MEDS: Lisinopril 10 MG Tablet PO (05:00)
[2021-06-26] MEDS: Metoprolol(XL)Succ 100 MG Tablet PO (05:00)
[2021-06-26] MEDS: APIXABAN 5 MG TABLET PO ×2 (05:01→16:43)
[2021-06-26] MEDS: dilTIAZem CD 180 MG Capsule PO (05:01)
[2021-06-26] MEDS: Menthol/Lanolin/Calamine/Znox 113 GM Tube 1 APPLIC TOPICAL ×2 (05:09→16:44)
[2021-06-26] MEDS: predniSONE 5 MG Tablet PO (08:15)
--- NOTE | 2021-06-26 11:47 | CASEMGMT ---
Social Work Plan of care meeting held with pt and daughter in law Joann present. Pt is currently receiving PT/OT. Pt stating she is very weak and tired and this is limiting factor in progress with therapy. Speech Therapy will be requested to evaluate for swallowing and cognition. RODERICK explained Medicare SNF benefit and encouraged DIL to contact secondary insurance to ensure copay coverage. Pt lives at home with her who is unable to provide any assistance to pt. Pt DIL states pt will need to be able to care for herself in order to return home. Up until pt became ill in April, pt was completely independent at home and provided some assistance to . RODERICK provided pt dgt with list of ECF, skilled and non skilled home health care including quality and resource use data. Pt progress with therapy will determine ability to return home. No d/c date set, will continue with treatment plan at this time. BEBA Angulo
--- NOTE | 2021-06-26 12:21 | NURSING ---
pt returned from Dr Garcia appt. New orders received for Diltazem to be reduced to 120 mg daily, Metoprolol to be reduced to 50 mg daily, and Lisinopril to be reduced to 5mg daily. Echocardiogram/Doppler to be ordered and F/U in 3 months.
[2021-06-26 14:26] VITALS: BP 112/64; PULSE 92; RESP 18; TEMP 36.1; O2SAT 98
--- NOTE | 2021-06-26 14:30 | NURSING ---
Resident and son, Jorgito, notified of 3 staff members testing positive for COVID.
[2021-06-26] MEDS: Ensure Clear 120 ML Liquid PO (16:43)
[2021-06-26 20:00] VITALS: BP 101/62; PULSE 60; RESP 16; TEMP 36.6; O2SAT 98
[2021-06-26] MEDS: Mirtazapine 15 MG Tablet 7.5 MG PO (20:00)
[2021-06-26] MEDS: Atorvastatin Calcium 40 MG Tablet PO (20:00)
[2021-06-27] VITALS (9 sets, daily range): BP systolic 83–145; BP diastolic 46–78; PULSE 62–94; RESP 16; TEMP 36.1–36.7; O2SAT 96–99
[2021-06-27] MEDS: Metoprolol(XL)Succ 50 MG Tablet PO (05:50)
[2021-06-27] MEDS: Lisinopril 5 MG Tablet PO (05:52)
[2021-06-27] MEDS: Sertraline 50 MG Tablet PO (05:52)
[2021-06-27] MEDS: Cholecalciferol (VIT D3) 25 MCG TABLET (1,000 UNITS) PO (05:52)
[2021-06-27] MEDS: APIXABAN 5 MG TABLET PO ×2 (05:52→17:04)
[2021-06-27] MEDS: Menthol/Lanolin/Calamine/Znox 113 GM Tube 1 APPLIC TOPICAL ×2 (05:53→17:04)
[2021-06-27] MEDS: dilTIAZem CD 120 MG Capsule PO (05:53)
[2021-06-27] MEDS: Ensure Clear 120 ML Liquid PO ×3 (07:48→17:03)
--- NOTE | 2021-06-27 11:00 | NURSING ---
Therapy called this nurse to room for pt c/o dizziness, whoozy after walking from bed to toilet, BP taken 83/56 62, 83/46 81, 86/48 86, pt walked to sink then requested to sit
--- NOTE | 2021-06-27 17:12 | NURSING ---
ASSISTED TO RESTROOM X1 WITH WALKER. MARYSE-PAD CHANGED, BEA APPLIED TO BUTTOCKS. DENIES PAIN. VS OBTAINED. ASSISTED BACK TO CHAIR. DENIES NEEDS. WILL MONITOR.
[2021-06-27] MEDS: Atorvastatin Calcium 40 MG Tablet PO (20:04)
[2021-06-27] MEDS: Mirtazapine 15 MG Tablet 7.5 MG PO (20:04)
[2021-06-28 06:00] LABS: Absolute Lymphocyte Count 1.09 X10^3/uL (0.83-4.51); Absolute Neutrophil Count 4.2 X10^3/uL (2.0-7.7); Basophil# 0.11 X10^3/uL; Basophil% 1.9 % (0-1); Eosinophil# 0.24 X10^3/uL; Eosinophils% 4.2 % (0-5); Hematocrit 28.2 % (37-47); Hemoglobin 9.4 g/dL (12.0-15.0); Lymphocyte # 1.09 X10^3/ul (0.83-4.51); Mean Corp Hgb Conc 33.3 g/dL (32-36); Mean Corpuscular Hgb 32.2 pg (27.0-32.0); Mean Corpuscular Volume 96.6 fL (81-99); Monocyte# 0.09 X10^3/uL; Monocyte% 1.6 % (0-10); NRBC Flagged by Analyzer 0 % (0-5); Neutrophil # 4.18 X10^3/uL (2.7-7.7); POSITIVE MORPHOLOGY YES; Platelet Count 547 K/mm3 (150-450); RBC Distribution Width CV 16.2 % (11.6-14.6); RBC Distribution Width SD 54.5 fl (35.1-43.9); Red Blood Count 2.92 M/mm3 (4.2-5.4); White Blood Count 5.7 K/mm3 (4.4-11.0)
[2021-06-28 06:03] LABS: Differential Indicated SCAN CRITERIA MET
[2021-06-28] MEDS: Ondansetron ODT 4 MG Tablet PO (06:04)
[2021-06-28 06:08] VITALS: BP 128/70; PULSE 80
[2021-06-28 06:24] LABS: Anion Gap 5 (5-15); BUN 28 mg/dL (7-18); BUN/Creat Ratio 36.9 RATIO (10-20); Calcium,Total 8.4 mg/dL (8.5-10.1); Chloride 109 mmol/L (98-107); Creatinine, Serum 0.76 mg/dL (0.55-1.02); EST Glomerular Filtration Rate 77 mL/min (>60); Est Glom Filt Rate - Afr Amer 94 mL/min (>60); Estimated Creatinine Clearance 35.26 ml/min; Glucose 84 mg/dL (74-106); Potassium 4.6 mmol/L (3.5-5.1); Sodium Level 139 mmol/L (136-145)
[2021-06-28 07:08] LABS: Differential Comment SCANNED
[2021-06-28] MEDS: Alendronate Sodium 70 MG Tablet PO (07:17)
--- NOTE | 2021-06-28 07:21 | NURSING ---
Patient nauseated this AM. Zofran given. Patient now saying nausea much better, she took fosamax with a glass of water, sitting up in bed. Updated oncoming nurse that other meds need given later this AM.
[2021-06-28] MEDS: APIXABAN 5 MG TABLET PO ×2 (08:15→18:26)
[2021-06-28] MEDS: Cholecalciferol (VIT D3) 25 MCG TABLET (1,000 UNITS) PO (08:15)
[2021-06-28] MEDS: Sertraline 50 MG Tablet PO (08:15)
[2021-06-28 08:19] VITALS: BP 104/63; PULSE 100
[2021-06-28] MEDS: predniSONE 5 MG Tablet PO (08:52)
[2021-06-28] MEDS: dilTIAZem CD 120 MG Capsule PO (08:52)
[2021-06-28] MEDS: Menthol/Lanolin/Calamine/Znox 113 GM Tube 1 APPLIC TOPICAL ×2 (08:52→21:25)
--- NOTE | 2021-06-28 10:11 | NURSING ---
Contacted Dr. Sharpe's office notifying them of pt current V.S. and V.S. yesterday with episode of dizzy. Nurse stated she would speak with Dr. Sharpe and call this nurse back.
--- NOTE | 2021-06-28 12:15 | NURSING ---
Notified family of need to bring Leucovorin medication in as [facility] pharmacy does not carry this. Family agreeable to this.
[2021-06-28] MEDS: Tuberculin,Purif.prot.deriv. 50 TU/ML Vial 0.1 ML ID (12:19)
--- NOTE | 2021-06-28 12:40 | NURSING ---
Resident and son, Mark, notified of a resident testing positive for COVID on the unit.
[2021-06-28 13:25] VITALS: BP 89/55; PULSE 85; RESP 16; TEMP 36.7
[2021-06-28 16:13] VITALS: PULSE 85
--- NOTE | 2021-06-28 16:18 | NURSING ---
Contacted Dr. Sharpe's office again, spoke with Tad. Waiting for response from Dr. Sharpe.
[2021-06-28] MEDS: Ensure Clear 120 ML Liquid PO (16:33)
--- NOTE | 2021-06-28 16:56 | NURSING ---
Spoke with Natacha in Dr. Sharpe's office, per Dr. Sharpe's order, Stop Cardizem and Lisiniprol. Order repeated back.
[2021-06-28 21:09] VITALS: RESP 16
[2021-06-28] MEDS: Mirtazapine 15 MG Tablet 7.5 MG PO (21:24)
[2021-06-28] MEDS: Atorvastatin Calcium 40 MG Tablet PO (21:24)
[2021-06-29 06:06] VITALS: BP 127/75; PULSE 115; RESP 16; TEMP 36.5
[2021-06-29 06:11] VITALS: BP 127/75; PULSE 115
[2021-06-29] MEDS: Cholecalciferol (VIT D3) 25 MCG TABLET (1,000 UNITS) PO (06:11)
[2021-06-29] MEDS: Sertraline 50 MG Tablet PO (06:11)
[2021-06-29] MEDS: Metoprolol(XL)Succ 50 MG Tablet PO (06:11)
[2021-06-29] MEDS: APIXABAN 5 MG TABLET PO ×2 (06:11→18:24)
[2021-06-29] MEDS: Ensure Clear 120 ML Liquid PO (09:47)
[2021-06-29 14:15] VITALS: BP 82/50; PULSE 91; RESP 18; TEMP 36.7; O2SAT 99
--- NOTE | 2021-06-29 18:24 | NURSING ---
BP noted to be low. Resident states its been like that since I've been in here. Denies feeling any symptoms associated with low Blood pressure.
[2021-06-29] MEDS: Mirtazapine 15 MG Tablet 7.5 MG PO (22:33)
[2021-06-29] MEDS: Atorvastatin Calcium 40 MG Tablet PO (22:34)
[2021-06-30 06:09] VITALS: BP 144/90; PULSE 115
[2021-06-30] MEDS: Methotrexate 2.5 MG Tablet 10 MG PO ×2 (06:10→17:29)
[2021-06-30 06:11] VITALS: BP 144/90; PULSE 115
[2021-06-30] MEDS: Metoprolol(XL)Succ 50 MG Tablet PO (06:11)
[2021-06-30] MEDS: Cholecalciferol (VIT D3) 25 MCG TABLET (1,000 UNITS) PO (06:11)
[2021-06-30] MEDS: Sertraline 50 MG Tablet PO (06:12)
[2021-06-30] MEDS: APIXABAN 5 MG TABLET PO ×2 (06:12→17:28)
[2021-06-30] MEDS: Ensure Clear 120 ML Liquid PO (08:08)
[2021-06-30] MEDS: predniSONE 5 MG Tablet PO (08:09)
[2021-06-30] MEDS: Bisacodyl 5 MG Tablet 10 MG PO (11:46)
[2021-06-30 15:34] VITALS: BP 121/82; PULSE 107; RESP 18; TEMP 36.7; O2SAT 96
[2021-06-30 17:33] VITALS: PULSE 107; RESP 18; O2SAT 96
[2021-06-30] MEDS: Atorvastatin Calcium 40 MG Tablet PO (22:36)
[2021-06-30] MEDS: Mirtazapine 15 MG Tablet 7.5 MG PO (22:36)
--- NOTE | 2021-07-01 06:06 | NURSING ---
Pt w/ emesis and incontinent of stool this am per MARKETING TRAFFIC COORDINATOR's report. Pt notes brief episode of nausea which has resolved. Noted pt spitting small amounts of clear sputum into emesis bag. Vitals obtained and recorded. Offered kennedy westley, sprite, chicken broth, ice chips, and saltine crackers and pt refuses all options. In no acute distress. Sitting in w/c. Call light w/ in reach. Staff to continue to monitor.
[2021-07-01 06:11] VITALS: BP 108/58; PULSE 93; RESP 20; TEMP 36.4; O2SAT 98
--- NOTE | 2021-07-01 06:12 | NURSING ---
AM meds held at this time due to nausea.
[2021-07-01] MEDS: Cholecalciferol (VIT D3) 25 MCG TABLET (1,000 UNITS) PO (07:52)
[2021-07-01] MEDS: APIXABAN 5 MG TABLET PO ×2 (07:52→17:24)
[2021-07-01] MEDS: Sertraline 50 MG Tablet PO (07:52)
[2021-07-01] MEDS: leucovorin 5 MG Tablet PO (07:52)
[2021-07-01 09:21] VITALS: BP 91/60; PULSE 102
[2021-07-01 09:24] VITALS: BP 106/60; PULSE 108
[2021-07-01 09:31] VITALS: PULSE 102; RESP 18; O2SAT 95
--- NOTE | 2021-07-01 13:33 | MDS.RN ---
Information for the mds was obtained from review of the clinical record, interview of resident, staff, and direct observation of resident's care.
[2021-07-01 14:30] VITALS: BP 97/52; PULSE 77; RESP 14; TEMP 36.8; O2SAT 99
[2021-07-01] MEDS: Mirtazapine 15 MG Tablet 7.5 MG PO (20:17)
[2021-07-01] MEDS: Atorvastatin Calcium 40 MG Tablet PO (20:17)
[2021-07-02 05:25] VITALS: BP 126/73; PULSE 96
[2021-07-02 05:26] VITALS: PULSE 96
[2021-07-02] MEDS: Sertraline 50 MG Tablet PO (05:26)
[2021-07-02] MEDS: APIXABAN 5 MG TABLET PO ×2 (05:26→18:02)
[2021-07-02] MEDS: Cholecalciferol (VIT D3) 25 MCG TABLET (1,000 UNITS) PO (05:26)
[2021-07-02] MEDS: Metoprolol(XL)Succ 50 MG Tablet PO (05:26)
[2021-07-02] MEDS: Ondansetron ODT 4 MG Tablet PO (05:32)
--- NOTE | 2021-07-02 05:36 | NURSING ---
Patient became nauseated after AM pills and vomited small amount of clear/white liquid. Unsure how much of her medication stayed down. Zofran given, nausea improved.
[2021-07-02] MEDS: predniSONE 5 MG Tablet PO (08:50)
[2021-07-02 10:32] VITALS: PULSE 88; O2SAT 98
--- NOTE | 2021-07-02 12:53 | NURSING ---
Resident and son, Mark, notified of staff member testing positive for COVID.
[2021-07-02 14:21] VITALS: BP 100/69; PULSE 104; RESP 14; TEMP 36.8; O2SAT 99
[2021-07-02] MEDS: Ensure Clear 120 ML Liquid PO (18:03)
[2021-07-02] MEDS: Mirtazapine 15 MG Tablet 7.5 MG PO (20:49)
[2021-07-02] MEDS: Atorvastatin Calcium 40 MG Tablet PO (20:49)
[2021-07-03] MEDS: Ondansetron ODT 4 MG Tablet PO (06:28)
[2021-07-03 06:29] VITALS: BP 118/84; PULSE 102
[2021-07-03 07:02] VITALS: PULSE 102
[2021-07-03] MEDS: APIXABAN 5 MG TABLET PO ×2 (07:02→17:39)
[2021-07-03] MEDS: Metoprolol(XL)Succ 50 MG Tablet PO (07:02)
[2021-07-03] MEDS: Cholecalciferol (VIT D3) 25 MCG TABLET (1,000 UNITS) PO (07:02)
[2021-07-03] MEDS: Sertraline 50 MG Tablet PO (07:02)
[2021-07-03] MEDS: Ensure Clear 120 ML Liquid PO (07:09)
[2021-07-03 15:43] VITALS: BP 91/59; PULSE 130; RESP 18; TEMP 36.2; O2SAT 97
[2021-07-03] MEDS: Mirtazapine 15 MG Tablet 7.5 MG PO (21:26)
[2021-07-03] MEDS: Atorvastatin Calcium 40 MG Tablet PO (21:26)
[2021-07-03 22:29] VITALS: PULSE 82; RESP 16; O2SAT 98
[2021-07-04 06:26] VITALS: BP 113/72; PULSE 117
[2021-07-04] MEDS: Metoprolol(XL)Succ 50 MG Tablet PO (06:26)
[2021-07-04] MEDS: APIXABAN 5 MG TABLET PO ×2 (06:26→16:58)
[2021-07-04] MEDS: Sertraline 50 MG Tablet PO (06:26)
[2021-07-04] MEDS: Cholecalciferol (VIT D3) 25 MCG TABLET (1,000 UNITS) PO (06:28)
[2021-07-04] MEDS: Ensure Clear 120 ML Liquid PO (08:34)
[2021-07-04] MEDS: predniSONE 5 MG Tablet PO (08:35)
--- NOTE | 2021-07-04 16:02 | CHAPLAIN ---
Type of Pastoral Visit _x__ Initial Visit ___ Follow-up Visit ___ On-call Visit ___ General Patient Visit ___ Spiritual Assessment ___ Family Conference ___ Bereavement ___ Rapid Response ___ Code Blue ___ Other (describe below) Pastoral Care Referral From _x__ Patient ___ Family ___ Nurse ___ Physician ___ Station Inspector ___ Senior Account Executive ___ Other (describe below) Sacrament/Intervention _x__ Active listening ___ Anointing ___ Restorationist ___ Bereavement ___ Communion ___ Sheryl exploration ___ _x__ Life review _x__ Prayer ___ Reconciliation ___ Sacrament of Sick _x__ Supportive presence ___ Wedding ___ Other (describe below) Pastoral Comments patient is doing a coloring page and talks about her life in review and family; pt goal is to gain strength and return home to family
[2021-07-04] MEDS: Atorvastatin Calcium 40 MG Tablet PO (20:51)
[2021-07-04] MEDS: Mirtazapine 15 MG Tablet 7.5 MG PO (20:52)
[2021-07-05] MEDS: Ondansetron ODT 4 MG Tablet PO (05:01)
[2021-07-05 05:03] VITALS: BP 114/75; PULSE 97
[2021-07-05 05:43] LABS: Absolute Lymphocyte Count 1.18 X10^3/uL (0.83-4.51); Absolute Neutrophil Count 3.5 X10^3/uL (2.0-7.7); Basophil# 0.05 X10^3/uL; Eosinophil# 0.34 X10^3/uL; Eosinophils% 6.5 % (0-5); Hematocrit 27.5 % (37-47); Hemoglobin 8.6 g/dL (12.0-15.0); Lymphocyte # 1.18 X10^3/ul (0.83-4.51); Lymphocyte % 22.6 % (19-41); Mean Corp Hgb Conc 31.3 g/dL (32-36); Mean Corpuscular Hgb 30.6 pg (27.0-32.0); Mean Corpuscular Volume 97.9 fL (81-99); Mean Platelet Vol. 10.4 fl (6.2-12.0); Monocyte# 0.12 X10^3/uL; Monocyte% 2.3 % (0-10); NRBC Flagged by Analyzer 0.4 % (0-5); Neutrophil # 3.52 X10^3/uL (2.7-7.7); Neutrophil % 67.2 % (47-70); POSITIVE MORPHOLOGY YES; Platelet Count 169 K/mm3 (150-450); RBC Distribution Width CV 15.8 % (11.6-14.6); RBC Distribution Width SD 55.5 fl (35.1-43.9); Red Blood Count 2.81 M/mm3 (4.2-5.4); White Blood Count 5.2 K/mm3 (4.4-11.0)
[2021-07-05 05:45] VITALS: BP 114/75; PULSE 97
[2021-07-05] MEDS: Metoprolol(XL)Succ 50 MG Tablet PO (05:45)
[2021-07-05] MEDS: Cholecalciferol (VIT D3) 25 MCG TABLET (1,000 UNITS) PO (05:45)
[2021-07-05] MEDS: Sertraline 50 MG Tablet PO (05:45)
[2021-07-05] MEDS: APIXABAN 5 MG TABLET PO ×2 (05:45→16:26)
[2021-07-05] MEDS: Alendronate Sodium 70 MG Tablet PO (05:45)
[2021-07-05 06:01] LABS: Differential Indicated SCAN CRITERIA MET
[2021-07-05 06:21] LABS: Atypical Lymphocyte 1+ %
[2021-07-05 06:22] LABS: Anisocytosis 1+; Ovalocyte 1+
[2021-07-05 06:23] LABS: Anion Gap 3 (5-15); BUN 26 mg/dL (7-18); BUN/Creat Ratio 32.1 RATIO (10-20); Calcium,Total 8.2 mg/dL (8.5-10.1); Chloride 112 mmol/L (98-107); Creatinine, Serum 0.81 mg/dL (0.55-1.02); EST Glomerular Filtration Rate 72 mL/min (>60); Est Glom Filt Rate - Afr Amer 87 mL/min (>60); Estimated Creatinine Clearance 43.53 ml/min; Glucose 81 mg/dL (74-106); Potassium 4.6 mmol/L (3.5-5.1); Sodium Level 141 mmol/L (136-145)
[2021-07-05] MEDS: Iron Polysaccharide Complex 150 MG CAPSULE PO (09:06)
[2021-07-05] MEDS: Ensure Clear 120 ML Liquid PO (09:06)
[2021-07-05 10:46] VITALS: PULSE 90
[2021-07-05 16:00] VITALS: BP 107/72; PULSE 115; RESP 24; TEMP 36.4; O2SAT 96
[2021-07-05 17:59] VITALS: PULSE 79
[2021-07-05] MEDS: Atorvastatin Calcium 40 MG Tablet PO (20:00)
[2021-07-05] MEDS: Mirtazapine 15 MG Tablet 7.5 MG PO (20:00)
[2021-07-06 05:19] VITALS: BP 109/71; PULSE 81
[2021-07-06] MEDS: APIXABAN 5 MG TABLET PO ×2 (05:19→17:24)
[2021-07-06] MEDS: Sertraline 50 MG Tablet PO (05:19)
[2021-07-06] MEDS: Cholecalciferol (VIT D3) 25 MCG TABLET (1,000 UNITS) PO (05:19)
[2021-07-06] MEDS: Metoprolol(XL)Succ 50 MG Tablet PO ×2 (05:19→12:29)
[2021-07-06] MEDS: Iron Polysaccharide Complex 150 MG CAPSULE PO (08:25)
[2021-07-06] MEDS: predniSONE 5 MG Tablet PO (08:25)
[2021-07-06] MEDS: Ensure Clear 120 ML Liquid PO ×2 (08:26→17:24)
--- NOTE | 2021-07-06 10:24 | NURSING ---
all source analyst reported that pt HR elevated runs 100's, highest at 130. history of AFIB. dr longoria updated, new order to increase toprol xl to 100mg daily and give extra 50mg today.
[2021-07-06 12:29] VITALS: BP 95/56; PULSE 110
[2021-07-06 14:57] VITALS: BP 95/62; PULSE 110; RESP 17; TEMP 36.5; O2SAT 98
[2021-07-06] MEDS: Atorvastatin Calcium 40 MG Tablet PO (21:02)
[2021-07-06] MEDS: Mirtazapine 15 MG Tablet 7.5 MG PO (21:02)
[2021-07-07] MEDS: Ondansetron ODT 4 MG Tablet PO (05:49)
[2021-07-07 06:34] VITALS: BP 117/72; PULSE 76
[2021-07-07] MEDS: Metoprolol(XL)Succ 100 MG Tablet PO (06:34)
[2021-07-07] MEDS: APIXABAN 5 MG TABLET PO ×2 (06:35→16:57)
[2021-07-07] MEDS: Sertraline 50 MG Tablet PO (06:35)
[2021-07-07] MEDS: Cholecalciferol (VIT D3) 25 MCG TABLET (1,000 UNITS) PO (06:35)
[2021-07-07] MEDS: Methotrexate 2.5 MG Tablet 10 MG PO ×2 (06:37→16:57)
[2021-07-07] MEDS: Ensure Clear 120 ML Liquid PO ×2 (08:40→16:57)
[2021-07-07] MEDS: Iron Polysaccharide Complex 150 MG CAPSULE PO (08:41)
[2021-07-07 09:01] VITALS: PULSE 110; RESP 16; O2SAT 99
[2021-07-07 09:39] LABS: Hematocrit 31.3 % (37-47); Hemoglobin 9.7 g/dL (12.0-15.0)
--- NOTE | 2021-07-07 13:40 | NURSING ---
pt c/o nasal dryness, scant bleeding at times. dr longoria notified. PRN order for nasal spray PRN
[2021-07-07] MEDS: Sodium Chloride 0.65% 1 SPRAY SPRAY.BTL NASAL ×2 (14:32→21:10)
[2021-07-07 14:47] VITALS: BP 98/58; PULSE 78; RESP 15; TEMP 36.1; O2SAT 98
[2021-07-07] MEDS: Mirtazapine 15 MG Tablet 7.5 MG PO (21:09)
[2021-07-07] MEDS: Atorvastatin Calcium 40 MG Tablet PO (21:09)
[2021-07-08] MEDS: Ondansetron ODT 4 MG Tablet PO (06:06)
[2021-07-08] MEDS: Cholecalciferol (VIT D3) 25 MCG TABLET (1,000 UNITS) PO (06:45)
[2021-07-08] MEDS: APIXABAN 5 MG TABLET PO ×2 (06:45→17:33)
[2021-07-08] MEDS: Sertraline 50 MG Tablet PO (06:45)
[2021-07-08] MEDS: leucovorin 5 MG Tablet PO (06:46)
[2021-07-08 06:47] VITALS: BP 106/56; PULSE 113
[2021-07-08] MEDS: Metoprolol(XL)Succ 100 MG Tablet PO (06:47)
[2021-07-08] MEDS: Sodium Chloride 0.65% 1 SPRAY SPRAY.BTL NASAL (06:50)
[2021-07-08] MEDS: predniSONE 5 MG Tablet PO (08:26)
[2021-07-08] MEDS: Ensure Clear 120 ML Liquid PO ×3 (08:26→17:33)
[2021-07-08] MEDS: Iron Polysaccharide Complex 150 MG CAPSULE PO (08:26)
[2021-07-08 13:46] VITALS: BP 93/64; PULSE 116; RESP 16; TEMP 36.9; O2SAT 99
--- NOTE | 2021-07-08 14:53 | NURSING ---
Resident and son, Mark, notified of 2 staff members testing positive for COVID.
[2021-07-08 20:59] VITALS: PULSE 106; RESP 16; O2SAT 95
[2021-07-08] MEDS: Mirtazapine 15 MG Tablet 7.5 MG PO (21:11)
[2021-07-08] MEDS: Atorvastatin Calcium 40 MG Tablet PO (21:11)
[2021-07-09] MEDS: Sertraline 50 MG Tablet PO (06:13)
[2021-07-09] MEDS: APIXABAN 5 MG TABLET PO ×2 (06:13→18:05)
[2021-07-09] MEDS: Cholecalciferol (VIT D3) 25 MCG TABLET (1,000 UNITS) PO (06:13)
[2021-07-09 06:14] VITALS: BP 116/65; PULSE 112
[2021-07-09] MEDS: Metoprolol(XL)Succ 100 MG Tablet PO (06:14)
[2021-07-09] MEDS: Ensure Clear 120 ML Liquid PO (07:37)
[2021-07-09] MEDS: Iron Polysaccharide Complex 150 MG CAPSULE PO (07:37)
[2021-07-09 13:10] VITALS: BP 82/47; PULSE 105; RESP 18; TEMP 37.1; O2SAT 98
--- NOTE | 2021-07-09 18:40 | NURSING ---
HS care given at this time. Patients buttocks showing shearing in several areas. Patient refused to let this Nurse apply sasha. Educated patient and explained we didn't want this to get worse. Patient still refused.
[2021-07-09] MEDS: Atorvastatin Calcium 40 MG Tablet PO (21:30)
[2021-07-09] MEDS: Mirtazapine 15 MG Tablet 7.5 MG PO (21:30)
[2021-07-10 05:17] VITALS: BP 111/79; PULSE 99
[2021-07-10] MEDS: Metoprolol(XL)Succ 100 MG Tablet PO (05:17)
[2021-07-10] MEDS: Sertraline 50 MG Tablet PO (05:17)
[2021-07-10] MEDS: Cholecalciferol (VIT D3) 25 MCG TABLET (1,000 UNITS) PO (05:17)
[2021-07-10] MEDS: APIXABAN 5 MG TABLET PO ×2 (05:17→17:21)
[2021-07-10] MEDS: Iron Polysaccharide Complex 150 MG CAPSULE PO (07:54)
[2021-07-10] MEDS: predniSONE 5 MG Tablet PO (07:54)
[2021-07-10] MEDS: Ensure Clear 120 ML Liquid PO ×3 (08:32→17:20)
--- NOTE | 2021-07-10 09:44 | NURSING ---
Patient up in chair this AM, pleasant and cooperative with medpass and breakfast.
--- NOTE | 2021-07-10 15:34 | CASEMGMT ---
Social Work VOLUNTEER SPECIALIST spoke with BERNARDO David about DC plans, recommendations for home with assistance vs AL, and got further clarification about home set up prior to admission. DIL and family reported they all agree pt and should not been living at home caring for each other or for themselves. Pt and have been resistant in the past to consider placement or help in the home. DIL, two sons and in room to visit. SW presented to follow up from VOLUNTEER SPECIALIST discussion. Reiterated recommendations, safety concerns and provided nonskilled list again. Pt and did agree to allow for home delivered meals, aide services for showers/intake worker/med oversight at DC. Tasked family with getting those services in the place with goal DC end of next week. Family agreeable. SW to order C PT/OT/SN/ROBERTS. No DME needs identified at this time. SW to continue to follow to finalize DC plans. Concepcion Mann, SHIRT MAKER MUSHROOM GROWTH MEDIA MIXER
[2021-07-10] MEDS: Sodium Chloride 0.65% 1 SPRAY SPRAY.BTL NASAL (17:20)
[2021-07-10 19:26] VITALS: BP 91/57; PULSE 103; RESP 18; TEMP 37.2; O2SAT 93
[2021-07-10] MEDS: Mirtazapine 15 MG Tablet 7.5 MG PO (23:06)
[2021-07-10] MEDS: Atorvastatin Calcium 40 MG Tablet PO (23:07)
[2021-07-11] MEDS: Ondansetron ODT 4 MG Tablet PO (06:09)
[2021-07-11 06:33] VITALS: BP 123/65; PULSE 85
[2021-07-11] MEDS: APIXABAN 5 MG TABLET PO ×2 (06:33→17:22)
[2021-07-11] MEDS: Sertraline 50 MG Tablet PO (06:33)
[2021-07-11] MEDS: Cholecalciferol (VIT D3) 25 MCG TABLET (1,000 UNITS) PO (06:33)
[2021-07-11] MEDS: Metoprolol(XL)Succ 100 MG Tablet PO (06:33)
[2021-07-11] MEDS: Sodium Chloride 0.65% 1 SPRAY SPRAY.BTL NASAL (06:34)
[2021-07-11] MEDS: Iron Polysaccharide Complex 150 MG CAPSULE PO (08:45)
[2021-07-11] MEDS: Ensure Clear 120 ML Liquid PO ×2 (08:45→11:54)
[2021-07-11 10:00] VITALS: PULSE 89; RESP 18; O2SAT 99
[2021-07-11 14:17] VITALS: BP 107/56; PULSE 90; RESP 16; TEMP 36.9; O2SAT 99
[2021-07-11] MEDS: Atorvastatin Calcium 40 MG Tablet PO (20:38)
[2021-07-11] MEDS: Mirtazapine 15 MG Tablet 7.5 MG PO (20:38)
[2021-07-12 05:46] LABS: Absolute Lymphocyte Count 1.05 X10^3/uL (0.83-4.51); Absolute Neutrophil Count 1.9 X10^3/uL (2.0-7.7); Basophil# 0.05 X10^3/uL; Basophil% 1.3 % (0-1); Eosinophil# 0.61 X10^3/uL; Eosinophils% 16.1 % (0-5); Hematocrit 25.7 % (37-47); Lymphocyte # 1.05 X10^3/ul (0.83-4.51); Lymphocyte % 27.8 % (19-41); Mean Corp Hgb Conc 31.1 g/dL (32-36); Mean Corpuscular Volume 99.6 fL (81-99); Mean Platelet Vol. 9.6 fl (6.2-12.0); Monocyte# 0.16 X10^3/uL; Monocyte% 4.2 % (0-10); NRBC Flagged by Analyzer 0 % (0-5); Neutrophil # 1.89 X10^3/uL (2.7-7.7); Neutrophil % 50.1 % (47-70); POSITIVE MORPHOLOGY YES; Platelet Count 202 K/mm3 (150-450); RBC Distribution Width CV 17.2 % (11.6-14.6); RBC Distribution Width SD 59.8 fl (35.1-43.9); Red Blood Count 2.58 M/mm3 (4.2-5.4); White Blood Count 3.8 K/mm3 (4.4-11.0)
[2021-07-12] MEDS: Ondansetron ODT 4 MG Tablet PO (05:47)
[2021-07-12 05:54] LABS: Differential Indicated SCAN CRITERIA MET
[2021-07-12 06:16] LABS: Differential Comment SCANNED; Hypochromasia 1+; Ovalocyte RARE
[2021-07-12 06:19] VITALS: BP 114/74; PULSE 109
[2021-07-12] MEDS: Alendronate Sodium 70 MG Tablet PO (06:19)
[2021-07-12] MEDS: Sertraline 50 MG Tablet PO (06:19)
[2021-07-12] MEDS: APIXABAN 5 MG TABLET PO ×2 (06:19→16:33)
[2021-07-12] MEDS: Metoprolol(XL)Succ 100 MG Tablet PO (06:19)
[2021-07-12] MEDS: Cholecalciferol (VIT D3) 25 MCG TABLET (1,000 UNITS) PO (06:19)
[2021-07-12 06:21] LABS: Anion Gap 3 (5-15); BUN 24 mg/dL (7-18); BUN/Creat Ratio 30.4 RATIO (10-20); Calcium,Total 7.7 mg/dL (8.5-10.1); Chloride 112 mmol/L (98-107); Creatinine, Serum 0.79 mg/dL (0.55-1.02); EST Glomerular Filtration Rate 74 mL/min (>60); Est Glom Filt Rate - Afr Amer 89 mL/min (>60); Estimated Creatinine Clearance 35.26 ml/min; Glucose 80 mg/dL (74-106); Potassium 4.6 mmol/L (3.5-5.1); Sodium Level 143 mmol/L (136-145)
[2021-07-12] MEDS: Iron Polysaccharide Complex 150 MG CAPSULE PO (09:26)
[2021-07-12] MEDS: predniSONE 5 MG Tablet PO (09:26)
[2021-07-12] MEDS: Ensure Clear 120 ML Liquid PO ×2 (09:27→16:33)
[2021-07-12 16:00] VITALS: BP 78/50; PULSE 103; RESP 17; TEMP 36.9; O2SAT 98
[2021-07-12 17:05] VITALS: BP 89/54; PULSE 84
[2021-07-12 17:07] VITALS: BP 92/52; PULSE 110
[2021-07-12] MEDS: Mirtazapine 15 MG Tablet 7.5 MG PO (20:39)
[2021-07-12] MEDS: Atorvastatin Calcium 40 MG Tablet PO (20:40)
[2021-07-12 20:42] VITALS: RESP 15
[2021-07-13] MEDS: Ondansetron ODT 4 MG Tablet PO (05:51)
[2021-07-13 06:24] VITALS: BP 126/79; PULSE 93
[2021-07-13] MEDS: Metoprolol(XL)Succ 100 MG Tablet PO (06:24)
[2021-07-13] MEDS: Cholecalciferol (VIT D3) 25 MCG TABLET (1,000 UNITS) PO (06:24)
[2021-07-13] MEDS: APIXABAN 5 MG TABLET PO ×2 (06:25→17:34)
[2021-07-13] MEDS: Sertraline 50 MG Tablet PO (06:25)
[2021-07-13] MEDS: Ensure Clear 120 ML Liquid PO ×2 (08:38→17:34)
[2021-07-13] MEDS: Iron Polysaccharide Complex 150 MG CAPSULE PO (08:38)
[2021-07-13 10:00] VITALS: PULSE 98; RESP 18; O2SAT 98
[2021-07-13 13:38] VITALS: BP 94/59; PULSE 92; RESP 18; TEMP 37.1; O2SAT 99
[2021-07-13] MEDS: Mirtazapine 15 MG Tablet 7.5 MG PO (20:55)
[2021-07-13] MEDS: Atorvastatin Calcium 40 MG Tablet PO (20:55)
[2021-07-14] MEDS: Ondansetron ODT 4 MG Tablet PO (05:43)
[2021-07-14] MEDS: Sertraline 50 MG Tablet PO (06:19)
[2021-07-14 06:20] VITALS: BP 106/73; PULSE 115
[2021-07-14] MEDS: Methotrexate 2.5 MG Tablet 10 MG PO ×2 (06:20→17:01)
[2021-07-14] MEDS: Metoprolol(XL)Succ 100 MG Tablet PO (06:20)
[2021-07-14] MEDS: APIXABAN 5 MG TABLET PO ×2 (06:20→17:02)
[2021-07-14] MEDS: Cholecalciferol (VIT D3) 25 MCG TABLET (1,000 UNITS) PO (06:24)
[2021-07-14 06:29] LABS: Hematocrit 26.1 % (37-47); Hemoglobin 8.1 g/dL (12.0-15.0)
[2021-07-14] MEDS: predniSONE 5 MG Tablet PO (08:32)
[2021-07-14] MEDS: Iron Polysaccharide Complex 150 MG CAPSULE PO (08:32)
[2021-07-14] MEDS: Ensure Clear 120 ML Liquid PO ×2 (08:32→17:02)
[2021-07-14 11:00] VITALS: O2SAT 98
[2021-07-14 15:58] VITALS: BP 100/58; PULSE 80; RESP 16; TEMP 36.7; O2SAT 99
[2021-07-14] MEDS: Mirtazapine 15 MG Tablet 7.5 MG PO (19:41)
[2021-07-14] MEDS: Atorvastatin Calcium 40 MG Tablet PO (19:47)
[2021-07-15] MEDS: Ondansetron ODT 4 MG Tablet PO (06:05)
[2021-07-15 06:39] VITALS: BP 109/59; PULSE 110
[2021-07-15] MEDS: leucovorin 5 MG Tablet PO (06:39)
[2021-07-15] MEDS: Sertraline 50 MG Tablet PO (06:39)
[2021-07-15] MEDS: Metoprolol(XL)Succ 100 MG Tablet PO (06:39)
[2021-07-15] MEDS: Cholecalciferol (VIT D3) 25 MCG TABLET (1,000 UNITS) PO (06:40)
[2021-07-15] MEDS: APIXABAN 5 MG TABLET PO ×2 (06:40→17:34)
[2021-07-15] MEDS: Iron Polysaccharide Complex 150 MG CAPSULE PO (09:22)
[2021-07-15] MEDS: Ensure Clear 120 ML Liquid PO ×2 (09:24→17:34)
--- NOTE | 2021-07-15 12:19 | CASEMGMT ---
Social Work Followed up with BERNARDO to inquire about DC planning. BERNARDO expressed some personal barriers with contacting nonskilled [facility] agencies. She has contacted some other known [facility] agencies and unable to accept pt. BERNARDO would like pt and her to go to [facility], but has not spoken with pt about that plan yet. She was going to come visit today but there was a snow day for her kids school and the goal is to come visit tomorrow. She expressed some frustration with the pt's sons not assisting with the DC plans. Validated feelings and expressed appreciation for her assist with MIL. Although, SW did caution pt's DC date needs to be set soon and have a plan in place. BERNARDO expressed understanding and will keep this worker updated. BERNARDO noted some increased swelling in pt's ankles/feet and therapy reporting her HR increased with exertion and had some concerns about that. SW offered to relay to nursing to get BERNARDO f/u answers. Notified nursing. SW to continue to follow. Concepicon Mann, DUST COLLECTOR TREATER BLENDER / COOK
[2021-07-15 13:32] VITALS: PULSE 115; RESP 18; O2SAT 97
[2021-07-15 15:41] VITALS: BP 93/50; PULSE 108; RESP 12; TEMP 37.1; O2SAT 97
--- NOTE | 2021-07-15 19:48 | PN.TCU_ITS ---
Subjective Subjective Resident seen, examined for regulatory visit. She is sitting in chair, eating supper. She has no new problems, concerns, issues, complaints. She is progressing with therapy. Objective Data Objective Data Vital Signs: Vital Signs Temp Pulse Resp BP Pulse Ox 98.8 F 108 H 12 93/50 L 97 07/15/21 15:41 07/15/21 15:41 07/15/21 15:41 07/15/21 15:41 07/15/21 15:41 Oxygen Delivery Method Room Air Weight: 60.736 kg Body Mass Index (BMI) 22.4 Intake & Output: Intake and Output for Last 24 Hours 07/13/21 07/14/21 07/15/21 23:59 23:59 23:59 Intake Total 720 / 720 840 / 840 930 / 930 Balance 720 / 720 840 / 840 930 / 930 Medical Nutrition Assessment Dietitian: Malnutrition Criteria Met Start: 06/21/21 12:33 Freq: Status: Active Protocol: Document 07/03/21 12:29 ADRIANNA (Rec: 07/03/21 12:29 ADRIANNA [id number]) Nutrition Malnutrition Evidence of Malnutrition Exists Yes Malnutrition (severe): Acute Illness/Injury Evidenced By Suboptimal Energy Intake ( Severe),Weight Loss (Severe) Clinical Problem Acute Disease or Injury Related Malnutrition Etiology severe, acute malnutrition r/t inadequate energy intake d/t acute COVID illness Signs/Symptoms as evidenced by unintentional wt loss of ~11#/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 Continue to provide small portions at meals d/t too much food overwhelms her. Will d/c ensure pudding or magic cup w/ lunch and dinner d/t res refusal. Continue to add sauces, gravies or margarine as able to try to make foods more moist and easier to swallow. Rec continue appetite stimulant. Continue ensure clear at medpass - walters flavor only Lab / Micro Data Result Diagrams: 07/14/21 06:20 07/12/21 05:18 Physical Exam Const alert and oriented x3 General Appearance: cooperative HEENT normocephalic Eyes PERRL and EOMs intact bilaterally Neck supple, no JVD and no carotid bruits Resp normal respiratory effort, normal air movement and clear to auscultation bilaterally Cardio regular rate and regular rhythm GI normal to inspection, nondistended, normoactive bowel sounds, non-tender and non-distended Extremity normal capillary refill General Extremity: Negative for edema Skin no rashes or lesions noted General Skin Exam: no breakdown Psych affect normal Appearance: appropriate Assessment & Plan Assessment/Plan (1) Debility: (2) Weakness: (3) COVID-19: (4) Hypertension: (5) Osteoporosis: (6) Rheumatoid arthritis: (7) Vitamin D deficiency: (8) Atrial fibrillation with rapid ventricular response: (9) Hyperlipidemia: (10) Depression: PLAN: 85 year old female with below past medical history presents with weakness secondary to breakthrough covid19 infection, complicated by atrial fibrillation with rapid ventricular response, admitted to TCU with debility, here for rehabilitation, strengthening, prior to discharge home with . * Debility - PT/OT. * Dysphagia - ST. * Pain - Tylenol 1000mg q6h prn pain (1-10). * Bowel - Miralax 17gm daily prn, Senna/colace 1 tablet bid prn, Dulcolax 10mg daily prn. * Adult immunization - Administer prevnar 13, pneumovax 23, fluzone, covid19 vaccine as appropriate. * DVT prophylaxis - Not necessary, already on Eliquis. * Shortness of breath - Albuterol 2 puffs q4h prn. * Osteoporosis - Alendronate 70mg qwk. * Atrial fibrillation - Metoprolol succinate 100mg daily, Eliquis 5mg bid. * Hyperlipidemia - Atorvastatin 40mg qhs. * Vitamin D deficiency - D3 25mcg daily. * Nutrition - Ensure 120ml po tidcm. * Iron deficiency anemia - Ferrex 150mg daily. * Rheumatoid arthritis - MTX 20mg qwk, Leucovorin 5mg qwk, prednisone 5mg every other day. * Hypertension - Metoprolol succinate 100mg daily. * Skin irritation - Calmoseptine topical bid prn. * Nausea - Zofran 4mg q8h prn. * Depression - Sertraline 50mg daily, stable chronic prison use, GDR not recommended. * Diarrhea - Loperamide 2mg q6h prn. * Appetite loss - Mirtazapine 7.5mg qhs. * Dry nares - Sodium 1 spray nasal tid prn. Capacity Capacity Assessment Tool Can the patient make a choice & communicate that choice?: Yes Can the patient understand benefits, risks and alternatives?: Yes Can the patient make a logical, rational choice?: Yes Is the choice the patient makes consistent w/ their values?: Yes Is there an impending, emergent risk to the patient?: No Does the patient have an Advance Directive?: Yes Is there a Surrogate Available?: Yes i.e. HCPOA: Yes i.e. close relative (spouse, child, parent, sibling)?: Yes
[2021-07-15] MEDS: Mirtazapine 15 MG Tablet 7.5 MG PO (20:05)
[2021-07-15] MEDS: Atorvastatin Calcium 40 MG Tablet PO (20:06)
[2021-07-16] MEDS: Ondansetron ODT 4 MG Tablet PO (05:51)
[2021-07-16 05:56] LABS: Hematocrit 25.7 % (37-47)
[2021-07-16] MEDS: Sertraline 50 MG Tablet PO (06:16)
[2021-07-16] MEDS: APIXABAN 5 MG TABLET PO ×2 (06:16→17:07)
[2021-07-16] MEDS: Cholecalciferol (VIT D3) 25 MCG TABLET (1,000 UNITS) PO (06:16)
[2021-07-16 06:17] VITALS: BP 103/56; PULSE 108
[2021-07-16] MEDS: Metoprolol(XL)Succ 100 MG Tablet PO (06:17)
[2021-07-16] MEDS: predniSONE 5 MG Tablet PO (09:32)
[2021-07-16] MEDS: Iron Polysaccharide Complex 150 MG CAPSULE PO (09:32)
[2021-07-16] MEDS: Ensure Clear 120 ML Liquid PO ×3 (09:33→17:08)
[2021-07-16 14:15] VITALS: BP 91/56; PULSE 68; RESP 16; TEMP 37.1
--- NOTE | 2021-07-16 15:44 | CASEMGMT ---
Addendum entered by Concepcion Mann 07/17/21 15:14: Contacted Osman at [facility]. She states the team will need about a week or so to get the room ready but will speak with her team about a 07/23 discharge and notify this worker with the outcome. SW to continue to follow. Addendum entered by Concepcion Mann 07/17/21 08:24: Followed up with DIL and sons. Pt and agreed to transfer to [facility] AL together. DIL unsure when apt will be ready to move [facility]. [facility]. Will await determination before issuing NOMNC. Original Note: Social Work Saw two sons and DIL entering unit to visit pt. SW to follow up tomorrow. Will issue DC for 07/23. ROMMEL Crawford
[2021-07-16] MEDS: Mirtazapine 15 MG Tablet 7.5 MG PO (19:49)
[2021-07-16] MEDS: Atorvastatin Calcium 40 MG Tablet PO (19:50)
[2021-07-16 20:11] VITALS: PULSE 111; RESP 16; O2SAT 93
[2021-07-17] MEDS: Ondansetron ODT 4 MG Tablet PO (05:10)
[2021-07-17 05:38] VITALS: BP 118/74; PULSE 103
[2021-07-17] MEDS: Sertraline 50 MG Tablet PO (05:38)
[2021-07-17] MEDS: APIXABAN 5 MG TABLET PO ×2 (05:38→16:56)
[2021-07-17] MEDS: Metoprolol(XL)Succ 100 MG Tablet PO (05:38)
[2021-07-17] MEDS: Cholecalciferol (VIT D3) 25 MCG TABLET (1,000 UNITS) PO (05:39)
[2021-07-17] MEDS: Ensure Clear 120 ML Liquid PO ×2 (09:47→16:55)
[2021-07-17] MEDS: Iron Polysaccharide Complex 150 MG CAPSULE PO (09:48)
[2021-07-17 13:56] VITALS: BP 95/62; PULSE 71; RESP 18; TEMP 36.8; O2SAT 93
[2021-07-17] MEDS: Mirtazapine 15 MG Tablet 7.5 MG PO (21:14)
[2021-07-17] MEDS: Atorvastatin Calcium 40 MG Tablet PO (21:14)
[2021-07-18] MEDS: Ondansetron ODT 4 MG Tablet PO (05:19)
[2021-07-18 05:20] VITALS: BP 118/72; PULSE 104
[2021-07-18 06:14] VITALS: PULSE 104
[2021-07-18] MEDS: Sertraline 50 MG Tablet PO (06:14)
[2021-07-18] MEDS: Metoprolol(XL)Succ 100 MG Tablet PO (06:14)
[2021-07-18] MEDS: APIXABAN 5 MG TABLET PO ×2 (06:14→16:54)
[2021-07-18] MEDS: Cholecalciferol (VIT D3) 25 MCG TABLET (1,000 UNITS) PO (06:14)
[2021-07-18] MEDS: Furosemide 40 MG Tablet PO (08:22)
[2021-07-18] MEDS: predniSONE 5 MG Tablet 2.5 MG PO (08:22)
[2021-07-18] MEDS: Iron Polysaccharide Complex 150 MG CAPSULE PO (08:23)
[2021-07-18] MEDS: Ensure Clear 120 ML Liquid PO ×3 (08:23→16:55)
[2021-07-18] MEDS: Potassium Chloride Oral Tablet 20 MEQ PO (08:25)
[2021-07-18 14:34] VITALS: BP 86/51; PULSE 115; RESP 17; TEMP 36.6; O2SAT 98
[2021-07-18] MEDS: Mirtazapine 15 MG Tablet 7.5 MG PO (20:52)
[2021-07-18] MEDS: Atorvastatin Calcium 40 MG Tablet PO (20:52)
[2021-07-18 21:00] VITALS: PULSE 112; RESP 16; O2SAT 98
[2021-07-19 05:43] LABS: Absolute Lymphocyte Count 0.84 X10^3/uL (0.83-4.51); Absolute Neutrophil Count 4.4 X10^3/uL (2.0-7.7); Basophil# 0.04 X10^3/uL; Basophil% 0.6 % (0-1); Eosinophil# 0.64 X10^3/uL; Eosinophils% 10.4 % (0-5); Hematocrit 23.3 % (37-47); Hemoglobin 7.2 g/dL (12.0-15.0); Lymphocyte # 0.84 X10^3/ul (0.83-4.51); Lymphocyte % 13.6 % (19-41); Mean Corp Hgb Conc 30.9 g/dL (32-36); Mean Corpuscular Volume 100.4 fL (81-99); Mean Platelet Vol. 9.4 fl (6.2-12.0); Monocyte# 0.17 X10^3/uL; Monocyte% 2.8 % (0-10); NRBC Flagged by Analyzer 0 % (0-5); Neutrophil # 4.43 X10^3/uL (2.7-7.7); POSITIVE MORPHOLOGY YES; Platelet Count 265 K/mm3 (150-450); RBC Distribution Width CV 18.6 % (11.6-14.6); RBC Distribution Width SD 66.1 fl (35.1-43.9); Red Blood Count 2.32 M/mm3 (4.2-5.4); White Blood Count 6.2 K/mm3 (4.4-11.0)
[2021-07-19 05:44] LABS: Differential Indicated SCAN CRITERIA MET
[2021-07-19] MEDS: Ondansetron ODT 4 MG Tablet PO (05:53)
[2021-07-19 06:13] LABS: Anion Gap 1 (5-15); BUN 25 mg/dL (7-18); BUN/Creat Ratio 28.9 RATIO (10-20); Calcium,Total 7.2 mg/dL (8.5-10.1); Chloride 111 mmol/L (98-107); Creatinine, Serum 0.86 mg/dL (0.55-1.02); EST Glomerular Filtration Rate 67 mL/min (>60); Est Glom Filt Rate - Afr Amer 81 mL/min (>60); Glucose 88 mg/dL (74-106); Potassium 4.4 mmol/L (3.5-5.1); Sodium Level 139 mmol/L (136-145)
[2021-07-19 06:20] LABS: Differential Comment SCANNED; Ovalocyte 1+
[2021-07-19 06:22] LABS: Anisocytosis 2+; Macrocytosis 1+; Microcytosis 1+
[2021-07-19] MEDS: Alendronate Sodium 70 MG Tablet PO (06:32)
[2021-07-19 07:34] VITALS: BP 102/65; PULSE 113
[2021-07-19 07:36] VITALS: PULSE 113
[2021-07-19] MEDS: Cholecalciferol (VIT D3) 25 MCG TABLET (1,000 UNITS) PO (07:36)
[2021-07-19] MEDS: Metoprolol(XL)Succ 100 MG Tablet PO (07:36)
[2021-07-19] MEDS: Furosemide 40 MG Tablet PO (07:37)
[2021-07-19] MEDS: APIXABAN 5 MG TABLET PO ×2 (07:37→17:23)
[2021-07-19] MEDS: Sertraline 50 MG Tablet PO (07:37)
[2021-07-19] MEDS: Iron Polysaccharide Complex 150 MG CAPSULE PO (09:02)
[2021-07-19] MEDS: Potassium Chloride Oral Tablet 20 MEQ PO (09:02)
[2021-07-19] MEDS: Ensure Clear 120 ML Liquid PO ×2 (09:03→12:26)
--- NOTE | 2021-07-19 09:15 | NURSING ---
PT COUGHING ON 20 MEQ K-DUR AND HAVING HARD TIME GETTING DOWN. LUNGS CLEAR. PT STATED SHE WAS OK AND REQUESTED TO HAVE SMALLER PILL. COMMUNICATION SENT TO PHARMACY AND RN AWARE.
--- NOTE | 2021-07-19 09:21 | CASEMGMT ---
Addendum entered by Concepcion Mann 07/19/21 10:46: Received return phone call. Admissions stated the goal is for room to be ready end of next week (07/26) and she will contact this worker Thursday (07/22) with update and confirm date. Updated IDT. Will continue to follow. Original Note: Social Work Followed up with [facility] to inquire about DC date for pt. Left message. ROMMEL Crawford NEW CAR MAKE READY MECHANIC
[2021-07-19 15:13] VITALS: BP 91/57; PULSE 166; RESP 20; TEMP 36.9; O2SAT 99
[2021-07-19] MEDS: Atorvastatin Calcium 40 MG Tablet PO (20:30)
[2021-07-19] MEDS: Mirtazapine 15 MG Tablet 7.5 MG PO (20:31)
[2021-07-20] MEDS: Ondansetron ODT 4 MG Tablet PO (05:05)
[2021-07-20 06:00] VITALS: BP 119/71; PULSE 103
[2021-07-20] MEDS: Metoprolol(XL)Succ 100 MG Tablet PO (06:00)
[2021-07-20] MEDS: Furosemide 40 MG Tablet PO (06:00)
[2021-07-20] MEDS: APIXABAN 5 MG TABLET PO ×2 (06:00→18:00)
[2021-07-20] MEDS: Sertraline 50 MG Tablet PO (06:00)
[2021-07-20] MEDS: Cholecalciferol (VIT D3) 25 MCG TABLET (1,000 UNITS) PO (06:00)
[2021-07-20] MEDS: Potassium Chloride Oral Tablet 10 MEQ 20 MEQ PO (08:00)
[2021-07-20] MEDS: predniSONE 5 MG Tablet 2.5 MG PO (08:00)
[2021-07-20] MEDS: Iron Polysaccharide Complex 150 MG CAPSULE PO (08:00)
[2021-07-20] MEDS: Ensure Clear 120 ML Liquid PO (17:45)
[2021-07-20] MEDS: Atorvastatin Calcium 40 MG Tablet PO (22:00)
[2021-07-20] MEDS: Mirtazapine 15 MG Tablet 7.5 MG PO (22:00)
[2021-07-21] MEDS: Ondansetron ODT 4 MG Tablet PO (05:58)
[2021-07-21 06:44] LABS: Hematocrit 23.8 % (37-47); Hemoglobin 7.2 g/dL (12.0-15.0)
[2021-07-21] MEDS: Furosemide 40 MG Tablet PO (06:49)
[2021-07-21] MEDS: Cholecalciferol (VIT D3) 25 MCG TABLET (1,000 UNITS) PO (06:49)
[2021-07-21] MEDS: APIXABAN 5 MG TABLET PO ×2 (06:49→17:15)
[2021-07-21 06:50] VITALS: BP 131/77; PULSE 116
[2021-07-21] MEDS: Sertraline 50 MG Tablet PO (06:50)
[2021-07-21] MEDS: Metoprolol(XL)Succ 100 MG Tablet PO (06:50)
[2021-07-21] MEDS: Methotrexate 2.5 MG Tablet 10 MG PO ×2 (06:51→17:16)
[2021-07-21] MEDS: Potassium Chloride Oral Tablet 10 MEQ 20 MEQ PO (10:05)
[2021-07-21] MEDS: Iron Polysaccharide Complex 150 MG CAPSULE PO (10:05)
[2021-07-21] MEDS: Cephalexin 500 MG Capsule PO ×2 (11:28→17:16)
[2021-07-21 13:40] VITALS: BP 103/63; PULSE 72; RESP 18; TEMP 36.9; O2SAT 96
[2021-07-21] MEDS: Ensure Clear 120 ML Liquid PO (17:14)
[2021-07-21] MEDS: Atorvastatin Calcium 40 MG Tablet PO (21:47)
[2021-07-21] MEDS: Mirtazapine 15 MG Tablet 7.5 MG PO (21:48)
[2021-07-22] MEDS: Ondansetron ODT 4 MG Tablet PO (05:33)
[2021-07-22] MEDS: Cephalexin 500 MG Capsule PO ×2 (06:21→17:44)
[2021-07-22 06:22] VITALS: BP 108/63; PULSE 117
[2021-07-22] MEDS: Cholecalciferol (VIT D3) 25 MCG TABLET (1,000 UNITS) PO (06:22)
[2021-07-22] MEDS: Metoprolol(XL)Succ 100 MG Tablet PO (06:22)
[2021-07-22] MEDS: Furosemide 40 MG Tablet PO (06:22)
[2021-07-22] MEDS: APIXABAN 5 MG TABLET PO ×2 (06:22→17:44)
[2021-07-22] MEDS: Sertraline 50 MG Tablet PO (06:22)
[2021-07-22] MEDS: leucovorin 5 MG Tablet PO (06:23)
[2021-07-22] MEDS: predniSONE 5 MG Tablet 2.5 MG PO (09:41)
[2021-07-22] MEDS: Iron Polysaccharide Complex 150 MG CAPSULE PO (09:41)
[2021-07-22] MEDS: Potassium Chloride Oral Tablet 10 MEQ 20 MEQ PO (09:41)
[2021-07-22] MEDS: Ensure Clear 120 ML Liquid PO ×2 (09:46→11:29)
[2021-07-22 14:59] VITALS: BP 95/52; PULSE 60; RESP 16; TEMP 36.9; O2SAT 99
--- NOTE | 2021-07-22 16:41 | CASEMGMT ---
Social Work Spoke with Admissions at [facility] to follow up on apartment readiness for DC. Admissions still was not sure and would call this worker back. Still have not received a f/u call. Will continue to contact. ROMMEL CrawfordW
[2021-07-22] MEDS: Atorvastatin Calcium 40 MG Tablet PO (20:05)
[2021-07-22] MEDS: Mirtazapine 15 MG Tablet 7.5 MG PO (20:06)
[2021-07-22 20:13] VITALS: PULSE 117; RESP 16; O2SAT 97
[2021-07-23 05:53] VITALS: BP 119/71; PULSE 118
[2021-07-23 05:54] LABS: Hematocrit 23.7 % (37-47); Hemoglobin 7.4 g/dL (12.0-15.0)
[2021-07-23] MEDS: Ondansetron ODT 4 MG Tablet PO (05:54)
[2021-07-23 06:37] VITALS: PULSE 118
[2021-07-23] MEDS: APIXABAN 5 MG TABLET PO ×2 (06:37→16:44)
[2021-07-23] MEDS: Cholecalciferol (VIT D3) 25 MCG TABLET (1,000 UNITS) PO (06:37)
[2021-07-23] MEDS: Cephalexin 500 MG Capsule PO ×2 (06:37→16:44)
[2021-07-23] MEDS: Metoprolol(XL)Succ 100 MG Tablet PO (06:37)
[2021-07-23] MEDS: Sertraline 50 MG Tablet PO (06:37)
[2021-07-23] MEDS: Furosemide 40 MG Tablet PO (06:37)
[2021-07-23] MEDS: Ensure Clear 120 ML Liquid PO ×2 (09:04→16:45)
[2021-07-23] MEDS: Potassium Chloride Oral Tablet 10 MEQ 20 MEQ PO (09:05)
[2021-07-23] MEDS: Iron Polysaccharide Complex 150 MG CAPSULE PO (09:05)
[2021-07-23 10:00] VITALS: RESP 18; O2SAT 99
[2021-07-23] MEDS: Acetaminophen 500 MG Tablet 1000 MG PO (10:17)
[2021-07-23 14:59] VITALS: BP 90/57; PULSE 82; RESP 20; TEMP 36.3; O2SAT 99
--- NOTE | 2021-07-23 15:35 | CASEMGMT ---
Social Work Several back and forth conversations to get finalized DC date with [facility]. Attempted to call nursing home assistant administrator to get further updates on AL room readiness. Admissions, Osman, called this worker and stated the AL room would not be ready but they can move pt into another room for a short period of time without . Osman spoke to DIL to confirm this and DIL agreed, however, [facility] continue to change their minds on the DC date. First they approved for DC 07/24, but that was too short of notice for DC. Then they stated whatever date works for the DIL. Spoke with the DIL and she requested 07/27. Updated Osman, but she stated they have too many admissions and the nurse will kill her if she added another admission and has to speak with nurse to see when she can admit and would call this worker back. Will await clarification. Concepcion Mann, ROMMEL [facility]
--- NOTE | 2021-07-23 16:11 | NURSING ---
Resident and son, Mark, notified of staff member testing positive for COVID.
--- NOTE | 2021-07-23 17:00 | CASEMGMT ---
Social Work Requested assistance from Sustainability Engineer to assist with discharge challenges. After Sustainability Engineer spoke with Osman at [facility], her request is for pt to DC Wednesday 07/26, if able. SW contacted BERNARDO to inquire and explain the change of DC date previously discussed. DIL stated that is not a feasible day for DC due to several family conflicts and still requesting DC 07/27. Updated Sustainability Engineer. Will continue to follow. Concepcion Mann, ROMMEL BENNETTW
--- NOTE | 2021-07-23 17:52 | CASEMGMT ---
Late entry for 1657: Notified by BEBA Javier of challenges experienced in establishing transition of care to [facility] including AL room availability and receiving communication from [facility] admission's director Osman. This Tube And Rod Straightener attempted to contact [facility] warranty administrator who was out of the office, and the REBECCA Quevedo who then referred to the Recruiting Consultant of AL Jazmyne Garcia who was no longer in the office. Message left for warranty administrator to phone this mortgage or loan underwriter and voicemail left for Jazmyne Garcia to return this mortgage or loan underwriter's call. Message left with temporary receptionist for Osman, Admission's Director, to call this mortgage or loan underwriter but no return call received. Called Osman on her cell phone number successfully. Osman explained that the AL room that the patient and her were to be moved to has not been approved by her administration to be used. The alternate room the patient could be placed in would be an AL room. Discussed discharge date of Thursday which Osman continue to state is no longer a feasible admit date due to their staffing. Osman agreeable to a Thursday admission only and declined a Thursday admission. Osman states she is aware of the urgency in transitioning this pt to the appropriate LOC. [facility] in AM to collaborate on pt's transition to AL. Marley Ratliff RN CM
[2021-07-23] MEDS: Mirtazapine 15 MG Tablet 7.5 MG PO (20:10)
[2021-07-23] MEDS: Atorvastatin Calcium 40 MG Tablet PO (20:10)
[2021-07-24 05:27] VITALS: BP 129/54; PULSE 120
[2021-07-24] MEDS: Metoprolol(XL)Succ 100 MG Tablet PO (05:27)
[2021-07-24] MEDS: Furosemide 40 MG Tablet PO (05:27)
[2021-07-24] MEDS: Cholecalciferol (VIT D3) 25 MCG TABLET (1,000 UNITS) PO (05:27)
[2021-07-24] MEDS: Sertraline 50 MG Tablet PO (05:27)
[2021-07-24] MEDS: APIXABAN 5 MG TABLET PO ×2 (05:28→18:11)
[2021-07-24] MEDS: Cephalexin 500 MG Capsule PO ×2 (05:28→18:11)
[2021-07-24] MEDS: Ensure Clear 120 ML Liquid PO (08:31)
[2021-07-24] MEDS: Iron Polysaccharide Complex 150 MG CAPSULE PO (08:32)
[2021-07-24] MEDS: Potassium Chloride Oral Tablet 10 MEQ 20 MEQ PO (08:32)
[2021-07-24] MEDS: predniSONE 5 MG Tablet 2.5 MG PO (08:32)
--- NOTE | 2021-07-24 13:06 | CASEMGMT ---
Addendum entered by Concepcion Mann 07/24/21 14:36: Received return call from asset administrator confirming DC 07/28. Original Note: Social Work Received update from Gas Well Drilling Manager after she spoke to School Boat Driver that they are able to accept pt Friday 07/28. Spoke with DIL to inquire about DC 07/28 - DIL agreeable. She is also agreeable to [facility] PT/OT. Left message with medical receptionist biller to tell the asset administrator and admissions that DC date is confirmed 07/28 and requested return phone call to confirm. Referral made to [facility] PT/OT. Family to transport pt. No DME needs identified. Plan: DC to [facility] 07/28, [facility] PT/OT Concepcion Mann, ROMMEL BENNETTW
[2021-07-24 13:28] VITALS: BP 111/64; PULSE 91; RESP 16; TEMP 36.7; O2SAT 97
--- NOTE | 2021-07-24 19:58 | DS.PCM_ITS ---
Providers Date of Admission: 06/20/21 Primary Care Physician: Dr. Delfin Kamara MD Reason For Visit: GENERAL WEAKNESS Diagnosis Discharge Diagnosis (1) Debility: Status: Acute Code(s): R53.81 - Other malaise (2) Weakness: Status: Acute Code(s): R53.1 - Weakness (3) COVID-19: Status: Acute Code(s): U07.1 - COVID-19 (4) Hypertension: Status: Chronic Code(s): I10 - Essential (primary) hypertension (5) Osteoporosis: Status: Acute Code(s): M81.0 - Age-related osteoporosis without current pathological fracture (6) Rheumatoid arthritis: Status: Acute Code(s): M06.9 - Rheumatoid arthritis, unspecified (7) Vitamin D deficiency: Status: Acute Code(s): E55.9 - Vitamin D deficiency, unspecified (8) Atrial fibrillation with rapid ventricular response: Status: Acute Code(s): I48.91 - Unspecified atrial fibrillation (9) Hyperlipidemia: Status: Acute Code(s): E78.5 - Hyperlipidemia, unspecified (10) Depression: Status: Acute Code(s): F32.A - Depression, unspecified Medications at Discharge Home Medications leucovorin calcium 5 mg tablet 5 mg PO MO tab 07/13/17 cholecalciferol (vitamin D3) 25 mcg (1,000 unit) tablet 25 mcg PO DAILY 03/05/20 apixaban 5 mg PO BID 06/28/20 atorvastatin 40 mg PO QHS 06/28/20 prednisone 5 mg tablet 5 mg PO Q OTHER DAY tab 03/12/21 ondansetron 4 mg PO Q8H PRN #10 tab 06/18/21 sertraline 50 mg PO DAILY 06/18/21 acetaminophen 1,000 mg PO Q6H PRN PRN #0 tab 07/24/21 furosemide 40 mg PO DAILY 30 Days #30 tab 07/24/21 methotrexate sodium 10 mg PO Hairston@0600 #0 tab 07/24/21 methotrexate sodium 10 mg PO Hairston@1800 #0 tab 07/24/21 metoprolol succinate 100 mg PO DAILY 30 Days #30 tab 07/24/21 mirtazapine 7.5 mg PO QHS 30 Days #15 tab 07/24/21 polysaccharide iron complex [Ferrex 150] 150 mg PO DAILYCM 30 Days #30 cap 07/24/21 potassium chloride 20 meq PO DAILYCM 30 Days #60 tab 07/24/21 Hospital Course Operations None Procedures None Summary of Care Provided Minutes Spent on Discharge: 35 Hospital Course: 85 year old female with below past medical history presents with weakness secondary to breakthrough covid19 infection, complicated by atrial fibrillation with rapid ventricular response, admitted to TCU with debility, here for rehabilitation, strengthening, prior to discharge home with . Discharge to [facility] 07/28/2021, [facility] PT/OT. Physical Exam Const alert and oriented x3 General Appearance: cooperative HEENT normocephalic Eyes PERRL and EOMs intact bilaterally Neck supple, no JVD and no carotid bruits Resp normal respiratory effort, normal air movement and clear to auscultation bilaterally Cardio regular rate and regular rhythm GI normal to inspection, nondistended, normoactive bowel sounds, non-tender and non-distended Extremity normal capillary refill General Extremity: Negative for edema Skin no rashes or lesions noted General Skin Exam: no breakdown Psych affect normal Appearance: appropriate Medical Records Data Medical Nutrition Assessment Dietitian: Malnutrition Criteria Met Start: 06/21/21 12:33 Freq: Status: Active Protocol: Document 07/03/21 12:29 [facility] (Rec: 07/03/21 12:29 [facility] [id number]) Nutrition Malnutrition Evidence of Malnutrition Exists Yes Malnutrition (severe): Acute Illness/Injury Evidenced By Suboptimal Energy Intake ( Severe),Weight Loss (Severe) Clinical Problem Acute Disease or Injury Related Malnutrition Etiology severe, acute malnutrition r/t inadequate energy intake d/t acute COVID illness Signs/Symptoms as evidenced by unintentional wt loss of ~11#/8% x 1 month station captain, 14% wt loss x 1 year station captain, and estimated PO intake meeting <75% of estimated energy needs >1 month - po intake starting to improve per res Status Active Problem Recommendation Dietitian Recommendations/Changes Consult ENGINEER SYSTEMS d/t res DIL thinks res chokes on food d/t too dry. Continue to provide small portions at meals d/t too much food overwhelms her. Will d/c ensure pudding or magic cup w/ lunch and dinner d/t res refusal. Continue to add sauces, gravies or margarine as able to try to make foods more moist and easier to swallow. Rec continue appetite stimulant. Continue ensure clear at medpass - walters flavor only Weight / BMI Weight Weight: 65.907 kg Body Mass Index (BMI) 22.4 ABG / Lab / Microbiology Data Result Diagrams: 07/23/21 05:20 07/19/21 05:23 Microbiology: Microbiology 07/16/21 12:45 Wound - Arm Right Gram Stain - Final 07/16/21 12:45 Wound - Arm Right Wound Culture - Final Coag Negative Staph Gram positive boubacar D/C Instructions Discharge Diet: No restrictions Discharge Activity: Return to Normal Activity, May Shower and Use Walker Weight Bearing Status: Weight bearing as tolerated Call your doctor if you observe: Fever of 101 or Higher, Inability to urinate, Inability to have a bowel movement, Shortness of breath, Dizziness, Fainting spells, Swelling in the ankles, Chest pain and Uncontrolled pain Additional Instructions: Discharge to [facility] 07/28/2021, [facility] PT/OT. Please Follow Up With: MD Annemarie When: As scheduled. Meaningful Use Info Meaningful Use Diagnoses (Choose all that apply): None applicable Discharge Plan Admission Admit Date/Time: 06/20/21 17:18 Primary Reason for Your Visit: Debility. Attending Provider: Fish Krause Chi Primary Care Provider: Delfin Kamara Instructions Additional Instructions / Restrictions: Discharge to [facility] 07/28/2021, [facility] PT/OT. Discharge Orders/Prescriptions Prescriptions: New furosemide 40 mg Tablet 40 mg PO DAILY 30 Days Qty: 30 RF: 0 polysaccharide iron complex [Ferrex 150] 150 mg iron Capsule 150 mg PO DAILYCM 30 Days Qty: 30 RF: 0 metoprolol succinate 100 mg Tablet Extended Release 24 Hr 100 mg PO DAILY 30 Days Qty: 30 RF: 0 acetaminophen 500 mg Tablet 1,000 mg PO Q6H PRN PRN (Reason: Pain Score 1-10) Qty: 0 RF: 0 methotrexate sodium 2.5 mg Tablet 10 mg PO Hairston@1800 Qty: 0 RF: 0 methotrexate sodium 2.5 mg Tablet 10 mg PO Hairston@0600 Qty: 0 RF: 0 mirtazapine 15 mg Tablet 7.5 mg PO QHS 30 Days Qty: 15 RF: 0 potassium chloride 10 mEq Tablet,Er Particles/Crystals 20 meq PO DAILYCM 30 Days Qty: 60 RF: 0 Continued leucovorin calcium 5 mg tablet 5 mg PO MO RF: 0 cholecalciferol (vitamin D3) 25 mcg (1,000 unit) tablet 25 mcg PO DAILY RF: 0 prednisone 5 mg tablet 5 mg PO Q OTHER DAY RF: 0 atorvastatin 40 MG tablet 40 mg PO QHS RF: 0 apixaban 5 MG tablet 5 mg PO BID RF: 0 sertraline 50 mg Tablet 50 mg PO DAILY RF: 0 ondansetron 4 mg tablet,disintegrating 4 mg PO Q8H PRN (Reason: nausea and vomiting) Qty: 10 RF: 0 Discontinued alendronate 70 mg tablet 70 mg PO FR RF: 0 menthol-zinc oxide [Calmoseptine] 0.44-20.6 % ointment 1 applic topical BID PRNRF: 0 mirtazapine 7.5 mg tablet 7.5 mg PO QHS RF: 0 polyethylene glycol 3350 [Miralax] 17 gram/dose powder 17 g PO DAILY PRNRF: 0 acetaminophen 500 mg tablet 500 mg PO Q6H PRNRF: 0 diltiazem HCl 120 mg capsule,extended release 12 hr 120 mg PO Q12H Qty: 1 RF: 0 metoprolol succinate 50 mg tablet extended release 24 hr 50 mg PO DAILY Qty: 1 RF: 0 lisinopril 5 mg tablet 5 mg PO DAILY Qty: 1 RF: 0 methotrexate sodium 2.5 mg tablet 10 mg PO BID RF: 0 albuterol sulfate [Ventolin HFA] 1 INHALER inhaler 2 puff inhalation Q4H PRN PRN (Reason: Wheezing) Qty: 1 RF: 0 Referrals / Follow Up: Delfin Kamara MD [Primary Care Provider] - Radames Sharpe MD [STAFF PHYSICIAN] - (Follow up in 3 months (Family has already made appt)) Disposition Disposition (needs filled in before D/C Order can be placed): Assisted Living
--- NOTE | 2021-07-24 20:20 | TREXTCAR_ITS ---
Diet 06/20/21 17:38 Diet: Regular - General Food consistency:: Regular Liquid Consistency:: Regular/Thin Type of Dietary Supplement:: Diet Comments: small portions - add sauces/gravies/margarine to make foods more moist Routine Orders/Code Status Code Status: DNC Wound(s) RFA: Wound Type: Scab Dressing Change: DOTTIE jenn cleft & inner buttocks: Wound Type: shearing/moisture Dressing Change: Anibal Right Buttocks: Wound Type: Shearing Dressing Change: Anibal Left posterior leg: Wound Type: Abrasion Dressing Change: TITLE EXAMINER Therapies Weight Bearing: Weight bearing as tolerated Extremity Affected:: Bilateral Lower Physical Therapy: Eval and Treat Occupational Therapy: Eval and Treat Problem/Diagnosis (1) Debility: Status: Acute (2) Weakness: Status: Acute (3) COVID-19: Status: Acute (4) Hypertension: Status: Chronic (5) Osteoporosis: Status: Acute (6) Rheumatoid arthritis: Status: Acute (7) Vitamin D deficiency: Status: Acute (8) Atrial fibrillation with rapid ventricular response: Status: Acute (9) Hyperlipidemia: Status: Acute (10) Depression: Status: Acute Allergies/Procedures Done in Hospital Allergies doxycycline Adverse Reaction (Severe, Verified 06/26/21 11:36) GI Upset hydrochlorothiazide Adverse Reaction (Unknown, Verified 06/26/21 11:36) Unknown tramadol HCl [From [facility]] Adverse Reaction (Verified 06/26/21 11:36) Vomiting Procedures: None Type of Care/Length of Stay Estimated LOS: More Than 30 Days Type of Care Needed: Group Home/Assisted Living Rehab Potential: Fair Prognosis: Fair Additional Orders/Day of Discharge Day of Discharge: 07/28/21 Dietary and Speech Recommendations Dietitian Recommendations/Changes: Continue to provide small portions at meals d/t too much food overwhelms her. Continue to add sauces, gravies or margarine as able to try to make foods more moist and easier to swallow. Continue ensure clear at medpass - walters flavor only - consider d/t at time of review if continues >75% of meals. Follow Up Care Please Follow Up With: MD Annemarie Discharge Plan Admission Admit Date/Time: 06/20/21 17:18 Primary Reason for Your Visit: Debility. Attending Provider: Fish Krause Chi Primary Care Provider: Delfin Kamara Instructions Additional Instructions / Restrictions: Discharge to [facility] 07/28/2021, [facility] PT/OT. Discharge Orders/Prescriptions Prescriptions: New furosemide 40 mg Tablet 40 mg PO DAILY 30 Days Qty: 30 RF: 0 polysaccharide iron complex [Ferrex 150] 150 mg iron Capsule 150 mg PO DAILYCM 30 Days Qty: 30 RF: 0 metoprolol succinate 100 mg Tablet Extended Release 24 Hr 100 mg PO DAILY 30 Days Qty: 30 RF: 0 acetaminophen 500 mg Tablet 1,000 mg PO Q6H PRN PRN (Reason: Pain Score 1-10) Qty: 0 RF: 0 methotrexate sodium 2.5 mg Tablet 10 mg PO Hairston@1800 Qty: 0 RF: 0 methotrexate sodium 2.5 mg Tablet 10 mg PO Hairston@0600 Qty: 0 RF: 0 mirtazapine 15 mg Tablet 7.5 mg PO QHS 30 Days Qty: 15 RF: 0 potassium chloride 10 mEq Tablet,Er Particles/Crystals 20 meq PO DAILYCM 30 Days Qty: 60 RF: 0 Continued leucovorin calcium 5 mg tablet 5 mg PO MO RF: 0 cholecalciferol (vitamin D3) 25 mcg (1,000 unit) tablet 25 mcg PO DAILY RF: 0 prednisone 5 mg tablet 5 mg PO Q OTHER DAY RF: 0 atorvastatin 40 MG tablet 40 mg PO QHS RF: 0 apixaban 5 MG tablet 5 mg PO BID RF: 0 sertraline 50 mg Tablet 50 mg PO DAILY RF: 0 ondansetron 4 mg tablet,disintegrating 4 mg PO Q8H PRN (Reason: nausea and vomiting) Qty: 10 RF: 0 Discontinued alendronate 70 mg tablet 70 mg PO FR RF: 0 menthol-zinc oxide [Calmoseptine] 0.44-20.6 % ointment 1 applic topical BID PRNRF: 0 mirtazapine 7.5 mg tablet 7.5 mg PO QHS RF: 0 polyethylene glycol 3350 [Miralax] 17 gram/dose powder 17 g PO DAILY PRNRF: 0 acetaminophen 500 mg tablet 500 mg PO Q6H PRNRF: 0 diltiazem HCl 120 mg capsule,extended release 12 hr 120 mg PO Q12H Qty: 1 RF: 0 metoprolol succinate 50 mg tablet extended release 24 hr 50 mg PO DAILY Qty: 1 RF: 0 lisinopril 5 mg tablet 5 mg PO DAILY Qty: 1 RF: 0 methotrexate sodium 2.5 mg tablet 10 mg PO BID RF: 0 albuterol sulfate [Ventolin HFA] 1 INHALER inhaler 2 puff inhalation Q4H PRN PRN (Reason: Wheezing) Qty: 1 RF: 0 Referrals / Follow Up: Delfin Kamara MD [Primary Care Provider] - Radames Sharpe MD [STAFF PHYSICIAN] - (Follow up in 3 months (Family has already made appt)) Disposition Disposition (needs filled in before D/C Order can be placed): Assisted Living
[2021-07-24 20:30] VITALS: PULSE 119; RESP 16; O2SAT 95
[2021-07-24] MEDS: Atorvastatin Calcium 40 MG Tablet PO (20:33)
[2021-07-24] MEDS: Mirtazapine 15 MG Tablet 7.5 MG PO (20:33)
[2021-07-25 05:47] LABS: Hematocrit 23.8 % (37-47); Hemoglobin 7.3 g/dL (12.0-15.0)
[2021-07-25 06:09] VITALS: BP 130/82; PULSE 118
[2021-07-25] MEDS: Ondansetron ODT 4 MG Tablet PO (06:09)
[2021-07-25 07:28] VITALS: PULSE 118
[2021-07-25] MEDS: Metoprolol(XL)Succ 100 MG Tablet PO ×2 (07:28→17:21)
[2021-07-25] MEDS: Cephalexin 500 MG Capsule PO ×2 (07:28→17:23)
[2021-07-25] MEDS: Cholecalciferol (VIT D3) 25 MCG TABLET (1,000 UNITS) PO (07:28)
[2021-07-25] MEDS: Sertraline 50 MG Tablet PO (07:28)
[2021-07-25] MEDS: APIXABAN 5 MG TABLET PO ×2 (07:29→17:21)
[2021-07-25] MEDS: Furosemide 40 MG Tablet PO (07:29)
[2021-07-25] MEDS: Iron Polysaccharide Complex 150 MG CAPSULE PO (08:47)
[2021-07-25] MEDS: Potassium Chloride Oral Tablet 10 MEQ 20 MEQ PO (08:47)
[2021-07-25] MEDS: Ensure Clear 120 ML Liquid PO ×3 (08:49→17:23)
[2021-07-25 10:00] VITALS: RESP 16; O2SAT 95
[2021-07-25 13:04] VITALS: BP 101/60; PULSE 98; RESP 16; TEMP 36.9; O2SAT 100
--- NOTE | 2021-07-25 14:00 | NURSING ---
Resident and son, Mark, notified of a resident on the unit testing positive for COVID.
[2021-07-25 17:21] VITALS: PULSE 94
[2021-07-25] MEDS: Mirtazapine 15 MG Tablet 7.5 MG PO (21:06)
[2021-07-25] MEDS: Atorvastatin Calcium 40 MG Tablet PO (21:06)
[2021-07-25] MEDS: Acetaminophen 500 MG Tablet 1000 MG PO (21:08)
[2021-07-26] MEDS: Alendronate Sodium 70 MG Tablet PO (05:29)
[2021-07-26 05:30] VITALS: BP 124/85; PULSE 116
[2021-07-26 06:18] VITALS: PULSE 116
[2021-07-26] MEDS: Cholecalciferol (VIT D3) 25 MCG TABLET (1,000 UNITS) PO (06:18)
[2021-07-26] MEDS: Sertraline 50 MG Tablet PO (06:18)
[2021-07-26] MEDS: APIXABAN 5 MG TABLET PO ×2 (06:18→17:46)
[2021-07-26] MEDS: Metoprolol(XL)Succ 100 MG Tablet PO ×2 (06:18→17:47)
[2021-07-26] MEDS: Cephalexin 500 MG Capsule PO ×2 (06:18→17:47)
[2021-07-26] MEDS: Iron Polysaccharide Complex 150 MG CAPSULE PO (08:50)
[2021-07-26] MEDS: Ensure Clear 120 ML Liquid PO ×2 (08:50→13:31)
--- NOTE | 2021-07-26 11:58 | MDS.RN ---
BIMS and PHQ-9 completed by medical social worker on date.
--- NOTE | 2021-07-26 13:27 | MDS.RN ---
Completed pain interview for SHIRLEY 07/28/21
[2021-07-26 14:00] VITALS: BP 90/56; PULSE 77; RESP 16; TEMP 37.2; O2SAT 100
[2021-07-26 17:47] VITALS: PULSE 77
[2021-07-26] MEDS: Mirtazapine 15 MG Tablet 7.5 MG PO (20:20)
[2021-07-26] MEDS: Atorvastatin Calcium 40 MG Tablet PO (20:21)
[2021-07-26 23:14] VITALS: PULSE 110; RESP 16; O2SAT 97
[2021-07-27] MEDS: Ondansetron ODT 4 MG Tablet PO (05:31)
[2021-07-27] MEDS: Sertraline 50 MG Tablet PO (05:32)
[2021-07-27] MEDS: Cholecalciferol (VIT D3) 25 MCG TABLET (1,000 UNITS) PO (05:32)
[2021-07-27] MEDS: Cephalexin 500 MG Capsule PO ×2 (05:32→17:03)
[2021-07-27] MEDS: APIXABAN 5 MG TABLET PO ×2 (05:32→17:03)
[2021-07-27 05:33] VITALS: BP 128/74; PULSE 115
[2021-07-27] MEDS: Metoprolol(XL)Succ 100 MG Tablet PO ×2 (05:33→17:03)
[2021-07-27] MEDS: Iron Polysaccharide Complex 150 MG CAPSULE PO (08:52)
[2021-07-27] MEDS: Ensure Clear 120 ML Liquid PO ×3 (08:52→17:03)
[2021-07-27 09:05] VITALS: PULSE 117; RESP 16; O2SAT 97
[2021-07-27] MEDS: Sodium Chloride 0.65% 1 SPRAY SPRAY.BTL NASAL (09:28)
--- NOTE | 2021-07-27 11:22 | NURSING ---
Dr Krause updated regarding pt c/o sore throat, congestion, moist productive cough. new order for zpak and PRN robitussin.
[2021-07-27] MEDS: Azithromycin 250 MG Tablet 500 MG PO (13:08)
[2021-07-27 14:41] VITALS: BP 114/72; PULSE 116; RESP 16; TEMP 37
[2021-07-27 17:03] VITALS: PULSE 77
[2021-07-27] MEDS: Mirtazapine 15 MG Tablet 7.5 MG PO (20:08)
[2021-07-27] MEDS: Atorvastatin Calcium 40 MG Tablet PO (20:08)
[2021-07-27] MEDS: Loperamide 2 MG Capsule PO (20:08)
--- NOTE | 2021-07-28 01:40 | NURSING ---
Patient requesting PRN Imodium as she had been having many loose stools. This nurse witnessed loose stools. PRN given per order, with positive results noted.
[2021-07-28] MEDS: Methotrexate 2.5 MG Tablet 10 MG PO (05:27)
[2021-07-28 05:28] VITALS: PULSE 79
[2021-07-28] MEDS: Metoprolol(XL)Succ 100 MG Tablet PO (05:28)
[2021-07-28] MEDS: Sertraline 50 MG Tablet PO (05:28)
[2021-07-28] MEDS: Cephalexin 500 MG Capsule PO (05:28)
[2021-07-28] MEDS: Cholecalciferol (VIT D3) 25 MCG TABLET (1,000 UNITS) PO (05:28)
[2021-07-28] MEDS: APIXABAN 5 MG TABLET PO (05:28)
[2021-07-28 05:31] VITALS: PULSE 106; RESP 16; O2SAT 98
[2021-07-28 05:35] VITALS: BP 122/73; PULSE 107; RESP 15; TEMP 36.6
[2021-07-28] MEDS: Iron Polysaccharide Complex 150 MG CAPSULE PO (07:52)
[2021-07-28] MEDS: Ensure Clear 120 ML Liquid PO (07:52)
[2021-07-28] MEDS: Azithromycin 250 MG Tablet PO (07:53)
--- NOTE | 2021-07-28 11:02 | NURSING ---
report called to Wei Lincoln.
== END 2021-07-28 10:35 | disposition home or self-care (01) | DRG 310 ==
PROVIDERS: Admitting Provider Family Medicine Geriatric Medicine; PCP Family Medicine; Visit Provider Family Medicine Geriatric Medicine
DX: I48.19 Other persistent atrial fibrillation (principal); D50.9 Iron deficiency anemia, unspecified; M06.9 Rheumatoid arthritis, unspecified; E78.5 Hyperlipidemia, unspecified; E55.9 Vitamin D deficiency, unspecified; I10 Essential (primary) hypertension; Z79.01 Long term (current) use of anticoagulants; F32.A Depression, unspecified; M81.0 Age-related osteoporosis without current pathological fracture; Z79.82 Long term (current) use of aspirin; Z79.83 Long term (current) use of bisphosphonates; Z79.899 Other long term (current) drug therapy; Z79.52 Long term (current) use of systemic steroids; Z86.16 Personal history of COVID-19
CPT/HCPCS: 36415; 74018; 80048; 85014; 85018; 85025; 87070; 87205; 92507; 92523; 92610; 93306; 97110; 97116; 97162; 97166; 97530; 97535; 97802; G0008; 90686; A4216; J8610

== ENCOUNTER 2021-06-27 10:42 | Outpatient (CLI) | payer MEDICARE, OTHER, SELFPAY ==
--- NOTE | 2021-06-27 10:44 | ECHOD_ITS ---
Reason For Study: AFIB/FLUTTER Procedure This was a 2D Doppler, Color Flow transthoracic echocardiogram. The study was technically difficult. Exam performed portable in patient room. Left Ventricle Normal LV size. Left ventricular systolic function is normal. The estimated ejection fraction is 60 %. Unable to assess diastolic dysfunction. No regional wall motion abnormalities noted. Right Ventricle Normal RV size. Normal systolic function. Atria The left atrium is severely enlarged. The right atrium is severely enlarged. No doppler evidence for ASD. Mitral Valve There is no mitral annular calcification. Normal mitral valve. Mild-Moderate (1-2+) mitral valve insufficiency. Tricuspid Valve Normal tricuspid valve. Mild to moderate (1-2+) tricuspid valve insufficiency. Right ventricular systolic pressure estimated to be 27 mmHg. Aortic Valve Trisinus/trileaflet aortic valve. Mild diffuse aortic valve thickening. Mild focal aortic valve calcification. Pulmonic Valve The pulmonic valve is not well visualized. Mild (1+) pulmonic valve insufficiency. Great Vessels Normal sized aortic root. Pericardium/Pleural No pericardial effusion. MMode/2D Measurements & Calculations LVIDd: 4.2 cm IVSd: 0.94 cm Ao root diam: 3.2 cm LVIDs: 2.9 cm LVPWd: 0.95 cm RVDd: 2.8 cm FS: 30.3 % LAV(MOD-bp): 68.1 ml LA A4 area: 24.3 cm2 LA dimension(2D): 4.2 cm LAV(MOD-bp) Indexed: 42.7 ml/m2 LAV(MOD-sp2): 62.1 ml LAV(MOD-sp4): 71.6 ml RA A4 area: 16.2 cm2 Doppler Measurements & Calculations MV E max gina: 85.5 cm/sec Ao V2 max: 127.0 cm/sec LV V1 max: 99.4 cm/sec Ao max P.5 mmHg LV V1 max P.0 mmHg PA V2 max: 67.5 cm/sec TR max gina: 243.4 cm/sec TR max P.7 mmHg ECHO/Echo Complete Interpretation Summary The study was technically difficult. Left ventricular systolic function is normal. The estimated ejection fraction is 60 %. The left atrium is severely enlarged. The right atrium is severely enlarged. Mild-Moderate (1-2+) mitral valve insufficiency. Mild to moderate (1-2+) tricuspid valve insufficiency. Mild diffuse aortic valve thickening. Mild focal aortic valve calcification. Mild (1+) pulmonic valve insufficiency. Right ventricular systolic pressure estimated to be 27 mmHg. Unable to assess diastolic dysfunction. Ordering Physician: Radames Sharpe Referring Physician: Fish Krause Chi Performed By: Valerie Rivera, MAYUR, RVT
== END 2021-06-27 23:59 | disposition short-term general hospital (02) ==
LOC: CVS 10:43
PROVIDERS: PCP Family Medicine; Referring Provider Family Medicine Geriatric Medicine; Visit Provider Family Medicine Geriatric Medicine
DX: I34.0 Nonrheumatic mitral (valve) insufficiency (principal)
CPT/HCPCS: 93306

== ENCOUNTER 2021-09-24 11:50 | Outpatient (CLI) | payer MEDICARE, OTHER, SELFPAY ==
[2021-09-24 13:46] LABS: Absolute Lymphocyte Count 0.49 X10^3/uL (0.83-4.51); Absolute Neutrophil Count 5.3 X10^3/uL (2.0-7.7); Basophil% 1.5 % (0-1); Eosinophil# 0.43 X10^3/uL; Eosinophils% 6.3 % (0-5); Hematocrit 35.2 % (37-47); Hemoglobin 10.7 g/dL (12.0-15.0); Lymphocyte # 0.49 X10^3/ul (0.83-4.51); Lymphocyte % 7.2 % (19-41); Mean Corp Hgb Conc 30.4 g/dL (32-36); Mean Corpuscular Hgb 31.3 pg (27.0-32.0); Mean Corpuscular Volume 102.9 fL (81-99); Mean Platelet Vol. 10.2 fl (6.2-12.0); Monocyte% 5.9 % (0-10); NRBC Flagged by Analyzer 0 % (0-5); Neutrophil # 5.34 X10^3/uL (2.7-7.7); Neutrophil % 78.8 % (47-70); POSITIVE DIFFERENTIAL YES; POSITIVE MORPHOLOGY YES; Platelet Count 247 K/mm3 (150-450); RBC Distribution Width CV 17.9 % (11.6-14.6); RBC Distribution Width SD 67.3 fl (35.1-43.9); Red Blood Count 3.42 M/mm3 (4.2-5.4); White Blood Count 6.8 K/mm3 (4.4-11.0)
[2021-09-24 13:47] LABS: Differential Indicated SCAN CRITERIA MET
[2021-09-24 14:02] LABS: BNP,B-Type NATRIURETIC PEPTIDE 261.2 pg/mL (0-100)
[2021-09-24 14:11] LABS: Anisocytosis 1+
[2021-09-24 14:35] LABS: Anion Gap 2 (5-15); BUN 22 mg/dL (7-18); BUN/Creat Ratio 27.2 RATIO (10-20); Calcium,Total 8.7 mg/dL (8.5-10.1); Chloride 112 mmol/L (98-107); Creatinine, Serum 0.81 mg/dL (0.55-1.02); EST Glomerular Filtration Rate 72 mL/min (>60); Est Glom Filt Rate - Afr Amer 87 mL/min (>60); Glucose 100 mg/dL (74-106); Magnesium 2.3 mg/dL (1.6-2.6); Sodium Level 141 mmol/L (136-145); T4 Free Direct 0.78 ng/dL (0.76-1.46); Thyroid Stim Hormone (TSH) 2.16 uIU/mL (0.358-3.74)
== END 2021-09-24 23:59 | disposition home or self-care (01) ==
PROVIDERS: Referring Provider Nurse Practitioner Gerontology; Visit Provider Nurse Practitioner Gerontology
DX: R06.00 Dyspnea, unspecified (principal); I48.19 Other persistent atrial fibrillation; I10 Essential (primary) hypertension
CPT/HCPCS: 36415; 80048; 83735; 83880; 84439; 84443; 85025

== ENCOUNTER 2022-12-22 15:53 | Emergency (ER) | payer MEDICARE, OTHER, MEDICAID, SELFPAY ==
[2022-12-22 15:54] VITALS: BP 113/59; PULSE 50; RESP 16; TEMP 36.8; O2SAT 97; BMI 30.9
--- NOTE | 2022-12-22 16:00 | EDS_ITS ---
HPI History of Present Illness Chief Complaint: Lower Extremity Injury [facility] Medical History (Reviewed 06/25/22 @ 10:13 by Ashley Oneal [employer] ENERGY INSTALLER, [employer]ERGY INSTALLER-C) Anemia CAP (community acquired pneumonia) Cardiac dysrhythmia Chronic a-fib COVID Essential hypertension Failure to thrive Lower extremity pain, left Nausea and vomiting Non-rheumatic tricuspid valve insufficiency Nonrheumatic mitral (valve) stenosis Nonrheumatic mitral valve regurgitation Osteopenia Persistent atrial fibrillation Rheumatoid arthritis Rheumatoid arthritis Rheumatoid arthritis Sepsis associated hypotension Squamous cell carcinoma of skin Stroke Viral myocarditis Home Medications leucovorin calcium 5 mg tablet 5 mg PO MO RA 07/13/17 [History Last Taken 02/11/21] cholecalciferol (vitamin D3) 25 mcg (1,000 unit) tablet 25 mcg PO DAILY supplement 03/05/20 [History Last Taken 02/13/21] apixaban 5 mg tablet 5 mg PO BID blood thinner 06/28/20 [History Last Taken 02/14/21] atorvastatin 40 mg tablet 40 mg PO QHS cholesterol 06/28/20 [History Last Taken 02/13/21] ondansetron 4 mg disintegrating tablet 4 mg PO Q8H PRN nausea and vomiting #10 tabs 06/18/21 [Rx Last Taken Unknown] acetaminophen 500 mg tablet 1,000 mg (2 x 500 mg) PO Q6H PRN PRN Pain Score 1-10 #0 tabs 07/24/21 [Rx Last Taken Unknown] loratadine 10 mg tablet (Claritin) 10 mg PO DAILY 09/24/21 [History Last Taken Unknown] metoprolol succinate 100 mg tablet,extended release 24 hr 100 mg PO QAM 30 days #30 tabs 09/24/21 [Rx Last Taken Unknown] mirtazapine 15 mg tablet 15 mg PO QHS 09/24/21 [History Last Taken Unknown] potassium chloride 20 mEq tablet,extended release(part/cryst) 20 meq PO DAILY 09/24/21 [History Last Taken Unknown] sertraline 25 mg tablet 25 mg PO DAILY 09/24/21 [History Last Taken Unknown] sertraline 50 mg tablet 50 mg PO DAILY Mood 09/24/21 [History Last Taken Unknown ] silver (SilvaSorb topical gel,extended release) 1 applic topical Q OTHER DAY PRN 12/25/21 [History Last Taken Unknown] methotrexate sodium 2.5 mg tablet 15 mg PO Hairston@1800 06/25/22 [History Last Taken Unknown] polysaccharide iron complex 150 mg iron capsule (Ferrex) 150 mg PO DAILY 06/25/22 [History Last Taken Unknown] diltiazem HCl 180 mg capsule,extended release 24 hr 180 mg PO QHS #30 caps 07/23 [Rx Last Taken Unknown] furosemide 20 mg tablet 10 mg (1/2 x 20 mg) PO DAILY #15 tabs 08/01/22 [Rx Last Taken Unknown] Allergy/AdvReac Type Severity Reaction Status Date / Time doxycycline AdvReac Severe GI Upset Verified 12/22/22 15:56 hydrochlorothiazide AdvReac Unknown Unknown Verified 12/22/22 15:56 tramadol HCl [From Ultr[facility]] AdvReac Vomiting Verified 12/22/22 15:56 Family History (Reviewed 06/25/22 @ 10:13 by Ashley Oneal [employer] ENERGY INSTALLER, [employer] ENERGY INSTALLER-C) Mother Heart disease Hypertension Father Cancer lung Surgical History History of breast biopsy History of carpal tunnel release of both wrists History of hip replacement, total History of knee replacement Social History household members: spouse Smoking Status: Never smoker alcohol intake: never substance use type: does not use caffeine: Yes Type: tea Number of servings: 3 EXAM Physical Exam Const Vital Signs: 12/22/22 15:54 12/22/22 17:57 Temperature 98.2 F 97.8 F Temperature Source Temporal Pulse Rate 50 L 78 Respiratory Rate 16 14 Blood Pressure 113/59 L 141/76 H Blood Pressure Mean 77 Pulse Ox 97 98 Oxygen Delivery Method Room Air [facility] Narrative Medical decision making narrative: HISTORY OF PRESENT ILLNESS: 87-year-old female here with right ankle pain, right knee pain. States she had mechanical fall yesterday injuring his extremities. States at the extended-care facility there was x-ray done and showed a right ankle fracture. There is no he ad trauma loss of consciousness noted. REVIEW OF SYSTEMS: Pertinent positives: Ankle pain Pertinent negatives: Focal numbness weakness or loss sensation. PHYSICAL EXAM: Nursing triage notes reviewed, Vital signs reviewed Constitutional: please see mdm Extremities: No edema, TTP over right talus, no metatarsal TTP noted Neuro: Intact sensation L1-S1 dermatomal distributions. Intact 5/5 strength in hip flexion (T12-L3). Knee extension (L2-L4). Ankle dorsiflexion (L4-L5). Ankle plantar flexion (S1). Great toe extension (L5). 2+ patellar and Achilles DTRs. Skin: No rash or lesions noted MEDICAL DECISION MAKING: Chief Complaint: Right ankle pain, right knee pain External records reviewed: No recent [facility] imaging of the involved extremity Factors affecting care: Atrial fibrillation, hypertension, debility, Social determinants of health: Elderly History obtained from others: none Consults: none ALL IMAGES (IF OBTAINED) HAVE BEEN PERSONALLY REVIEWED AND INTERPRETED BY MY SELF. MDM Narrative: Patient was hemodynamically stable, bradycardic otherwise afebrile and nontoxic- appearing. Right lower extremity is neurovascularly intact. I considered the following differential diagnosis: Ankle, knee fracture dislocation, contusion, other musculoskeletal injury. X-ray was negative for acute fracture dislocation. Patient is appropriate discharge home. RICE instructions discussed. Of note patient had a read from her half-way facility which showed evidence of subacute metatarsal fractures. Her exam today had no medical tarsal tenderness. She was provided with a postop shoe for support and comfort and given orthopedics follow-up. The patient and/or family, caregivers express understanding. The patient and/or family, caregivers agrees with the plan. Total critical care time today provided was at least 0 minutes. This excludes separately billable procedures. Critical care time (if documented) is secondary to the patient having high probability of clinically significant/life threatening deterioration in the patient's condition which required my urgent intervention. Shared decision making: I will have a discussion with the patient and or visitors regarding risk/benefits of further testing or admission. They will be made aware of of the risk/benefits inherent in this decision they will be given the opportunity to voice understanding. Radiography Diagnostic Testing: Clinical Impression(s) from Imaging Studies Ankle X-Ray 12/22/22 16:28 IMPRESSION: There is soft tissue swelling. Electronically Signed: Rei Gee MD at 17:07 EDT , ADDENDUM: 12/22/22 1806 IMPRESSION: undefined ADDENDUM: 12/22/22 181 IMPRESSION: undefined Knee X-Ray 12/22/22 16:28 IMPRESSION: Degenerative arthrosis. Chronic appearing sclerotic changes of the tibial plateaus. This may relate to prior traumatic injury, Pagets disease, or bone infarct, or bone glue placement. Electronically Signed: Rei Gee MD at 16:42 EDT Reading Location ID and State: [facility] / [place] , Service support , Discharge Plan Triage Chief Complaint: Lower Extremity Injury ED Provider: Mode Waltesr Dx/Rx/DC Orders Clinical Impression: Contusion of foot Instructions: Bone Contusion Prescriptions: No Action leucovorin calcium 5 mg tablet 5 mg PO MO Patient Comments: After methrotrexate cholecalciferol (vitamin D3) 25 mcg (1,000 unit) tablet 25 mcg PO DAILY mirtazapine 15 mg tablet 15 mg PO QHS potassium chloride 20 mEq tablet,ER particles/crystals 20 meq PO DAILY sertraline 25 mg tablet 25 mg PO DAILY Rx Instructions: Take with 50 mg tablet to = 75 mg daily loratadine [Claritin] 10 mg tablet 10 mg PO DAILY metoprolol succinate 100 mg tablet extended release 24 hr 100 mg PO QAM 30 Days Qty: 30 0RF SilvaSorb Gel,Extended Release 1 applic topical Q OTHER DAY PRN polysaccharide iron complex [Ferrex 150] 150 mg iron capsule 150 mg PO DAILY methotrexate sodium 2.5 mg tablet 15 mg PO Hairston@1800 atorvastatin 40 MG tablet 40 mg PO QHS apixaban 5 MG tablet 5 mg PO BID ondansetron 4 mg tablet,disintegrating 4 mg PO Q8H PRN (Reason: nausea and vomiting) Qty: 10 0RF sertraline 50 mg tablet 50 mg PO DAILY Rx Instructions: Take with 25 mg tablet to = 75 mg daily acetaminophen 500 mg Tablet 1,000 mg PO Q6H PRN PRN (Reason: Pain Score 1-10) Qty: 0 0RF furosemide 20 mg tablet 10 mg PO DAILY Qty: 15 6RF diltiazem HCl 180 mg capsule,extended release 24hr 180 mg PO QHS Qty: 30 3RF Primary Care Provider: SORAYA CUBA Referrals: Ramesh Almonte MD [Med Staff - Active Staff] - Activity Restrictions/Additional Instructions: Thank you for trusting us with your care today! Please take Tylenol (2 pills, 650 mg), ibuprofen (2 pills, 400 mg) every 6 hours as needed for pain and fever control. Please return to the emergency department if your symptoms change or worsen. Specifically if you develop worsening pain, change of color, coolness to touch or loss of movement or sensation involved extremity. Please follow with your primary care physician and orthopedics (Dr. Almonte) for further outpatient evaluation and management. Disposition Disposition: Home, Self Care Discharge Date/Time: 12/22/22 18:22
--- NOTE | 2022-12-22 16:28 | RAD_ITS ---
STUDY: XR Knee 1 or 2 Views 12/22/2022 4:39 PM REASON FOR EXAM: Female, 87 years old. knee pain after fall r/o fracture or dislocation TECHNIQUE: XR Knee 2 Views RIGHT COMPARISON: None FINDINGS: Normal visualized distal femur. Normal visualized proximal fibula. Normal proximal tibiofibular articulation. Diffuse sclerotic area involving the lateral tibial plateau. Minimal sclerosis involving the medial Tibial plateau. This appears chronic. There is moderate degenerative arthrosis of the medial femorotibial compartment with moderate joint space narrowing. There is severe degenerative arthrosis of the lateral femorotibial compartment with severe joint space narrowing. There is mild degenerative arthrosis of the patellofemoral articulation. There are atherosclerotic calcifications. RAD/Knee 1 or 2 Views IMPRESSION: Degenerative arthrosis. Chronic appearing sclerotic changes of the tibial plateaus. This may relate to prior traumatic injury, Pagets disease, or bone infarct, or bone glue placement. Electronically Signed: Rei Gee MD at 16:42 EDT ,
--- NOTE | 2022-12-22 16:28 | RAD_ITS ---
STUDY: XR Ankle 2 Views REASON FOR EXAM: Female, 87 years old. ANKLE PAIN TECHNIQUE: XR Ankle 2 Views RIGHT COMPARISON: None. FINDINGS: Normal visualized distal tibia and fibula. Normal medial and lateral malleoli. Normal tibiotalar articulation and ankle mortise. There are atherosclerotic vascular calcifications. The visualized subtalar, talonavicular, calcaneocuboid and tarsal articulations are normal. There is a plantar calcaneal spur. There is soft tissue swelling around the ankle. RAD/Ankle 2 Views IMPRESSION: There is soft tissue swelling. Electronically Signed: Rei Gee MD at 17:07 EDT ,
[2022-12-22] MEDS: Ibuprofen 200 MG Tablet 400 MG PO (16:43)
[2022-12-22] MEDS: Acetaminophen 325 MG Tablet 650 MG PO (16:44)
[2022-12-22 17:57] VITALS: BP 141/76; PULSE 78; RESP 14; TEMP 36.6; O2SAT 98
--- NOTE | 2022-12-22 18:22 | ED.RN ---
REPORT CALLED TO TIFFANIE ANAYA. PT. NURSE NOT AVAILABLE
== END 2022-12-22 18:22 | disposition home or self-care (01) ==
PROVIDERS: Emergency Provider Emergency Medicine; Visit Provider Emergency Medicine
DX: S90.31XA Contusion of right foot, initial encounter (principal); M06.9 Rheumatoid arthritis, unspecified; I48.19 Other persistent atrial fibrillation; R53.81 Other malaise; I10 Essential (primary) hypertension; Z79.899 Other long term (current) drug therapy; Z79.01 Long term (current) use of anticoagulants; W19.XXXA Unspecified fall, initial encounter; Y92.099 Unspecified place in other non-institutional residence as the place of occurrence of the external cause
CPT/HCPCS: 73560; 73600; 99285

== ENCOUNTER 2023-04-30 10:45 | Emergency (ER) | payer MEDICARE, OTHER, MEDICAID, SELFPAY ==
[2023-04-30 10:50] VITALS: BP 139/83; PULSE 125; RESP 18; TEMP 37; O2SAT 95; BMI 30.7
--- NOTE | 2023-04-30 10:59 | EKG12_ITS ---
Test Reason : SOB Blood Pressure : / mmHG Vent. Rate : 125 BPM Atrial Rate : 125 BPM P-R Int : 232 ms QRS Dur : 096 ms QT Int : 246 ms P-R-T Axes : 044 050 255 degrees QTc Int : 355 ms Sinus tachycardia with 1st degree A-V block Left atrial enlargement ST & T wave abnormality, consider inferior ischemia ST & T wave abnormality, consider anterolateral ischemia Abnormal ECG Confirmed by ZACH GALAN, VIGNESH ([id number]), desk editor KENDRA MCKEON ([id number]) on 05/04/2023 8:15:00 AM Referred By: ANN Confirmed By:ZOHRA SERRANO MD
--- NOTE | 2023-04-30 10:59 | CT_ITS ---
STUDY: CTA CHEST REASON FOR EXAM: Female, 87 years old. Shortness of breath RADIATION DOSAGE (If Supplied By Facility): CTDIvol = ( 9.35 ) mGy, DLP = ( 284.56 ) mGycm TECHNIQUE: The examination was performed with the intravenous administration of IV 100mL Isovue-370. Post-processing of the angiographic images was performed, with multiplanar reformation and 3D reconstruction. Individualized dose optimization techniques were used for this CT. COMPARISON: None. FINDINGS: Normal enhancement of the main pulmonary artery and right and left pulmonary arteries. Normal enhancement of the bilateral peripheral pulmonary arteries. There is no demonstrated pulmonary embolism. There is atherosclerotic calcification of the aortic arch with tortuosity. There is no demonstrated aortic dissection. There are calcifications of the coronary arteries. Normal mediastinum. Normal hilar regions. Normal visualized trachea and bronchi. The lungs are well expanded. Mild degree of emphysematous changes. There are several geographic areas of groundglass appearance in both upper lobes suggestive of possible chronic inflammatory changes versus scarring. There is evidence of the scarring at the lung bases with the tiny bilateral pleural effusions slightly worse on the right side. Normal chest wall structures. There are degenerative changes of thoracic spine. Normal visualized upper abdomen. CT/CTA Chest W/WO Contrast IMPRESSION: Mild emphysematous changes with Focal areas of groundglass appearance worse in the upper lobes suggestive of a either chronic inflammatory changes versus early scarring. Small bilateral pleural effusions left greater than right with bibasilar atelectasis and/or scarring. Electronically Signed: Joseph Eagle MD at 13:16 EST ,
[2023-04-30] MEDS: 0.9% Normal Saline (1000mL) 1,000 ML 999 ML IV (11:35)
[2023-04-30] MEDS: dilTIAZem 25 MG/5 ML Vial 10 MG IV BOLUS (11:35)
--- NOTE | 2023-04-30 11:40 | EDS_ITS ---
HPI History of Present Illness Chief Complaint: Shortness of Breath Narrative Narrative: 87-year-old female presents from [facility] with elevated heart rate. She states in the past she has had elevated heart rate for a few minutes but it usually goes away after a few minutes. She denies any chest pain or shortness of breath. In review of her problem list, she does have atrial fibrillation with RVR. Additionally, she states that she has been at the facility for over 2 years and her is there as well. She presents as a DNR comfort care only but with elevated heart rate. [facility] Medical History Anemia CAP (community acquired pneumonia) Cardiac dysrhythmia Chronic a-fib COVID Essential hypertension Failure to thrive Lower extremity pain, left Nausea and vomiting Non-rheumatic tricuspid valve insufficiency Nonrheumatic mitral (valve) stenosis Nonrheumatic mitral valve regurgitation Osteopenia Persistent atrial fibrillation Rheumatoid arthritis Rheumatoid arthritis Rheumatoid arthritis Sepsis associated hypotension Squamous cell carcinoma of skin Stroke Viral myocarditis Home Medications leucovorin calcium 5 mg tablet 5 mg PO MO RA 07/13/17 [History Last Taken 02/11/21] cholecalciferol (vitamin D3) 25 mcg (1,000 unit) tablet 25 mcg PO DAILY supplement 03/05/20 [History Last Taken 02/13/21] apixaban 5 mg tablet 5 mg PO BID blood thinner 06/28/20 [History Last Taken 02/14/21] atorvastatin 40 mg tablet 40 mg PO QHS cholesterol 06/28/20 [History Last Taken 02/13/21] ondansetron 4 mg disintegrating tablet 4 mg PO Q8H PRN nausea and vomiting #10 tabs 06/18/21 [Rx Last Taken Unknown] acetaminophen 500 mg tablet 1,000 mg (2 x 500 mg) PO Q6H PRN PRN Pain Score 1-10 #0 tabs 07/24/21 [Rx Last Taken Unknown] loratadine 10 mg tablet (Claritin) 10 mg PO DAILY 09/24/21 [History Last Taken Unknown] metoprolol succinate 100 mg tablet,extended release 24 hr 100 mg PO QAM 30 days #30 tabs 09/24/21 [Rx Last Taken Unknown] mirtazapine 15 mg tablet 15 mg PO QHS 09/24/21 [History Last Taken Unknown] potassium chloride 20 mEq tablet,extended release(part/cryst) 20 meq PO DAILY 09/24/21 [History Last Taken Unknown] sertraline 25 mg tablet 25 mg PO DAILY 09/24/21 [History Last Taken Unknown] sertraline 50 mg tablet 50 mg PO DAILY Mood 09/24/21 [History Last Taken Unknown] silver (SilvaSorb topical gel,extended release) 1 applic topical Q OTHER DAY PRN 12/25/21 [History Last Taken Unknown] methotrexate sodium 2.5 mg tablet 15 mg PO Hairston@1800 06/25/22 [History Last Taken Unknown] polysaccharide iron complex 150 mg iron capsule (Ferrex) 150 mg PO DAILY 06/25/22 [History Last Taken Unknown] diltiazem HCl 180 mg capsule,extended release 24 hr 180 mg PO QHS #30 caps 08/01/22 [Rx Last Taken Unknown] furosemide 20 mg tablet 10 mg (1/2 x 20 mg) PO DAILY #15 tabs 08/01/22 [Rx Last Taken Unknown] Allergy/AdvReac Type Severity Reaction Status Date / Time doxycycline AdvReac Severe GI Upset Verified 04/30/23 10:49 hydrochlorothiazide AdvReac Unknown Unknown Verified 04/30/23 10:49 tramadol HCl [From Ultram] AdvReac Vomiting Verified 04/30/23 10:49 Family History Mother Heart disease Hypertension Father Cancer lung Surgical History History of breast biopsy History of carpal tunnel release of both wrists History of hip replacement, total History of knee replacement Social History household members: spouse Smoking Status: Never smoker alcohol intake: never substance use type: does not use caffeine: Yes Type: tea Number of servings: 3 ROS ROS ED ROS Narrative Constitutional: No fever, no chills. HEENT: No sore throat. No neck pain. No loss of vision. No rhinorrhea. Cardiovascular: No chest pain. No palpitations. Reported elevated heart rate. No pedal edema. Respiratory: No cough, no shortness of breath. Abdominal: No abdominal pain. No nausea. No vomiting. Genitourinary: No dysuria. No hematuria. Musculoskeletal: No myalgias. No arthralgias. Neurologic: No headaches. No dizziness. No lightheadedness. Skin: No rash. No change in color. Psychiatric: No depression. No anxiety. EXAM Physical Exam Narrative Exam Narrative: Afebrile. Vital signs noted. HEENT: Normocephalic. Atraumatic. PERRL, EOMI. Neck soft and supple. No point tenderness or step off. Cardiovascular: Positive tachycardia no murmurs, rubs, or gallops appreciated. Respiratory: No tachypnea. Lungs clear to auscultation bilaterally. Gastrointestinal: Abdomen soft, nontender, with normoactive bowel sounds. No rebound or guarding. Neurological: Awake. Alert. Nonfocal, nonlateralizing. Skin: No rash. Normal color. No pallor. Musculoskeletal: No pedal edema. Full range of motion extremities. Const Vital Signs: 04/30/23 10:50 04/30/23 10:53 04/30/23 13:17 Temperature 98.6 F Temperature Source Oral Pulse Rate 125 H 120 H Respiratory Rate 18 22 H Respiratory Effort Short of Breath Blood Pressure 139/83 H 132/70 H Blood Pressure Mean 101 90 Pulse Ox 95 95 Oxygen Delivery Method Room Air Room Air 04/30/23 14:03 04/30/23 14:58 Temperature Temperature Source Pulse Rate 120 H 121 H Respiratory Rate 24 H Respiratory Effort Blood Pressure 125/76 H 100/80 Blood Pressure Mean 92 86 Pulse Ox 95 Oxygen Delivery Method MDM MDM MDM Narrative Medical decision making narrative: Patient is a DNR comfort care only. However, given her continued elevated heart rate, concern would be for pulmonary embolism versus atrial fibrillation with RVR. As she is DNR comfort care only I do not feel that full sepsis work-up is indicated. EKG was obtained and interpreted by myself independently more as atrial fibrillation with rapid ventricular response at 125 bpm. I will obtain a CBC and a BMP along with a CTA of the chest. She was administered Cardizem which she reportedly takes to see if there is any reduction in her heart rate/rate control. Additionally, concern would be for pneumonia or pneumothorax given her elevated heart rate. However, chest x-ray was performed at the facility with the report given there is no evidence of consolidation or pneumothorax. I do not feel repeat chest x-ray is indicated. I have low concern for aortic dissection or cardiac tamponade as she has palpable pulses and her EKG shows no evidence of pulsus paradoxus. I reviewed her laboratory work and she has slightly elevated white count of 12.7 which I think is nonspecific, hemoglobin normal at 12.5, platelet count normal at 200. Electrolyte panel shows chloride slightly elevated at 108, BUN of 18 and creatinine slightly elevated at 1.06, glucose appropriately elevated at 111 with a normal anion gap of 5. CTA was obtained which shows scarring of the bilateral upper lobes or chronic inflammatory changes. I do not feel antibiotics are indicated. After Cardizem, she had a heart rate of 120. It was written in the EMR that they stopped giving her diltiazem on 04/27/2023. She will be given metoprolol here. Also in her chart is a DO NOT RESUSCITATE Comfort Care only order. I do not feel that she requires admission at this time and that she can be discharged back to the correction facility with her DNR order intact. Patient is in stable condition. History & Record Review Discussion w/independent historian: Patient Additional record(s) reviewed:: Prior ED visit and Prior labs Lab Data Attestation: I reviewed the patient's lab results. Labs: Laboratory Results - last 24 hr 04/30/23 11:40 WBC 12.7 H RBC 3.57 L Hgb 12.5 Hct 38.5 MCV 107.8 H MCH 35.0 H MCHC 32.5 RDW Std Deviation 62.8 H RDW Coeff of Matt 15.8 H Plt Count 200 MPV 9.9 Immature Gran % (Auto) 0.800 Neut % (Auto) 78.2 H Lymph % (Auto) 8.4 L [place] % (Auto) 7.6 Eos % (Auto) 3.7 Baso % (Auto) 1.3 H Absolute Neuts (auto) 9.9 H Absolute Lymphs (auto) 1.07 Nucleated RBC % 0 Sodium 140 Potassium 3.8 Chloride 108 H Carbon Dioxide 27.0 Anion Gap 5 BUN 18 Creatinine 1.06 H Estim Creat Clear Calc 32.10 Est GFR (MDRD) Af Amer 63 Est GFR (MDRD) Non-Af 52 L BUN/Creatinine Ratio 17.0 Glucose 111 H Calcium 8.1 L Radiography Diagnostic Testing: Clinical Impression(s) from Imaging Studies Chest CTA 04/30/23 10:59 IMPRESSION: Mild emphysematous changes with Focal areas of groundglass appearance worse in the upper lobes suggestive of a either chronic inflammatory changes versus early scarring. Small bilateral pleural effusions left greater than right with bibasilar atelectasis and/or scarring. Electronically Signed: Joseph Eagle MD at 13:16 EST , Discharge Plan Triage Chief Complaint: Shortness of Breath Other Complaint: Palpitations ED Provider: Ash Mcdonald Dx/Rx/DC Orders Clinical Impression: SOB (shortness of breath), Sinus tachycardia, DNR (do not resuscitate), Atrial fibrillation with rapid ventricular response Instructions: Understanding Tachycardia, ED About Arrhythmias, ED Dyspnea Prescriptions: No Action leucovorin calcium 5 mg tablet 5 mg PO MO Patient Comments: After methrotrexate cholecalciferol (vitamin D3) 25 mcg (1,000 unit) tablet 25 mcg PO DAILY mirtazapine 15 mg tablet 15 mg PO QHS potassium chloride 20 mEq tablet,ER particles/crystals 20 meq PO DAILY sertraline 25 mg tablet 25 mg PO DAILY Rx Instructions: Take with 50 mg tablet to = 75 mg daily loratadine [Claritin] 10 mg tablet 10 mg PO DAILY metoprolol succinate 100 mg tablet extended release 24 hr 100 mg PO QAM 30 Days Qty: 30 0RF SilvaSorb Gel,Extended Release 1 applic topical Q OTHER DAY PRN polysaccharide iron complex [Ferrex 150] 150 mg iron capsule 150 mg PO DAILY methotrexate sodium 2.5 mg tablet 15 mg PO Hairston@1800 atorvastatin 40 MG tablet 40 mg PO QHS apixaban 5 MG tablet 5 mg PO BID ondansetron 4 mg tablet,disintegrating 4 mg PO Q8H PRN (Reason: nausea and vomiting) Qty: 10 0RF sertraline 50 mg tablet 50 mg PO DAILY Rx Instructions: Take with 25 mg tablet to = 75 mg daily acetaminophen 500 mg Tablet 1,000 mg PO Q6H PRN PRN (Reason: Pain Score 1-10) Qty: 0 0RF furosemide 20 mg tablet 10 mg PO DAILY Qty: 15 6RF diltiazem HCl 180 mg capsule,extended release 24hr 180 mg PO QHS Qty: 30 3RF Primary Care Provider: Florence Fields CNP Referrals: Care Physician,No Primary [Non-Staff] - Disposition Disposition: Retirement Facility Discharge Location: [facility]
[2023-04-30 11:47] LABS: Absolute Lymphocyte Count 1.07 X10^3/uL (0.83-4.51); Absolute Neutrophil Count 9.9 X10^3/uL (2.0-7.7); Basophil# 0.17 X10^3/uL; Basophil% 1.3 % (0-1); Eosinophil# 0.47 X10^3/uL; Eosinophils% 3.7 % (0-5); Hematocrit 38.5 % (37-47); Hemoglobin 12.5 g/dL (12.0-15.0); Lymphocyte # 1.07 X10^3/ul (0.83-4.51); Lymphocyte % 8.4 % (19-41); Mean Corp Hgb Conc 32.5 g/dL (32-36); Mean Corpuscular Volume 107.8 fL (81-99); Mean Platelet Vol. 9.9 fl (6.2-12.0); Monocyte# 0.96 X10^3/uL; Monocyte% 7.6 % (0-10); NRBC Flagged by Analyzer 0 % (0-5); Neutrophil # 9.92 X10^3/uL (2.7-7.7); Neutrophil % 78.2 % (47-70); Platelet Count 200 K/mm3 (150-450); RBC Distribution Width CV 15.8 % (11.6-14.6); RBC Distribution Width SD 62.8 fl (35.1-43.9); Red Blood Count 3.57 M/mm3 (4.2-5.4); White Blood Count 12.7 K/mm3 (4.4-11.0)
[2023-04-30 11:55] LABS: Anion Gap 5 (5-15); BUN 18 mg/dL (7-18); Calcium,Total 8.1 mg/dL (8.5-10.1); Chloride 108 mmol/L (98-107); Creatinine, Serum 1.06 mg/dL (0.55-1.02); EST Glomerular Filtration Rate 52 mL/min (>60); Est Glom Filt Rate - Afr Amer 63 mL/min (>60); Glucose 111 mg/dL (74-106); Potassium 3.8 mmol/L (3.5-5.1); Sodium Level 140 mmol/L (136-145)
--- NOTE | 2023-04-30 12:06 | ED.RN ---
pt's daughter, Joann called if for update
[2023-04-30 13:17] VITALS: BP 132/70; PULSE 120; RESP 22; O2SAT 95
[2023-04-30 14:03] VITALS: BP 125/76; PULSE 120
[2023-04-30] MEDS: Metoprolol Tartrate 5 MG/5 ML Vial IV (14:44)
[2023-04-30 14:58] VITALS: BP 100/80; PULSE 121; RESP 24; O2SAT 95
== END 2023-04-30 16:39 | disposition skilled nursing facility (03) ==
PROVIDERS: Emergency Provider Emergency Medicine; Visit Provider Emergency Medicine
DX: R06.02 Shortness of breath (principal); I48.19 Other persistent atrial fibrillation; R00.2 Palpitations; I10 Essential (primary) hypertension; Z51.5 Encounter for palliative care; R00.0 Tachycardia, unspecified
CPT/HCPCS: 71275; 80048; 85025; 93005; 96361; 96374; 96375; 99285; J7030; Q9967